=== PATIENT | male | born 1945 | race Caucasian/White ===

== ENCOUNTER 2019-05-31 01:59 | Day surgery (SDC) | payer MEDICARE, SELFPAY ==
[2019-05-29 14:17] VITALS: BMI 27.0
[2019-05-31 06:19] VITALS: BP 154/64; PULSE 74; RESP 16; TEMP 36.6; O2SAT 100; BMI 27.8
[2019-05-31] MEDS: LACTATED RINGERS 1,000 ML 150 ML IV CONT (06:51)
--- NOTE | 2019-05-31 06:58 | PM.HPGS ---
History of Present Illness History of Present Illness Consent: Risks, benefits, and alternatives have been discussed and questions answered. Patient agrees to proceed with procedure. Chief complaint: Neoplasm Screening/History of Polyps Narrative: Kun Borjas is a 74 year old male With family history of colon cancer here for screening colonoscopy Meds Home Medications and Allergies Home Medications Medication Instructions Recorded Confirmed Type aspirin 81 mg PO DAILY 05/29/19 05/31/19 History fenofibrate 160 mg PO DAILY 05/29/19 05/31/19 History magnesium 30 mg PO DAILY 05/29/19 05/31/19 History metoprolol succinate 50 mg PO DAILY 05/29/19 05/31/19 History Allergies Allergy/AdvReac Type Severity Reaction Status Date / Time meperidine Allergy Severe STOPS HIS Verified 05/31/19 06:34 HEART Tetanus Vaccines and Toxoid Allergy Intermediate Rash Verified 05/29/19 14:02 Vital Signs Vital Signs - 24 hr 05/31/19 06:19 Temperature 36.6 C Pulse Rate 74 Respiratory Rate 16 Blood Pressure 154/64 H Pulse Oximetry 100 Exam Resp: Auscultation: clear to auscultation bilaterally Cardio: Rate: regular rate Rhythm: regular rhythm GI: GI Palp: Yes Soft to palpation and No Tenderness to palpation present (GI) Assessment and Plan Assessment and plan (1) Family history of colon cancer: Code(s): Z80.0 - Family history of malignant neoplasm of digestive organs Status: Acute Assessment and Plan: Colonoscopy with possible biopsy or polypectomy or cautery or injection of substances.
--- NOTE | 2019-05-31 07:15 | WPDANESEPPF ---
Anes - Initial Pre Proc Eval Procedure: Operation Date: 05/31/19 07:30 Proposed Procedures p Screening Colonoscopy - Baron Muniz MD Date/Time: 05/31/19 07:15 Surgeon: Baron Muniz MD Pre Op Diagnosis: Neoplasm Screening/History of Polyps Patient Data Age: 74 Gender: M Height: 5 ft 9 in Weight: 85.5 kg Last Vital Signs Temp 98 F 05/31/19 06:19 Pulse 74 05/31/19 06:19 Resp 16 05/31/19 06:19 BP 154/64 H 05/31/19 06:19 Pulse Ox 100 05/31/19 06:19 Allergies Allergy/AdvReac Type Severity Reaction Status Date / Time meperidine Allergy Severe STOPS HIS Verified 05/31/19 06:34 HEART Tetanus Vaccines and Toxoid Allergy Intermediate Rash Verified 05/29/19 14:02 Home Medications Medication Instructions Recorded Confirmed Type aspirin 81 mg PO DAILY 05/29/19 05/31/19 History fenofibrate 160 mg PO DAILY 05/29/19 05/31/19 History magnesium 30 mg PO DAILY 05/29/19 05/31/19 History metoprolol succinate 50 mg PO DAILY 05/29/19 05/31/19 History Patient hx anesthesia problems: none Family hx anesthesia problems: none PMFSH Past Medical History Medical History (Updated 05/31/19 @ 07:14 by Matthew Francois MD) CAD (coronary artery disease) GERD (gastroesophageal reflux disease) Pacemaker Anes - Eval Final PreProcedure Day of Procedure 05/31/19 07:15 Patient weight: obese Heart: regular rate and rhythm Lungs: clear to auscultation Airway: Mallampati scale class III Neurological: alert and oriented Last oral intake: >/= 8 hours ASA classification: III Emergent: no Anesthetic plan: proceed Anesthesia type and monitoring: general GIVS and standard monitoring Informed Consent: The patient's anesthetic plan and its attendant risks and benefits were discussed with the patient/family/POA. Questions were solicited and answers provided to the satisfaction of the patient/family/POA.
[2019-05-31 07:34] VITALS: BP 111/59; PULSE 71; RESP 14; O2SAT 96
[2019-05-31 07:44] VITALS: BP 108/61; PULSE 72; RESP 14; O2SAT 96
[2019-05-31 07:54] VITALS: BP 127/64; PULSE 68; RESP 16; O2SAT 100
[2019-05-31 08:04] VITALS: BP 129/67; PULSE 70; RESP 14; O2SAT 100
== END 2019-05-31 08:21 | disposition home or self-care (01) ==
PROVIDERS: PCP Nurse Practitioner Adult Health; Visit Provider Internal Medicine Gastroenterology
PROC: 0DJD8ZZ Inspection of Lower Intestinal Tract, Via Natural or Artificial Opening Endoscopic (ICD-10-PCS; CPT 45378; principal; 2019-05-31 07:30)
DX: Z12.11 Encounter for screening for malignant neoplasm of colon (principal); K57.30 Diverticulosis of large intestine without perforation or abscess without bleeding; Z80.0 Family history of malignant neoplasm of digestive organs; I25.10 Atherosclerotic heart disease of native coronary artery without angina pectoris; K21.9 Gastro-esophageal reflux disease without esophagitis; Z95.0 Presence of cardiac pacemaker; Z79.82 Long term (current) use of aspirin; E66.9 Obesity, unspecified; Z68.27 Body mass index [BMI] 27.0-27.9, adult
CPT/HCPCS: G0105; J2704; J7120

== ENCOUNTER 2019-07-10 15:15 | Observation (INO) | payer MEDICARE, OTHER, SELFPAY ==
[2019-07-10] VITALS (13 sets, daily range): BP systolic 115–139; BP diastolic 55–83; PULSE 71–83; RESP 14–18; TEMP 36.5–37.1; O2SAT 96–100; BMI 26.9
--- NOTE | ~2019-07-10 | XR_ITS ---
EXAMINATION: XR chest 1V portable EXAM DATE: 07/10/2019 15:56 INDICATION: Weakness, shortness of breath, fever and cough. Vomiting. TECHNIQUE: Portable AP frontal chest x-ray was obtained. Comparison is made to prior examination from 12/28/2016. FINDINGS: There is a dual lead pacemaker/AICD seen with leads projecting over the expected locations of the right atrial appendage and right ventricle. The lungs are clear. There are no pleural effusio ns. Cardiac silhouette is prominent but magnified on this AP technique. There is no pneumothorax s uspected. There are mild bony degenerative changes. There are cholecystectomy clips. IMPRESSION: No acute cardiopulmonary findings. Reviewed, dictated and finalized at location A.
--- NOTE | 2019-07-10 15:30 | ECG_ITS ---
Measurements Intervals [place] Rate: 80 P: 41 NH: 188 QRS: -11 QRSD: 169 T: 85 QT: 407 QTc: 472 Interpretive Statements ATRIAL SENSE- ELECTRONIC VENTRICULAR PACEMAKER BASELINE ARTIFACT- I, II, III, AVR, AVL, AVF NO FURTHER INTERPRETATION IS POSSIBLE ATYPICAL ECG Electronically Signed On 07-10-2019 16:17:18 CDT by Martell Reyes D.O.
--- NOTE | 2019-07-10 16:06 | PC.NURSE ---
AYSHA from Dr. Pete to continue NS infusion from EMS at bolus rate
--- NOTE | 2019-07-10 16:15 | ED.WEAKNESS ---
HPI - Weakness General Chief complaint: Weakness Stated complaint: FATIQUE/COUGH/FEVER Time Seen by Provider: 07/10/19 15:34 Source: patient Mode of arrival: EMS Limitations: no limitations History of Present Illness HPI Narrative: Patient is a 68 6Y male presents to the emergency department via EMS for multiple complaints. Patient reports onset of symptoms approximately 10 days ago. Patient had fever as high as 101, cough, bilateral rib pain, nausea, and vomiting. Patient states the cough and rib pain have improved, but he is continued to have nausea and feeling ill. Patient states when he gets up he feels like he has to lay back down. He does not per se reports feeling sick at his stomach or dizzy, just weak and needing to lay back down. Patient was given some medications by his primary care physician for his respiratory symptoms. He states her respiratory symptoms improved, but he still is not eating or drinking much at all. Patient states he is urinating very little and his urine is dark. Patient spoke with his primary care today who advised to come to the ER for evaluation. Patient reports he has lost approximately 12 to 15 pounds. MD Complaint: generalized weakness Location: generalized Associated symptoms: chest pain, fever/chills, loss of appetite, nausea/vomiting and shortness of breath Related Data Home Medications Medication Instructions Recorded Confirmed aspirin 81 mg PO DAILY 05/29/19 05/31/19 fenofibrate 160 mg PO DAILY 05/29/19 05/31/19 metoprolol succinate 50 mg PO DAILY 05/29/19 05/31/19 cholecalciferol (vitamin D3) 25 mcg PO DAILY 07/10/19 [Vitamin D3] hydrocodone-acetaminophen 1 tablet PO Q8H PRN 07/10/19 magnesium 500 mg PO DAILY 07/10/19 pantoprazole 40 mg PO DAILY 07/10/19 vitamins A,C,[id number]-[id number] 1 tablet PO BID 07/10/19 [PreserVision AREDS] Allergies Allergy/AdvReac Type Severity Reaction Status Date / Time meperidine Allergy Severe STOPS HIS Verified 07/10/19 17:09 HEART Tetanus Vaccines and Toxoid Allergy Intermediate Rash Verified 07/10/19 17:09 Review of Systems Review of Systems: All systems reviewed & are unremarkable except as noted in HPI and below Constitutional: Constitutional: Reports chills, Reports excessive sweating, Reports fatigue, Reports fever(s), Reports malaise and Reports weakness Cardiovascular: Cardiovascular: Reports chest pain Respiratory: Respiratory: Reports cough and Reports dyspnea Gastrointestinal: Gastrointestinal: Reports abdominal pain, Reports nausea and Reports vomiting Musculoskeletal: Musculoskeletal: Reports back pain PMFSH Past Medical History Medical History CAD (coronary artery disease) Complete heart block COPD (chronic obstructive pulmonary disease) Depression GERD (gastroesophageal reflux disease) Hyperlipidemia Hypertension Pacemaker Pulmonary embolism Surgical History Surgical History History of appendectomy History of cardiac catheterization History of colonoscopy History of lumbar fusion History of repair of left rotator cuff Social History Social History (Updated 07/10/19 @ 16:23 by Sarah Pete MD) Living arrangements: with family Gender identity (if verbalized by the patient): Male Exam Const: General: cooperative, no acute distress and alert Nutritional Appearance: well nourished Orientation/consciousness: patient oriented x3 Limitations: no limitations Eyes: Conjunctivae: conjunctivae normal Pupils: Equal, round and reactive pupils present Resp: Effort & Inspection: normal respiratory effort Auscultation: clear to auscultation bilaterally Cardio: Rate: regular rate Rhythm: regular rhythm GI: GI Palp: Yes Soft to palpation and No Tenderness to palpation present (GI) Auscultation: normal bowel sounds Skin: General skin exam: normal color Neuro: General: patient
[2019-07-10 16:21] LABS: Basophils Percent Auto 0.4 % (0.2-1.2); Eosinophils Absolute Auto 0.6 K/mm3 (0-0.3); Eosinophils Percent Auto 7.4 % (0-4.4); Hematocrit 41.9 % (42.0-52.0); Hemoglobin 13.8 g/dL (14.0-18.0); Immature Granulocyte Absolute 0.02 K/mm3 (0.00-0.031); Immature Granulocyte Percent A 0.3 % (0-0.5); Lymphocytes Absolute Auto 1.75 K/mm3 (0.9-3.2); Lymphocytes Percent Auto 22.5 % (18.3-44.2); Mean Corpuscular HGB Conc 32.9 g/dl (32-36); Mean Corpuscular Hemoglobin 29.2 pg (26-34); Mean Corpuscular Volume 88.8 fl (80-100); Mean Platelet Volume 10.7 fl (7.4-10.4); Monocytes Absolute Auto 0.9 K/mm3 (0.1-0.6); Neutrophils Absolute Auto 4.6 K/mm3 (1.3-6.7); Neutrophils Percent Auto 58.4 % (45.5-73.1); Platelet Count Result 186 k/mm3 (150-375); Red Blood Count 4.72 M/mm3 (4.6-6.20); Red Cell Distribution Width 13.7 % (11.5-14.5); White Blood Count 7.8 K/mm3 (4.5-10.0)
[2019-07-10 16:27] LABS: Add Urine Microscopic? YES; Appearance Urine Clear (Clear); Bacteria Urine Trace /hpf; Bilirubin Urine Negative (Negative); Blood Urine Negative (Negative); Color Urine Yellow (Yellow); Glucose Urine UA Negative (Negative); Ketones Urine Negative (Negative); Leukocyte Esterase Ur Negative LEU/UL (Negative); Mucus Urine Heavy /lpf; Nitrate Urine Negative (Negative); Protein Urine 1+ mg/dL (Negative); Specific Grav Ur 1.026 (1.001-1.035); Squamous Epithelial Cell Urine Rare /hpf (Few); Urobilinogen Urine Negative mg/dL (<2.0); WBC Urine 0-3 /hpf
[2019-07-10 16:48] LABS: Alanine Aminotransferase 55 U/L (4-50); Alkaline Phosphatase 74 U/L (38-126); Aspartate Amino Transferase 70 U/L (17-59); Bilirubin,Total 0.5 mg/dL (0.2-1.3); Blood Urea Nitrogen 19 mg/dL (9-20); Carbon Dioxide 28 mmol/L (22-30); Chloride 103 mmol/L (98-107); Creatine Kinase 35 U/L (55-170); Estimated Glomerular Filt Rate 54; Glucose 153 mg/dL (75-110); Magnesium 2.1 mg/dL (1.6-2.3); Phosphorus 3.2 mg/dL (2.5-4.5); Sodium 138 mmol/L (137-145)
[2019-07-10 17:02] LABS: NT Pro B Type Natriuretic Pept 551 PG/ML (5-100); Troponin I < 0.012 ng/mL (0.000-0.034)
[2019-07-10] MEDS: LACTATED RINGERS 1,000 ML 999 ML IV CONT (17:15)
--- NOTE | 2019-07-10 20:38 | PC.NURSE ---
Patient reporting he would like a medication for his headache. EDP Yanci notified.
[2019-07-10] MEDS: ACETAMINOPHEN 500 MG TABLET 1000 MG PO (21:09)
--- NOTE | 2019-07-10 21:50 | ADMGEN ---
This patient, Kun Borjas, was admitted to [facility] Surg Room 325-01. Patient/family oriented to hospital policies and general routines including ID bracelet, bed and alarms, visiting hours, pain management, procedures, bathroom and other care routines, personal items, smoking policy, room service/diet, and visiting hours. Valuables list has been completed. Information on how to activate the Rapid Response Team has been discussed. Patient/Family are encouraged to report perceived risks to care and to ask questions if they do not understand what they are told or what they should do.
[2019-07-10] MEDS: LACTATED RINGERS 1,000 ML 150 ML IV CONT (22:19)
[2019-07-11 02:00] VITALS: BP 124/61; PULSE 76; RESP 18; TEMP 36.4; O2SAT 100
[2019-07-11] MEDS: ACETAMINOPHEN 325 MG TABLET 650 MG PO ×2 (04:45→15:44)
[2019-07-11] MEDS: LACTATED RINGERS 1,000 ML 150 ML IV CONT ×2 (04:46→11:36)
[2019-07-11 06:00] VITALS: BP 121/49; PULSE 72; RESP 18; TEMP 36.6; O2SAT 95
[2019-07-11 06:31] LABS: Hematocrit 36.5 % (42.0-52.0); Hemoglobin 12.5 g/dL (14.0-18.0); Mean Corpuscular HGB Conc 34.2 g/dl (32-36); Mean Corpuscular Hemoglobin 29.6 pg (26-34); Mean Corpuscular Volume 86.5 fl (80-100); Mean Platelet Volume 10.6 fl (7.4-10.4); Platelet Count Result 193 k/mm3 (150-375); Red Blood Count 4.22 M/mm3 (4.6-6.20); Red Cell Distribution Width 13.8 % (11.5-14.5); White Blood Count 7.1 K/mm3 (4.5-10.0)
--- NOTE | 2019-07-11 06:50 | PM.IMHP ---
H&P: HPI History of Present Illness Chief complaint: Weakness, headache Narrative: Date and time of patient contact: 07/11/2019 Kun Borjas is a 74 year old male with a past medical history of third-degree heart block, hypertension and GERD who presented to the ER via EMS due to viral symptoms. He reported that about 10 days ago he started having cough fever as high as 101 and nausea. A few days later did have a couple of days of vomiting. He went to his primary care provider and received some pills for his respiratory symptoms which helped his cough. He reports that when he gets up he feels weak and is nausea worsens and he has to lay back down. He denies actually being dizzy but just states that he needs to lay back down again. He has not been eating or drinking much at all. He is urinating only small amounts but this has improved after IV fluids. His urine has been darker than usual. He denies any hematuria. He denies any ill contacts. He has been practicing social uniRow. The patient reports that he has also between 12 and 15 lb. He reports that he now wants to eat breakfast. He has been afebrile since admission. He does not have an oxygen requirement. His orthostatic vital signs demonstrated 10 point drop in systolic blood pressure between lying down and sitting up however he was asymptomatic with does position changes. When he went to stand up his blood pressure actually increased and he was dizzy and lightheaded. He reports that he was having episodes of hallucinations. He would wake up where he felt as if he did not recognize his bedroom. Another time when he woke up he thought that there was recording equipment in his bedroom. However he denies any confusion at this time. Review of Systems Review of Systems: Narrative: 12 systems were reviewed with pertinent positives and negatives per HPI. Except as documented in the HPI, all other systems were reviewed and are negative. [facility] Past Medical History Medical History (Updated 07/11/19 @ 05:11 by No Flores DO) CAD (coronary artery disease) Nonobstructive coronary artery disease with 50% stenosis of the LAD and 40% stenosis of the RCA on cardiac catheterization December 2016 Complete heart block Status post pacemaker placement COPD (chronic obstructive pulmonary disease) Depression GERD (gastroesophageal reflux disease) Hyperlipidemia Hypertension Macular degeneration Pacemaker Pulmonary embolism Surgical History Surgical History (Updated 07/11/19 @ 05:11 by No Flores DO) History of appendectomy History of cardiac catheterization December 2016 Dr. Serrano History of colonoscopy History of lumbar fusion L3-4 5 in S1 History of repair of left rotator cuff Family History Family History (Updated 07/11/19 @ 05:12 by No Flores DO) Mother Left bundle branch block Sibling Coronary artery disease Sister Father Cerebrovascular accident Social History Social History (Updated 07/11/19 @ 09:40 by No Flores DO) Social History: Primary care provider: Misti Bynum NP Code status: Full code Advanced directives: No Smoking status: Never smoker Alcohol intake: never Substance use: never Living arrangements: with family Additional living arrangements comments: He lives with his of 57 years. Additional occupation/education comments: He has a Ms. is shar who plays the [employer] Gender identity (if verbalized by the patient): Male Spiritual care concerns: No Agree to blood products: Yes Meds Home Medications and Allergies Home Medications Medication Instructions Recorded Confirmed Type aspirin 81 mg PO DAILY 05/29/19 07/10/19 History fenofibrate 160 mg PO QPM 05/29/19 07/10/19 History metoprolol succinate 50 mg PO QPM 05/29/19 07/10/19 History cholecalciferol (vitamin D3) 25 mcg PO DAILY 07/10/19 07/10/19 History [Vitamin D3] hydrocodone-acetaminoph
[2019-07-11 06:53] LABS: Alanine Aminotransferase 48 U/L (4-50); Albumin Level 3.3 g/dL (3.5-5.1); Alkaline Phosphatase 63 U/L (38-126); Aspartate Amino Transferase 62 U/L (17-59); Bilirubin,Total 0.5 mg/dL (0.2-1.3); Blood Urea Nitrogen 16 mg/dL (9-20); Calcium 8.6 mg/dL (8.4-10.2); Carbon Dioxide 26 mmol/L (22-30); Chloride 107 mmol/L (98-107); Estimated CRCL calculation 56 ml/min; Estimated Glomerular Filt Rate > 60; Glucose 98 mg/dL (75-110); Sodium 138 mmol/L (137-145)
[2019-07-11] MEDS: ASPIRIN 81 MG ENTERIC TABLET PO (09:41)
[2019-07-11] MEDS: ENOXAPARIN 40 MG/0.4 ML SYRINGE SUB-Q (09:44)
[2019-07-11] MEDS: PANTOPRAZOLE 40 MG TABLET PO (09:45)
[2019-07-11] MEDS: OPTI-GEN TAB 1 TABLET PO (09:45)
[2019-07-11 10:00] VITALS: BP 116/52; PULSE 73; RESP 18; TEMP 36.3; O2SAT 99
[2019-07-11 11:11] VITALS: BMI 26.9
[2019-07-11 13:42] LABS: SARS-CoV-2 RNA PCR Negative
[2019-07-11 13:57] VITALS: BP 120/58; PULSE 70; RESP 18; TEMP 36.3; O2SAT 100
--- NOTE | 2019-07-11 14:15 | PC.NURSE ---
Notified Ceasar JARRELL that patient COVID test came back negative. No new orders were obtained.
--- NOTE | 2019-07-11 15:01 | PM.DS ---
DS: Diagnosis Admitting Diagnosis Admitting Diagnosis: Other general symptoms and signs Discharge Diagnosis (1) Suspected COVID-19 virus infection: Code(s): R68.89 - Other general symptoms and signs Status: Acute Assessment and Plan: COVID-19 testing negative. Other viral syndrome vs resolving COVID infection as his symptoms started roughly 10 days ago Patient's symptoms nearly resolved although still feels achy. Clinical improvement with IVF. Discharge home today Continue supportive care with antitussives, tylenol, and PO fluids Follow up with PCP Will provide patient with CDC recommendations on self isolation in case this was a true/resolving COVID infection or if testing was false negative (2) Dehydration: Code(s): E86.0 - Dehydration Status: Acute Assessment and Plan: Patient reports improved urine output again this afternoon. He feels much better today Discussed again about keeping hydrated with water, pediasure, gatorade, or other products (3) Generalized weakness: Code(s): R53.1 - Weakness Status: Acute Assessment and Plan: Improved after IV fluid hydration. Refused PT/OT evaluation. Feels comfortable returning home See above a/p DS: Summary Hospital Course Reason for hospitalization: Suspected COVID r/o, dehydration Hospital Course: Patient is a 74 yo M with history of third-degree heart block, hypertension and GERD who presented to the ER on 07/09 via EMS due to viral symptoms. Patient reported symptoms of cough, fever, and nausea started roughly 10 days prior. A few days later, he developed vomiting. His PCP prescribed medications for his respiratory symptoms which helped his cough. While in the ER, he was found to be likely dehydrated and given IVF. COVID was suspected and patient was tested in the ER. Please see H&P for further details Presenting VS: Temp Pulse Resp BP Pulse Ox 98.7 F 80 17 131/57 L 97 RA 07/10/19 15:31 07/10/19 15:31 07/10/19 15:31 07/10/19 15:31 07/10/19 15:31 Presenting Pertinent labs: AST 70, ALT 55, troponin negative, BNP 551. COVID testing negative. CBC, chemistry, and UA otherwise unremarkable Micro: none Imaging: Chest X-Ray 07/10/19 16:06 IMPRESSION: No acute cardiopulmonary findings. ECG: Interpretive Statements ATRIAL SENSE- ELECTRONIC VENTRICULAR PACEMAKER BASELINE ARTIFACT- I, II, III, AVR, AVL, AVF NO FURTHER INTERPRETATION IS POSSIBLE ATYPICAL ECG Patient was admitted to the hospitalist service for further evaluation for COVID rule out. During stay, patient's symptoms improved signficantly with IVF. Patient began to regain his appetite and tolerated his meals after admission. He remained on RA. Since COVID testing was negative, and patient was clinically improving, plan was for discharge home for further care. It was felt that this still may be a viral illness, possibly resolving COVID, so patient was given information from [facility] for further isolation due to some slightly lingering symptoms (achiness). Patient was to follow up with PCP after discharge. Supportive care, particularly adequate oral hydration was recommended. Patient was hemodynamically stable and in improved condition for discharge on 07/10. Patient agreeable and comfortable with plan. Status at Discharge Overall status at discharge: patient is progressing back to baseline Time Spent with Patient Time attestation: Total time spent providing and/or coordinating discharge services: Time spent: Greater than 30 minutes Exam Narrative: Exam Narrative: Patient lying supine in bed at time of visit Const: General: cooperative, comfortable, no acute distress, well developed, alert and awake Nutritional Appearance: well nourished and overweight Orientation/consciousness: patient oriented x3 HENMT:
== END 2019-07-11 16:16 | disposition home or self-care (01) ==
LOC: ANHED 20:39 → ANH3MEDSUR 07-11 05:07
PROVIDERS: Internal Medicine; Admitting Provider Internal Medicine; Emergency Provider Emergency Medicine; PCP Nurse Practitioner Adult Health; Visit Provider Physician Assistant
DX: R68.89 Other general symptoms and signs (principal); R05 Cough; R50.9 Fever, unspecified; R11.2 Nausea with vomiting, unspecified; Z20.828 Contact with and (suspected) exposure to other viral communicable diseases; E86.0 Dehydration; R53.1 Weakness; I25.10 Atherosclerotic heart disease of native coronary artery without angina pectoris; I44.2 Atrioventricular block, complete; I10 Essential (primary) hypertension; J44.9 Chronic obstructive pulmonary disease, unspecified; K21.9 Gastro-esophageal reflux disease without esophagitis; E78.5 Hyperlipidemia, unspecified; H35.30 Unspecified macular degeneration; Z86.711 Personal history of pulmonary embolism; Z79.82 Long term (current) use of aspirin; Z79.899 Other long term (current) drug therapy; Z88.5 Allergy status to narcotic agent; Z88.7 Allergy status to serum and vaccine; Z95.0 Presence of cardiac pacemaker; Z98.1 Arthrodesis status
CPT/HCPCS: 36415; 71045; 80053; 81001; 82550; 83735; 83880; 84100; 84484; 85025; 85027; 87635; 93005; 96360; 96361; 96372; 99285; A9270; C9803; G0378; J1650; J7120; U0003

== ENCOUNTER 2019-10-23 12:22 | Emergency (ER) | payer MEDICARE, OTHER, SELFPAY ==
--- NOTE | ~2019-10-23 | XR_ITS ---
EXAMINATION: XR chest 1V portable INDICATION: Weakness chills and fever TECHNIQUE: Portable AP chest at 1311 hours COMPARISON: 07/10/2019 FINDINGS: The lungs are free of acute opacities. There is no pleural effusion or pneumothorax. The ca rdiomediastinal silhouette is normal. A dual-lead cardiac pacemaker of the left chest wall ends with leads in expected locations. IMPRESSION: 1. No acute cardiopulmonary abnormality. Reviewed, dictated and finalized at location A.
--- NOTE | ~2019-10-23 | CT_ITS ---
EXAMINATION: CT brain wo con INDICATION: Headache and fever COMPARISON: None TECHNIQUE: Standard unenhanced head CT. The dose-length product (DLP) was 605.33 mGy-cm. The mA was a djusted according to patient size. Iterative reconstruction technique was employed. FINDINGS: There is no acute intraparenchymal hemorrhage. No evidence of mass lesion. No evidence of a cute infarction. There is mild periventricular and subcortical hypodensity probably related to small vessel ischemic disease. There is mild prominence of the sulci and ventricles related to cerebral atr ophy. Intracranial calcified cerebral atherosclerosis is noted. There are no extra-axial collections. There is no mass effect or midline shift. The orbits and soft tissues are unremarkable. There is mi ld mucosal thickening of the paranasal sinuses. IMPRESSION: 1. No acute intracranial abnormality. 2. Age related findings. Reviewed, dictated and finalized at location A.
--- NOTE | 2019-10-23 12:39 | ECG_ITS ---
Measurements Intervals [place] Rate: 97 P: 50 HI: 211 QRS: -73 QRSD: 166 T: 73 QT: 400 QTc: 508 Interpretive Statements ATRIAL SENSE- ELECTRONIC VENTRICULAR PACEMAKER NO FURTHER INTERPRETATION IS POSSIBLE ATYPICAL ECG Electronically Signed On 10-23-2019 12:48:37 CDT by Martell Reyes D.O.
[2019-10-23 12:40] VITALS: BP 130/64; PULSE 96; RESP 13; TEMP 37.7; O2SAT 95
[2019-10-23 12:41] VITALS: PULSE 96
[2019-10-23 13:20] VITALS: BP 130/62; PULSE 88; RESP 14; O2SAT 95
[2019-10-23 13:34] LABS: Basophils Percent Auto 0.3 % (0.2-1.2); Hematocrit 41.2 % (42.0-52.0); Immature Granulocyte Absolute 0.02 K/mm3 (0.00-0.031); Immature Granulocyte Percent A 0.3 % (0-0.5); Lymphocytes Absolute Auto 1.19 K/mm3 (0.9-3.2); Lymphocytes Percent Auto 17.8 % (18.3-44.2); Mean Corpuscular Hemoglobin 29.8 pg (26-34); Mean Corpuscular Volume 87.7 fl (80-100); Mean Platelet Volume 9.9 fl (7.4-10.4); Monocytes Absolute Auto 0.6 K/mm3 (0.1-0.6); Monocytes Percent Auto 8.4 % (2.6-8.5); Neutrophils Absolute Auto 4.9 K/mm3 (1.3-6.7); Neutrophils Percent Auto 73.2 % (45.5-73.1); Platelet Count Result 184 k/mm3 (150-375); Red Cell Distribution Width 13.5 % (11.5-14.5); White Blood Count 6.7 K/mm3 (4.5-10.0)
--- NOTE | 2019-10-23 13:38 | ED.WEAKNESS ---
HPI - Weakness General Chief complaint: Weakness Stated complaint: FEVER,WEAKNESS,BALTAZAR Time Seen by Provider: 10/23/19 13:20 Source: patient Mode of arrival: ambulatory Limitations: no limitations History of Present Illness HPI Narrative: This patient is a 74 year old male who presents for evaluation of fever and headache. He states for 4 days he has had constant frontal headache. He also has been having low grade temperatures. Last night he developed a fever 102 F. He reports nausea and a poor appetite. He has a mild cough, but he denies sob, chest pain, vomiting, diarrhea or abdominal pain. This past June he was diagnosed with COVID and he had the same symptoms. Related Data Home Medications Medication Instructions Recorded Confirmed aspirin 81 mg PO DAILY 05/29/19 07/10/19 fenofibrate 160 mg PO QPM 05/29/19 07/10/19 metoprolol succinate 50 mg PO QPM 05/29/19 07/10/19 PreserVision AREDS 1 tablet PO BID 07/10/19 07/10/19 cholecalciferol (vitamin D3) 25 mcg PO DAILY 07/10/19 07/10/19 [Vitamin D3] hydrocodone-acetaminophen 1 tablet PO Q8H PRN 07/10/19 07/10/19 magnesium 500 mg PO DAILY 07/10/19 07/10/19 pantoprazole 40 mg PO QAM 07/10/19 07/10/19 Allergies Allergy/AdvReac Type Severity Reaction Status Date / Time meperidine Allergy Severe STOPS HIS Verified 07/10/19 17:09 HEART Tetanus Vaccines and Toxoid Allergy Intermediate Rash Verified 07/10/19 17:09 Review of Systems Review of Systems: All systems reviewed & are unremarkable except as noted in HPI and below Constitutional: Constitutional: Reports fatigue and Reports fever(s) ENT: Denies nasal congestion Cardiovascular: Cardiovascular: Denies chest pain Respiratory: Respiratory: Reports cough and Denies dyspnea Gastrointestinal: Gastrointestinal: Denies vomiting Musculoskeletal: Musculoskeletal: Reports back pain Neurologic: Denies vertigo, Reports headache(s), Denies focal weakness and Denies weakness [facility] Past Medical History Medical History (Updated 10/23/19 @ 15:31 by Queenie Damon MD) CAD (coronary artery disease) Nonobstructive coronary artery disease with 50% stenosis of the LAD and 40% stenosis of the RCA on cardiac catheterization December 2016 Complete heart block Status post pacemaker placement COPD (chronic obstructive pulmonary disease) Depression GERD (gastroesophageal reflux disease) Hyperlipidemia Hypertension Macular degeneration Pacemaker Pulmonary embolism Surgical History Surgical History (Updated 07/11/19 @ 05:11 by No Flores DO) History of appendectomy History of cardiac catheterization December 2016 Dr. Serrano History of colonoscopy History of lumbar fusion L3-4 5 in S1 History of repair of left rotator cuff Family History Family History (Updated 07/11/19 @ 05:12 by No Flores DO) Mother Left bundle branch block Sibling Coronary artery disease Sister Father Cerebrovascular accident Social History Social History (Updated 07/11/19 @ 09:40 by No Flores DO) Social History: Primary care provider: Misti Bynum NP Code status: Full code Advanced directives: No Smoking status: Never smoker Alcohol intake: never Substance use: never Additional living arrangements comments: He lives with his of 57 years. Additional occupation/education comments: He has a Ms. is shar who plays the [employer]. Gender identity (if verbalized by the patient): Male Spiritual care concerns: No Agree to blood products: Yes Exam Narrative: Exam Narrative: GENERAL: Well-appearing, well-nourished, and in no acute distress. HEAD: Normocephalic, atraumatic EYES: PERRLA and EOMI, conjunctiva clear without discharge EARS: TM's clear bilaterally without erythema or dullness THROAT:Mucous membranes moist, Oropharynx normal without erythema, exudate, peritonsillar swelling or fluctuance NECK: Supple, without lymphadenopathy or mass RESPI
[2019-10-23 13:42] LABS: Add Urine Microscopic? YES; Appearance Urine Clear (Clear); Bacteria Urine Trace /hpf; Bilirubin Urine Negative (Negative); Blood Urine Negative (Negative); Color Urine Yellow (Yellow); Glucose Urine UA Negative (Negative); Ketones Urine Negative (Negative); Leukocyte Esterase Ur Negative LEU/UL (Negative); Mucus Urine Rare /lpf; Nitrate Urine Negative (Negative); Protein Urine Negative (Negative); Specific Grav Ur 1.029 (1.001-1.035); Squamous Epithelial Cell Urine Rare /hpf (Few); Urobilinogen Urine Negative mg/dL (<2.0); WBC Urine 0-3 /hpf
[2019-10-23 13:47] LABS: Alanine Aminotransferase 19 U/L (4-50); Alkaline Phosphatase 67 U/L (38-126); Anion Gap 13.7 mmol/L (7-16); Aspartate Amino Transferase 33 U/L (17-59); Bilirubin,Total 0.7 mg/dL (0.2-1.3); Blood Urea Nitrogen 19 mg/dL (9-20); Calcium 8.7 mg/dL (8.4-10.2); Carbon Dioxide 25 mmol/L (22-30); Chloride 101 mmol/L (98-107); Estimated CRCL calculation 51 ml/min; Estimated Glomerular Filt Rate > 60; Glucose 136 mg/dL (75-110); Potassium 3.7 mmol/L (3.4-5.0); Sodium 136 mmol/L (137-145)
--- NOTE | 2019-10-23 13:47 | PC.NURSE ---
[facility] per provider order upon her return.
[2019-10-23 14:02] VITALS: BP 116/59; PULSE 87; RESP 14; TEMP 37.3; O2SAT 96
[2019-10-23 14:30] LABS: INR 1.2; Partial Thromboplastin Time 30.6 SECONDS (22.3-36.8); Prothrombin Time 14.6 Seconds (11.1-14.7)
[2019-10-23 14:31] LABS: Magnesium 1.8 mg/dL (1.6-2.3)
[2019-10-23 14:32] LABS: Lactic Acid Reflex 0.8 mmol/L (0.7-2.1)
[2019-10-23 14:35] LABS: CRP 4.3 mg/dL (<1.0); Lactate Dehydrogenase 474 U/L (313-618)
[2019-10-23] MEDS: SODIUM CHLORIDE 0.9% IV 1,000 ML 999 ML IV CONT (14:45)
[2019-10-23 14:54] VITALS: BP 116/65; PULSE 80; RESP 12; O2SAT 95
[2019-10-23 15:48] VITALS: BP 128/61; PULSE 81; RESP 18; O2SAT 97
[2019-10-23 22:54] LABS: SARS-CoV-2 RNA PCR Negative
== END 2019-10-23 15:49 | disposition home or self-care (01) ==
PROVIDERS: Emergency Provider General Practice; PCP Nurse Practitioner Adult Health
DX: E86.0 Dehydration (principal); I25.10 Atherosclerotic heart disease of native coronary artery without angina pectoris; J44.9 Chronic obstructive pulmonary disease, unspecified; F32.9 Major depressive disorder, single episode, unspecified; K21.9 Gastro-esophageal reflux disease without esophagitis; E78.5 Hyperlipidemia, unspecified; I10 Essential (primary) hypertension; Z95.0 Presence of cardiac pacemaker; Z20.828 Contact with and (suspected) exposure to other viral communicable diseases
CPT/HCPCS: 36415; 70450; 71045; 80053; 81001; 83605; 83615; 83735; 85025; 85610; 85730; 86140; 87040; 87635; 93005; 96361; 96374; 99284; C9803; J0131; J7030; U0003

== ENCOUNTER → 2020-08-04 04:30 | Outpatient (CLI) | payer MEDICARE, OTHER, SELFPAY ==
[2020-08-04 20:07] LABS: SARS-CoV-2 RNA PCR Negative
== END ==
PROVIDERS: PCP Nurse Practitioner Adult Health; Visit Provider Internal Medicine Gastroenterology
DX: Z01.812 Encounter for preprocedural laboratory examination (principal); Z20.822 Contact with and (suspected) exposure to COVID-19
CPT/HCPCS: C9803; U0003; U0005

== ENCOUNTER 2020-08-07 03:47 | Day surgery (SDC) | payer MEDICARE, OTHER, SELFPAY ==
[2020-07-30 08:32] VITALS: BMI 27.3
[2020-08-07 06:44] VITALS: BP 142/79; PULSE 87; RESP 20; TEMP 36.6; O2SAT 95
[2020-08-07] MEDS: LACTATED RINGERS 1,000 ML 150 ML IV CONT (06:47)
--- NOTE | 2020-08-07 07:14 | PM.HPGS ---
History of Present Illness History of Present Illness Consent: Risks, benefits, and alternatives have been discussed and questions answered. Patient agrees to proceed with procedure. Chief complaint: change in bowel habits Narrative: Kun Borjas is a 75 year old male here for colon cancer screening. He has a family history of colon cancer on both sides. He had a recent attack of what seemed to be diverticulitis. By time he was able to get a CT scan the findings were simply that there was an excess amount of stool. Review of Systems Review of Systems: All systems reviewed & are unremarkable except as noted in HPI and below PMFSH Past Medical History Medical History CAD (coronary artery disease) Nonobstructive coronary artery disease with 50% stenosis of the LAD and 40% stenosis of the RCA on cardiac catheterization December 2016 Complete heart block Status post pacemaker placement COPD (chronic obstructive pulmonary disease) Depression GERD (gastroesophageal reflux disease) Hyperlipidemia Hypertension Macular degeneration Pacemaker Pulmonary embolism Surgical History Surgical History History of appendectomy History of cardiac catheterization December 2016 Dr. Serrano History of colonoscopy History of lumbar fusion L3-4 5 in S1 History of repair of left rotator cuff Family History Family History Mother Left bundle branch block Sibling Coronary artery disease Sister Father Cerebrovascular accident Social History Social History Social History: Primary care provider: Misti Bynum NP Code status: Full code Advanced directives: No Smoking status: Never smoker Alcohol intake: never Substance use: never Substance use type: does not use Living arrangements: with family Additional living arrangements comments: He lives with his of 57 years. 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 Gender identity (if verbalized by the patient): Male Spiritual care concerns: No Agree to blood products: Yes Meds Home Medications and Allergies Home Medications Medication Instructions Recorded Confirmed Type aspirin 81 mg PO DAILY 05/29/19 08/07/20 History fenofibrate 160 mg PO QPM 05/29/19 08/07/20 History metoprolol succinate 50 mg PO QPM 05/29/19 08/07/20 History PreserVision AREDS 1 tablet PO BID 07/10/19 08/07/20 History cholecalciferol (vitamin D3) 25 mcg PO DAILY 07/10/19 08/07/20 History [Vitamin D3] hydrocodone-acetaminophen 1 tablet PO Q8H PRN 07/10/19 07/30/20 History magnesium 500 mg PO DAILY 07/10/19 08/07/20 History pantoprazole 40 mg PO QAM 07/10/19 08/07/20 History Allergies Allergy/AdvReac Type Severity Reaction Status Date / Time meperidine Allergy Severe STOPS HIS Verified 08/07/20 06:42 HEART Tetanus Vaccines and Toxoid Allergy Intermediate Rash Verified 08/07/20 06:42 Vital Signs Vital Signs - 24 hr 08/07/20 06:44 Temperature 36.6 C Pulse Rate 87 Respiratory Rate 20 Blood Pressure 142/79 H Pulse Oximetry 95 Exam Resp: Auscultation: clear to auscultation bilaterally Cardio: Rate: regular rate Rhythm: regular rhythm GI: GI Palp: Yes Soft to palpation and No Tenderness to palpation present (GI) Assessment and Plan Assessment and plan (1) Colon cancer screening: Code(s): Z12.11 - Encounter for screening for malignant neoplasm of colon Status: Acute Assessment and Plan: Colonoscopy with possible biopsy or polypectomy or cautery or injection of substances.
--- NOTE | 2020-08-07 07:44 | WPDANESEPPF ---
Anes - Initial Pre Proc Eval Procedure: Operation Date: 08/07/20 08:00 Proposed Procedures p Colonoscopy - Baron Muniz MD Date/Time: 08/07/20 07:44 Surgeon: Baron Muniz MD Pre Op Diagnosis: change in bowel habits Patient Data Age: 75 Gender: M Height: 5 ft 9 in Weight: 82.9 kg Last Vital Signs Temp 97.8 F 08/07/20 06:44 Pulse 87 08/07/20 06:44 Resp 20 08/07/20 06:44 BP 142/79 H 08/07/20 06:44 Pulse Ox 95 08/07/20 06:44 Allergies Allergy/AdvReac Type Severity Reaction Status Date / Time meperidine Allergy Severe STOPS HIS Verified 08/07/20 06:42 HEART Tetanus Vaccines and Toxoid Allergy Intermediate Rash Verified 08/07/20 06:42 Home Medications Medication Instructions Recorded Confirmed Type aspirin 81 mg PO DAILY 05/29/19 08/07/20 History fenofibrate 160 mg PO QPM 05/29/19 08/07/20 History metoprolol succinate 50 mg PO QPM 05/29/19 08/07/20 History PreserVision AREDS 1 tablet PO BID 07/10/19 08/07/20 History cholecalciferol (vitamin D3) 25 mcg PO DAILY 07/10/19 08/07/20 History [Vitamin D3] hydrocodone-acetaminophen 1 tablet PO Q8H PRN 07/10/19 07/30/20 History magnesium 500 mg PO DAILY 07/10/19 08/07/20 History pantoprazole 40 mg PO QAM 07/10/19 08/07/20 History Patient hx anesthesia problems: none Family hx anesthesia problems: none [facility] Past Medical History Medical History CAD (coronary artery disease) Nonobstructive coronary artery disease with 50% stenosis of the LAD and 40% stenosis of the RCA on cardiac catheterization December 2016 Complete heart block Status post pacemaker placement COPD (chronic obstructive pulmonary disease) Depression GERD (gastroesophageal reflux disease) Hyperlipidemia Hypertension Macular degeneration Pacemaker Pulmonary embolism Surgical History Surgical History History of appendectomy History of cardiac catheterization December 2016 Dr. Serrano History of colonoscopy History of lumbar fusion L3-4 5 in S1 History of repair of left rotator cuff Family History Family History Mother Left bundle branch block Sibling Coronary artery disease Sister Father Cerebrovascular accident Social History Social History Social History: Primary care provider: Misti Bynum NP Code status: Full code Advanced directives: No Smoking status: Never smoker Alcohol intake: never Substance use: never Substance use type: does not use Living arrangements: with family Additional living arrangements comments: He lives with his of 57 years. Additional occupation/education comments: He has a Ms. is shar who plays the [employer]. Gender identity (if verbalized by the patient): Male Spiritual care concerns: No Agree to blood products: Yes Anes - Eval Final PreProcedure Day of Procedure 08/07/20 07:44 Patient weight: overweight Heart: regular rate and rhythm Lungs: clear to auscultation Airway: Mallampati scale class II Neurological: alert and oriented Last oral intake: >/= 8 hours ASA classification: III Emergent: no Anesthetic plan: proceed Anesthesia type and monitoring: general GIVS and standard monitoring Informed Consent: The patient's anesthetic plan and its attendant risks and benefits were discussed with the patient/family/POA. Questions were solicited and answers provided to the satisfaction of the patient/family/POA.
[2020-08-07 08:17] VITALS: BP 116/71; PULSE 66; RESP 16; O2SAT 99
[2020-08-07 08:27] VITALS: BP 121/69; PULSE 66; RESP 20; O2SAT 97
[2020-08-07 08:32] VITALS: BP 121/69; PULSE 66; RESP 20; O2SAT 97
[2020-08-07 08:37] VITALS: BP 121/69; PULSE 65; RESP 17; O2SAT 98
== END 2020-08-07 08:58 | disposition home or self-care (01) ==
PROVIDERS: PCP Nurse Practitioner Adult Health; Visit Provider Internal Medicine Gastroenterology
PROC: 0DJD8ZZ Inspection of Lower Intestinal Tract, Via Natural or Artificial Opening Endoscopic (ICD-10-PCS; CPT 45378; principal; 2020-08-07 08:00)
DX: Z12.11 Encounter for screening for malignant neoplasm of colon (principal); K57.30 Diverticulosis of large intestine without perforation or abscess without bleeding; K63.5 Polyp of colon; Z80.0 Family history of malignant neoplasm of digestive organs; I25.10 Atherosclerotic heart disease of native coronary artery without angina pectoris; J44.9 Chronic obstructive pulmonary disease, unspecified; I10 Essential (primary) hypertension; E78.5 Hyperlipidemia, unspecified; K21.9 Gastro-esophageal reflux disease without esophagitis; H35.30 Unspecified macular degeneration; Z95.0 Presence of cardiac pacemaker; Z86.711 Personal history of pulmonary embolism; Z98.1 Arthrodesis status; Z79.82 Long term (current) use of aspirin
CPT/HCPCS: 45380; 88305; J2001; J2704; J7120

== ENCOUNTER → 2021-03-23 10:03 | Outpatient (CLI) | payer MEDICARE, OTHER, SELFPAY ==
[2021-03-23 20:10] LABS: SARS-CoV-2 RNA PCR Positive
== END ==
PROVIDERS: PCP Nurse Practitioner Adult Health; Visit Provider Nurse Practitioner Adult Health
DX: U07.1 COVID-19 (principal)
CPT/HCPCS: C9803; U0003; U0005

== ENCOUNTER 2023-06-06 11:53 | Inpatient (IN) | payer MEDICARE, SELFPAY ==
[2023-06-06] VITALS (13 sets, daily range): BP systolic 114–174; BP diastolic 61–99; PULSE 87–109; RESP 9–20; TEMP 37.1; O2SAT 92–98; BMI 25.0
--- NOTE | ~2023-06-06 | CT_ITS ---
EXAMINATION: CT lumbar spine wo con DATE: 06/06/2023 14:25 INDICATION: Low back pain radiating down the left leg TECHNIQUE: Computed tomography (CT) of the lumbar spine was performed without intravenous contrast. A utomated exposure control and iterative reconstruction technique were employed. The dose-length produ ct was 571.23 mGy-cm. COMPARISON: None FINDINGS: 2 mm retrolisthesis L4 on L5 and L5 on S1 chronic appearing minimal anterior wedging at L1 with small Schmorl's node along the superior endplate. Remaining vertebral body heights are normal. M oderate disc height loss at L3-L4, L4-L5 and L5-S1 and mild disc height loss at L2-L3 and T12-L1. The re are bridging osteophytes on the right extending from T10-L1 and on the left at L2-L3 and bilateral ly at L3-L4 and L5-S1 consistent with diffuse idiopathic skeletal hyperostosis (DISH). There is fusio n across the posterior elements of L2-L4. There is also ankylosis across portion of the bilateral sac roiliac joints. Likely chronic bone graft harvest site at the right posterior iliac spine. Cholecyste ctomy clips the gallbladder fossa. There are couple gas-filled duodenal diverticulum measuring 2.5 cm at the posterior head of the pancreas arising from the second portion of the duodenum and an 0.5 sim ilar arising from the third portion of the duodenum. Paravertebral soft tissues are unremarkable. The following disc levels are specifically discussed: T11-T12: The disc does not extend beyond the endplate margin. Small amount of heterotopic ossificatio n and mild hypertrophy of the bilateral ligamentum flavum. There is mild bilateral facet joint osteoa rthritis. There is mild right and minimal left neural foraminal stenosis. There is mild central canal stenosis. T12-L1: The disc does not extend beyond the endplate margin. There is moderate bilateral facet joint osteoarthritis. There is mild right and no left neural foraminal stenosis. There is no central canal stenosis. L1-L2: Disc is mildly bulging with posterior endplate osteophyte along the margins of a small left pa racentral disc extrusion which appears to extend couple millimeter caudal to the level of the superio r endplate of L2. There is mild bilateral facet joint osteoarthritis. There is mild left and moderate right neural foraminal stenosis. There is mild to moderate central canal stenosis. L2-L3: The disc does not extend beyond the endplate margin. There is moderate bilateral facet joint o steoarthritis with fusion across the margins of the right facet joint. There is mild left and moderat e right neural foraminal stenosis. There is no central canal stenosis. L3-L4: The disc does not extend beyond the endplate margin. There is solid osseous fusion across the bilateral facet joints. There is no neural foraminal stenosis. There is posterior decompression with right-sided hemilaminotomy and no central canal stenosis. L4-L5: Posterior disc osteophyte complex is present. There is mild bilateral facet joint osteoarthrit is. There is moderate right and moderate to severe left neural foraminal stenosis. There is moderate to severe central canal stenosis. L5-S1: The disc does not extend beyond the endplate margin with small endplate osteophytes at the sandra ateral foraminal zones. There is mild to moderate left and mild right facet joint osteoarthritis. The re is marked bilateral neural foraminal stenosis. There is no central canal stenosis with posterior d ecompression and left-sided hemilaminotomy. IMPRESSION: 1. Moderate lumbar spondylosis with superimposed bridging osteophytes at multiple levels consistent w ith diffuse idiopathic skeletal hyperostosis (DISH). 2. Likely laminotomies for posterior decompression at L3-L4 and L5-S1. Correlate with surgical histor y. Reviewed, dictated and finalized at location A. Electronically signed by Davide Calloway M.D
--- NOTE | 2023-06-06 12:05 | ECG_ITS ---
Measurements Intervals [place] Rate: 89 P: 52 RI: 209 QRS: -76 QRSD: 177 T: 77 QT: 424 QTc: 516 Interpretive Statements ATRIAL SENSE- ELECTRONIC VENTRICULAR PACEMAKER BASELINE ARTIFACT- I NO FURTHER INTERPRETATION IS POSSIBLE ATYPICAL ECG COMPARED TO ECG 10/23/2019 12:34:44 NO SIGNIFICANT CHANGES Electronically Signed On 06-06-2023 12:49:53 CDT by Martell Reyes D.O.
--- NOTE | 2023-06-06 13:46 | ED.BACK ---
HPI - Back Pain/Injury General Chief Complaint: Back Pain/Injury Stated Complaint: back pain Time Seen by Provider: 06/06/23 12:06 History of Present Illness HPI Narrative: 78-year-old male presenting with acute on chronic lower back pain. States that he has a long history of lower back pain but it has been acutely worsening over the last month. States that he has seen his pain doctor twice who gave him pain injections which has not helped at all. States it use to help. States he has not been able to get out of bed for 25 days other than to have a bowel movement Which leaves him in tears because he is in so much pain. He called his doctor today who advised that he come to the ER for pain control and further evaluation. He denies any numbness or weakness. No saddle anesthesia, bladder or bowel incontinence. No fevers, body aches, or other systemic symptoms. No recent traumas. Related Data Home Medications Medication Instructions Recorded Confirmed aspirin 81 mg tablet,delayed 81 mg PO DAILY 05/29/19 06/06/23 release fenofibrate 160 mg tablet 160 mg PO QPM 05/29/19 06/06/23 metoprolol succinate 50 mg 50 mg PO QPM 05/29/19 06/06/23 tablet,extended release 24 hr cholecalciferol (vitamin D3) 25 25 mcg PO DAILY 07/10/19 06/06/23 mcg (1,000 unit) tablet (Vitamin D3) hydrocodone 5 mg-acetaminophen 325 1 tablet PO Q8H PRN Pain 07/10/19 06/06/23 mg tablet magnesium 250 mg tablet 500 mg PO DAILY 07/10/19 06/06/23 pantoprazole 40 mg tablet,delayed 40 mg PO QAM 07/10/19 06/06/23 release vitamins A,C,G-fcix-updvdi 2,148 1 tablet PO BID 07/10/19 06/06/23 mcg-113 mg-45 mg-17.4 mg tablet (PreserVision AREDS) Allergies Allergy/AdvReac Type Severity Reaction Status Date / Time meperidine Allergy Severe STOPS HIS Verified 06/06/23 12:04 HEART Tetanus Vaccines and Toxoid Allergy Intermediate Rash Verified 06/06/23 12:04 Review of Systems Review of Systems: All systems reviewed & are unremarkable except as noted in HPI and below PMFSH Past Medical History Medical History (Updated 06/09/23 @ 22:20 by Mabel Hughes MD) Chronic obstructive pulmonary disease Complete heart block Status post pacemaker placement Coronary artery disease Nonobstructive coronary artery disease with 50% stenosis of the LAD and 40% stenosis of the RCA on cardiac catheterization December 2016. Depression Gastroesophageal reflux disease Hyperlipidemia Hypertension Macular degeneration Pacemaker Pulmonary embolism Surgical History Surgical History History of appendectomy History of cardiac catheterization December 2016 Dr. Serrano History of colonoscopy History of lumbar fusion L3-4 5 in S1 History of repair of left rotator cuff Family History Family History Mother Left bundle branch block Sibling Coronary artery disease Sister Father Cerebrovascular accident Social History Social History (Updated 06/06/23 @ 23:04 by Grace Deshpande PA-C) Social History: Surrogate medical decision maker: Gitaval sabillon, spouse. Code status: Full code. Smoking status: Never smoker Alcohol intake: never Substance use: never Substance use type: does not use Do You Feel Safe in your Home?: Yes Lack of Transportation: No Lack of Food: Never True Current Housing: I Have Housing Concerned About Future Housing: No Difficulty Paying Gas/Electric Bills: No Difficulty Paying for Meds: No Currently Unemployed: No Education: Decline to Answer Difficulty w/ Childcare or Family Care: No Living arrangements: with family Additional living arrangements comments: He lives with his of nearly 60 years. 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 Spiritual care concerns: No Agree to blood products: Yes Exam Narrative:
[2023-06-06] MEDS: HYDROmorphone HCL INJ (*CRX) 1 MG/ML SYR IV PUSH (14:09)
[2023-06-06] MEDS: SODIUM CHLORIDE 0.9% IV 1,000 ML 999 ML IV CONT (14:09)
[2023-06-06 14:11] LABS: Basophils Percent Auto 0.1 % (0.2-1.2); Eosinophils Absolute Auto 0.4 K/mm3 (0-0.3); Eosinophils Percent Auto 2.8 % (0-4.4); Hematocrit 42.4 % (42.0-52.0); Hemoglobin 14.5 g/dL (14.0-18.0); Immature Granulocyte Absolute 0.05 K/mm3 (0.00-0.031); Immature Granulocyte Percent A 0.3 % (0-0.5); Lymphocytes Absolute Auto 2.52 K/mm3 (0.9-3.2); Lymphocytes Percent Auto 15.8 % (18.3-44.2); Mean Corpuscular HGB Conc 34.2 g/dl (32-36); Mean Corpuscular Volume 87.6 fl (80-100); Mean Platelet Volume 9.7 fl (7.4-10.4); Monocytes Percent Auto 6.1 % (2.6-8.5); Neutrophils Absolute Auto 11.9 K/mm3 (1.3-6.7); Neutrophils Percent Auto 74.9 % (45.5-73.1); Platelet Count Result 241 k/mm3 (150-375); Red Blood Count 4.84 M/mm3 (4.6-6.20); Red Cell Distribution Width 13.8 % (11.5-14.5); White Blood Count 15.9 K/mm3 (4.5-10.0)
--- NOTE | 2023-06-06 14:17 | PC.NURSE ---
pt unable to urinate at this time. IV fluids ordered and pt requested to let them infuse more before straight cath. pt educated about using call light with any urge to urinate
[2023-06-06 14:23] LABS: Alanine Aminotransferase 22 U/L (6-50); Albumin Level 3.9 g/dL (3.5-5.1); Alkaline Phosphatase 67 U/L (38-126); Anion Gap 6 mmol/L (8-16); Aspartate Amino Transferase 29 U/L (17-59); Bilirubin,Total 0.9 mg/dL (0.2-1.3); Blood Urea Nitrogen 24 mg/dL (9-20); Carbon Dioxide 28 mmol/L (22-30); Chloride 102 mmol/L (98-107); Creatine Kinase 24 U/L (55-170); Estimated CRCL calculation 57 ml/min; Estimated Glomerular Filt Rate > 60; Glucose 147 mg/dL (65-110); Potassium 3.9 mmol/L (3.4-5.0); Sodium 136 mmol/L (137-145)
[2023-06-06 15:15] LABS: Appearance Urine Clear (Clear); Bilirubin Urine Negative (Negative); Blood Urine Negative (Negative); Color Urine Yellow (Yellow); Glucose Urine UA Negative (Negative); Ketones Urine Negative (Negative); Leukocyte Esterase Ur Negative LEU/UL (Negative); Nitrate Urine Negative (Negative); Protein Urine Negative (Negative); Specific Grav Ur 1.021 (1.001-1.035); pH Urine 6.5 (5.0-9.0)
[2023-06-06 15:28] LABS: Add Urine Microscopic? NO
--- NOTE | 2023-06-06 18:25 | ADMGEN ---
This patient, Kun Borjas, was admitted to [facility] Surg Room 322-02. Patient/family oriented to hospital policies and general routines including ID bracelet, bed and alarms, visiting hours, pain management, procedures, bathroom and other care routines, personal items, smoking policy, room service/diet, and visiting hours. Information on how to activate the Rapid Response Team has been discussed. Patient/Family are encouraged to report perceived risks to care and to ask questions if they do not understand what they are told or what they should do.
--- NOTE | 2023-06-06 18:34 | PCCCNOTE ---
CC called to the ED for possible placement in a acute rehab. REA will check on pt tomorrow, he had IV pain medication, which has to be 24 hours without IV pain medication.
[2023-06-06] MEDS: CYCLOBENZAPRINE HCL 5 MG TABLET PO (19:58)
--- NOTE | 2023-06-06 22:57 | PM.IMHP ---
H&P: HPI History of Present Illness Date/Time: 06/06/23 18:00 Chief Complaint: Back pain. Narrative: This is an 78-year-old male with chronic back pain, hypertension, hyperlipidemia, and coronary artery disease who presented to the emergency department via EMS from home for evaluation of worsening back pain. The patient provides the following history and his provides additional information with his permission. He has chronic back pain which has been worse over the past couple of months. He follows with Pain Management had a couple of injections done weeks ago which have not helped his symptoms. He has been on a prednisone taper and has prescriptions for hydrocodone, gabapentin, and cyclobenzaprine which seemed to help for only brief periods of time. According to his , he has essentially been bed-bound for the last 3 weeks and cries out in excruciating pain with minimal movement. It is sharp and shooting and radiates down his left leg. His doctor advised him to come to the ER today for pain control and further evaluation. He has not had any recent falls or injuries that he can recall which may have exacerbated his symptoms. He denies saddle anesthesia, urinary retention, bowel incontinence, paresthesias, and change in lower extremity strength. Lumbar spine CT did not seem to suggest any new or acute process. He received a dose of IV hydromorphone which helped his pain however caused him to be confused and he was actually able to get himself up to the side of the bed as he was trying to walk due to disorientation. He is being admitted in this setting for pain control and PT/OT consultation as well as possible rehab placement. Review of Systems Review of Systems: Twelve systems were reviewed. No fever, chills, or sweats. Denies vertigo. No focal weakness. No falls. No recent cold or flu symptoms. He denies chest pain shortness a breath. No nausea, vomiting, diarrhea, or dysuria. Except as documented, all other systems were reviewed and are negative. COUNTS INCLUDE 234 BEDS AT THE [facility] Past Medical History Medical History (Updated 06/06/23 @ 23:07 by Grace Deshpande PA-C) Chronic obstructive pulmonary disease Complete heart block Status post pacemaker placement Coronary artery disease Nonobstructive coronary artery disease with 50% stenosis of the LAD and 40% stenosis of the RCA on cardiac catheterization December 2016. Depression Gastroesophageal reflux disease Hyperlipidemia Hypertension Macular degeneration Pacemaker Pulmonary embolism Surgical History Surgical History History of appendectomy History of cardiac catheterization December 2016 Dr. Serrano History of colonoscopy History of lumbar fusion L3-4 5 in S1 History of repair of left rotator cuff Family History Family History Mother Left bundle branch block Sibling Coronary artery disease Sister Father Cerebrovascular accident Social History Social History (Updated 06/06/23 @ 23:04 by Grace Deshpande PA-C) Social History: Surrogate medical decision maker: Gitaval sabillon, spouse. Code status: Full code. Smoking status: Never smoker Alcohol intake: never Substance use: never Substance use type: does not use Do You Feel Safe in your Home?: Yes Lack of Transportation: No Lack of Food: Never True Current Housing: I Have Housing Concerned About Future Housing: No Difficulty Paying Gas/Electric Bills: No Difficulty Paying for Meds: No Currently Unemployed: No Education: Decline to Answer Difficulty w/ Childcare or Family Care: No Living arrangements: with family Additional living arrangements comments: He lives with his of nearly 60 years. 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 Spiritual care concerns: No Agree to blood products: Yes Meds Home Medications and Al
[2023-06-07] MEDS: HYDROcodone/acetaminophen (*CRX) 5-325 MG TABLET 1 TAB PO ×3 (05:14→21:32)
[2023-06-07 06:00] VITALS: BP 134/56; PULSE 89; RESP 20; TEMP 37.2; O2SAT 94
[2023-06-07 07:02] LABS: Hematocrit 44.9 % (42.0-52.0); Hemoglobin 14.3 g/dL (14.0-18.0); Mean Corpuscular HGB Conc 31.8 g/dl (32-36); Mean Corpuscular Hemoglobin 29.5 pg (26-34); Mean Corpuscular Volume 92.8 fl (80-100); Platelet Count Result 230 k/mm3 (150-375); Red Blood Count 4.84 M/mm3 (4.6-6.20); Red Cell Distribution Width 13.6 % (11.5-14.5); White Blood Count 12.1 K/mm3 (4.5-10.0)
[2023-06-07 07:59] LABS: Anion Gap 9 mmol/L (8-16); Blood Urea Nitrogen 23 mg/dL (9-20); Calcium 9.2 mg/dL (8.4-10.2); Carbon Dioxide 22 mmol/L (22-30); Chloride 103 mmol/L (98-107); Estimated CRCL calculation 57 ml/min; Estimated Glomerular Filt Rate > 60; Glucose 120 mg/dL (65-110); Magnesium 1.9 mg/dL (1.6-2.3); Potassium 4.2 mmol/L (3.4-5.0); Sodium 134 mmol/L (137-145)
--- NOTE | 2023-06-07 08:04 | PM.IMPN ---
Progress Note: A&P Assessment and Plan (1) Acute exacerbation of chronic low back pain: Code(s): M54.50 - Low back pain, unspecified; G89.29 - Other chronic pain Status: Acute Assessment and Plan: Pain began 3 weeks ago and patient describes it as a sharp shooting pain radiating from his back down his left leg. Patient remains in supine position as this is the only position in which he is comfortable. He states that with slight movement he is in pain. He follows Dr. Lopez in pain management who did injections on May 23 and with no relief. He takes hydrocodone, gabapentin and cyclobenzaprine at home which seems to help for short periods of time. CT lumbar spine revealed moderate lumbar spondylosis with superimposed osteophytes at multiple levels consistent with diffuse idiopathic skeletal hyperostosis. MRI is unable to be done due to patients pacemaker. Neurosurgery consulted Analgesics (2) Leukocytosis: Code(s): D72.829 - Elevated white blood cell count, unspecified Status: Acute Assessment and Plan: WBC remains slightly elevated but is downtrending. No history suggesting infection. Continue to monitor WBC (3) Chronic obstructive pulmonary disease: Code(s): J44.9 - Chronic obstructive pulmonary disease, unspecified Status: Acute Assessment and Plan: Patient is in no acute COPD exacerbation at this time. (4) Hypertension: Code(s): I10 - Essential (primary) hypertension Status: Acute Assessment and Plan: Blood pressure remains slightly elevated likely due to ongoing pain. Will continue home medications at this time. metoprolol 50 mg daily Time Spent With Patient Time with patient: 25 - 35 minutes Subjective Date/time seen: 06/07/23 08:04 Interval history: 78-year-old male with chronic back pain s/p lumbar fusion L3-S1, hypertension, hyperlipidemia, and coronary artery disease who presented to the emergency department via EMS from home for evaluation of worsening back pain.?He was admitted for further pain management and PT/OT consultation for possible rehab placement. Patient is pleasant lying supine in bed. He states that supine is the only position he finds comfortable and with any slight movement he becomes in excruciating pain. This pain began 3 weeks ago and since then patient has been primarily bed bound. He describes the pain as a sharp shooting pain radiating from his back down his left leg. He notes that the right is sometimes impacted but more so the left. He follows Dr. Lopez in pain management who did injections on May 23 and with no relief. He takes hydrocodone, gabapentin and cyclobenzaprine at home which seems to help for short periods of time. He states he urinated yesterday and had a bladder scan done which revealed around 400 ml left in his bladder. He was then able to void entirely. He denies shortness of breath, chest pain, saddle anesthesia, changes in bowel, and changes in strength. Review of Systems Review of Systems: All systems reviewed & are unremarkable except as noted in HPI and below Exam Narrative: AF HR 93 RR 20 SpO2 95 BP 142/65 General: well nourished, well-developed male in no acute respiratory distress who is nontoxic appearing, lying semi recumbent in bed. HEENT: Normocephalic. Atraumatic. Pupils equal round reactive to light. Extraocular movement intact. Sclera clear and anicteric. No facial asymmetry. Chest: Lungs are clear to auscultation bilaterally. No wheezes or crackles. CV: Heart was regular rate and rhythm. S1/S2. No murmurs, gallops, or rubs. Abd: Abdomen was soft. Nontender. Nondistended. Positive bowel sounds. No organomegaly or masses. Ext: No clubbing, cyanosis, or edema. 2+ DP pulses bilaterally. Neuro: Patient is alert and oriented x4. Strength is 5/5 in both upper and lower extremities. Speech is clear. Psych: Normal mood and affect. Patient is pleasant and cooperative. Skin: Warm and
[2023-06-07 08:19] LABS: Procalcitonin 0.1 ng/mL
[2023-06-07] MEDS: OPTI-GEN TAB 1 TABLET PO ×2 (08:47→16:57)
[2023-06-07] MEDS: ENOXAPARIN 40 MG/0.4 ML SYRINGE SUB-Q (08:47)
[2023-06-07] MEDS: ASPIRIN 81 MG ENTERIC TABLET PO (08:48)
[2023-06-07] MEDS: PANTOPRAZOLE 40 MG TABLET PO (08:48)
[2023-06-07] MEDS: CHOLECALCIFEROL 1,000 UNITS TABLET 1000 UNITS PO (08:48)
[2023-06-07] MEDS: ONDANSETRON HCL ODT 4 MG TABLET PO (11:57)
[2023-06-07] MEDS: diazePAM (*CRX) 5 MG TABLET PO (12:02)
[2023-06-07 13:41] VITALS: BP 142/65; PULSE 93; RESP 20; TEMP 37.1; O2SAT 95
--- NOTE | 2023-06-07 15:29 | PCOTNOTE ---
Attempted to see pt. for occupational therapy evaluation. Pt. reports he is in too much pain at this time to participate and would like to wait until seeing neurosurgery for consultation, prior to OT services. Nursing aware. Following
[2023-06-07] MEDS: FENOFIBRATE 160 MG TABLET PO (16:57)
[2023-06-07 16:59] VITALS: PULSE 102
[2023-06-07] MEDS: METOPROLOL SUCCINATE EXT REL 50 MG TABCR PO (16:59)
--- NOTE | 2023-06-07 17:18 | WPDNEURCNPN ---
Assessment and Plan Assessment and plan (1) Acute exacerbation of chronic low back pain: Code(s): M54.50 - Low back pain, unspecified; G89.29 - Other chronic pain Status: Acute Assessment and Plan: Patient is a pleasant 78-year-old male who presented to the ER due to the inability to ambulate and being bed ridden for the last several weeks due to back pain and radiating left leg symptoms. He describes his leg discomfort and an L5 distribution radiating laterally down the left leg and into the dorsum of the foot and around the ankle region. On exam he is neurologically intact without any focal findings. The patient's CT lumbar study shows postoperative changes at L3-4, L5-S1 with moderate central stenosis at L4-5 and moderate left neural foraminal stenosis at this level as well. At this point in time it is hard to say if this level is causing his symptoms. We recommend better imaging of the lumbar spine in the form of a lumbar MRI versus CT myelogram. Patient is unsure if his pacemaker is MRI compatible, I told him even if it was he would have to have an MRI as an outpatient at a larger facility with pacemaker rep present. The patient tells me is very against having a CT myelogram as he has had 2 of them over 20 years ago with what sounds like spinal headaches that required further hospitalization. I did tell him his exam is reassuring since he is neurologically intact. Perhaps we can get his pain controlled with medications and even short course of steroids and then decide if we need to proceed further more detailed spinal imaging. Is his pacemaker MRI compatible? We will continue to follow Consult date: 06/07/23 Reason for consult: Back pain, left leg symptoms HPI: Kun Borjas is a 78 year old male with past surgical history for lumbar surgery x 2, he believes at L3-4 and later at L5-S1 both done at [facility] in [place] in early ' and . He presented to the emergency room via EMS after reportedly being bed ridden for the last 26 days due to his back and left leg pain. He states most of his discomfort is in the left upper buttock region with radiation along the lateral aspect of his left leg and into the ankle region and top of his foot. He states he's had this discomfort on and off in the years past and has been working with Dr. Meyer with Pain management. Injections in the past year have helped however he had an injection on May 23 and then again on the , targeting he believes L5-S1 and possibly L3-4. He states these injections did not give him any relief at any point. He states bearing any weight on this leg causes significant pain and he states it does feel like ?nerve pain?. He reports having discomfort when lying in bed and turning on to his sides. He denies any focal weakness, no numbness or tingling, no right leg symptoms, no bladder bowel dysfunction but he is having difficulty urinating while lying in bed. He states he does feel like he is emptying his bladder fully. The patient had a CT lumbar study done on this admission. Patient has a pacemaker that was implanted at least 6 years ago , he is unsure if this is MRI compatible or not. Review of Systems Review of Systems: All systems reviewed & are unremarkable except as noted in HPI and below PMFSH Past Medical History Medical History (Updated 06/06/23 @ 23:07 by Grace Deshpande PA-C) Chronic obstructive pulmonary disease Complete heart block Status post pacemaker placement Coronary artery disease Nonobstructive coronary artery disease with 50% stenosis of the LAD and 40% stenosis of the RCA on cardiac catheterization December 2016. Depression Gastroesophageal reflux disease Hyperlipidemia Hypertension Macular degeneration Pacemaker Pulmonary embolism Surgical History Surgical History History of appendectomy History of cardiac catheterization December [address] Dr. Becerril
[2023-06-07 19:47] VITALS: PULSE 102; RESP 20; O2SAT 95
[2023-06-07 21:49] VITALS: BP 133/82; PULSE 77; RESP 18; TEMP 36.4; O2SAT 98
[2023-06-08] MEDS: HYDROcodone/acetaminophen (*CRX) 5-325 MG TABLET 1 TAB PO ×2 (05:04→13:16)
[2023-06-08 05:23] VITALS: BP 138/73; PULSE 90; RESP 20; TEMP 36.7; O2SAT 98
--- NOTE | 2023-06-08 08:04 | PM.IMPN ---
Progress Note: A&P Assessment and Plan (1) Acute exacerbation of chronic low back pain: Code(s): M54.50 - Low back pain, unspecified; G89.29 - Other chronic pain Status: Acute Assessment and Plan: Pain began 3 weeks ago and patient describes it as a sharp shooting pain radiating from his back down his left leg. Patient remains in supine position as this is the only position in which he is comfortable. He states that with slight movement he is in pain. He follows Dr. Lopez in pain management who did injections on May 23 and with no relief. He takes hydrocodone, gabapentin and cyclobenzaprine at home which seems to help for short periods of time. CT lumbar spine revealed moderate lumbar spondylosis with superimposed osteophytes at multiple levels consistent with diffuse idiopathic skeletal hyperostosis (DISH). MRI is unable to be done due to patients pacemaker. Neurosurgery examined patient and recommend better imaging of the lumbar spine with a lumbar MRI vs CT myelogram. Patient is against CT myelogram due to history of spinal headaches. Per neurosurgery will try to get pain better controlled with medications then decide if further spinal imaging is needed. Tylenol 650mg PO q6 PRN Cyclobenzaprine 5 mg PO q8 [place] 1 tab q8 PO PRN (home medication) Ibuprofen 800 mg PO q8 Dexamethasone 6 mg IV q6 (2) Leukocytosis: Code(s): D72.829 - Elevated white blood cell count, unspecified Status: Acute Assessment and Plan: WBC remains slightly elevated but is downtrending. No history suggesting infection. Likely related to fracture. Continue to monitor WBC (3) Chronic obstructive pulmonary disease: Code(s): J44.9 - Chronic obstructive pulmonary disease, unspecified Status: Acute Assessment and Plan: Patient is in no acute COPD exacerbation at this time. (4) Hypertension: Code(s): I10 - Essential (primary) hypertension Status: Acute Assessment and Plan: Blood pressure remains slightly elevated likely due to ongoing pain. Will continue home medications at this time. metoprolol 50 mg daily Time Spent With Patient Time with patient: 25 - 35 minutes Subjective Date/time seen: 06/08/23 08:04 Interval history: 78-year-old male with chronic back pain s/p lumbar fusion L3-S1, hypertension, hyperlipidemia, and coronary artery disease who presented to the emergency department via EMS from home for evaluation of worsening back pain.?He was admitted for further pain management and PT/OT consultation for possible rehab placement. Patient is tearful lying supine in bed with family at bedside. He continues to be in pain rating it a 6-7/10. He describes the pain as a shooting sensation going down the back of his left leg to his ankle. He was seen by PT today and ambulated to chair causing his pain to become a 9. Per PT note the patient was anxious grimace and guarding during their visit. He then refused OT services. Discussed with the patient that the goal is better pain control while he is inpatient. His exam remains reassuring because he is neurologically intact. Neurology plans to follow up with him outpatient for better imaging of the lumbar spine. He states that he had a CT myelogram in the past which caused him severe spinal headaches where he was hospitalized for several days. He prefers to have an MRI done outpatient. Patient states that for the last two nights he has awoken confused and attempted to get out of bed but was unable to due to pain. He states that he can eventually settle down and reorients himself to his location. Review of Systems Review of Systems: All systems reviewed & are unremarkable except as noted in HPI and below Exam Narrative: AF HR 95 RR 20 SpO2 93 BP 133/75 General: well nourished, well-developed male in no acute respiratory distress who is nontoxic appearing, lying supine in bed. HEENT: Normocephalic. Atraumatic. Pupils equal round reactiv
[2023-06-08] MEDS: ENOXAPARIN 40 MG/0.4 ML SYRINGE SUB-Q (08:46)
[2023-06-08] MEDS: PANTOPRAZOLE 40 MG TABLET PO (08:46)
[2023-06-08] MEDS: ACETAMINOPHEN 325 MG TABLET 650 MG PO (08:46)
[2023-06-08] MEDS: OPTI-GEN TAB 1 TABLET PO ×2 (08:47→17:12)
[2023-06-08] MEDS: CHOLECALCIFEROL 1,000 UNITS TABLET 1000 UNITS PO (08:47)
[2023-06-08] MEDS: ASPIRIN 81 MG ENTERIC TABLET PO (08:47)
[2023-06-08 09:08] VITALS: O2SAT 94
[2023-06-08] MEDS: dexAMETHasone SOD PHOS INJ 10 MG/ML 1 ML VIAL IV PUSH (09:55)
[2023-06-08] MEDS: polyethylene glycoL 3350 17 GM POWD.PACK PO (09:55)
[2023-06-08] MEDS: ONDANSETRON HCL ODT 4 MG TABLET PO (10:01)
[2023-06-08 10:02] LABS: Hematocrit 42.7 % (42.0-52.0); Hemoglobin 14.2 g/dL (14.0-18.0); Mean Corpuscular HGB Conc 33.3 g/dl (32-36); Mean Corpuscular Hemoglobin 29.6 pg (26-34); Mean Platelet Volume 9.8 fl (7.4-10.4); Platelet Count Result 251 k/mm3 (150-375); Red Cell Distribution Width 13.4 % (11.5-14.5); White Blood Count 10.8 K/mm3 (4.5-10.0)
[2023-06-08 10:12] LABS: Anion Gap 4 mmol/L (8-16); Blood Urea Nitrogen 20 mg/dL (9-20); Calcium 9.4 mg/dL (8.4-10.2); Carbon Dioxide 31 mmol/L (22-30); Chloride 101 mmol/L (98-107); Estimated CRCL calculation 57 ml/min; Estimated Glomerular Filt Rate > 60; Glucose 182 mg/dL (65-110); Potassium 3.8 mmol/L (3.4-5.0); Sodium 136 mmol/L (137-145)
[2023-06-08] MEDS: CYCLOBENZAPRINE HCL 5 MG TABLET PO ×2 (13:16→21:15)
[2023-06-08 13:48] VITALS: BP 133/72; PULSE 95; RESP 20; TEMP 36.7; O2SAT 93
[2023-06-08] MEDS: IBUPROFEN 400 MG TABLET 800 MG PO (17:11)
[2023-06-08] MEDS: dexAMETHasone SOD PHOS INJ 10 MG/ML 1 ML VIAL 6 MG IV PUSH (17:12)
[2023-06-08] MEDS: METOPROLOL SUCCINATE EXT REL 50 MG TABCR PO (17:12)
[2023-06-08] MEDS: FENOFIBRATE 160 MG TABLET PO (17:12)
[2023-06-08 21:13] VITALS: BP 137/78; PULSE 88; RESP 13; TEMP 36.6; O2SAT 95
[2023-06-09] MEDS: dexAMETHasone SOD PHOS INJ 10 MG/ML 1 ML VIAL 6 MG IV PUSH ×4 (00:20→20:38)
[2023-06-09] MEDS: IBUPROFEN 400 MG TABLET 800 MG PO ×3 (00:20→17:57)
[2023-06-09] MEDS: CYCLOBENZAPRINE HCL 5 MG TABLET PO ×3 (05:56→21:06)
[2023-06-09 06:00] VITALS: BP 135/70; PULSE 90; RESP 12; TEMP 37.1; O2SAT 92
[2023-06-09 08:41] LABS: Hematocrit 45.9 % (42.0-52.0); Hemoglobin 14.4 g/dL (14.0-18.0); Mean Corpuscular HGB Conc 31.4 g/dl (32-36); Mean Corpuscular Hemoglobin 29.9 pg (26-34); Mean Corpuscular Volume 95.2 fl (80-100); Mean Platelet Volume 10.4 fl (7.4-10.4); Platelet Count Result 271 k/mm3 (150-375); Red Blood Count 4.82 M/mm3 (4.6-6.20); Red Cell Distribution Width 13.2 % (11.5-14.5); White Blood Count 11.8 K/mm3 (4.5-10.0)
[2023-06-09 08:55] LABS: Anion Gap 8 mmol/L (8-16); Blood Urea Nitrogen 28 mg/dL (9-20); Calcium 9.7 mg/dL (8.4-10.2); Carbon Dioxide 24 mmol/L (22-30); Chloride 102 mmol/L (98-107); Estimated CRCL calculation 57 ml/min; Estimated Glomerular Filt Rate > 60; Glucose 163 mg/dL (65-110); Potassium 4.1 mmol/L (3.4-5.0); Sodium 134 mmol/L (137-145)
--- NOTE | 2023-06-09 10:11 | ECG_ITS ---
Measurements Intervals [place] Rate: 98 P: 41 IA: 208 QRS: -70 QRSD: 167 T: 81 QT: 407 QTc: 520 Interpretive Statements ATRIAL SENSE- ELECTRONIC VENTRICULAR PACEMAKER NO FURTHER INTERPRETATION IS POSSIBLE ATYPICAL ECG COMPARED TO ECG 06/06/2023 12:09:16 NO SIGNIFICANT CHANGES Electronically Signed On 06-09-2023 11:21:25 CDT by Martell Reyes D.O.
[2023-06-09] MEDS: PANTOPRAZOLE 40 MG TABLET PO (10:20)
[2023-06-09] MEDS: CHOLECALCIFEROL 1,000 UNITS TABLET 1000 UNITS PO (10:20)
[2023-06-09] MEDS: MAGNESIUM 27 MG TABLET (500 MG MAG GLUCONATE) PO (10:21)
[2023-06-09] MEDS: ASPIRIN 81 MG ENTERIC TABLET PO (10:21)
[2023-06-09] MEDS: OPTI-GEN TAB 1 TABLET PO ×2 (10:21→17:57)
[2023-06-09] MEDS: ENOXAPARIN 40 MG/0.4 ML SYRINGE SUB-Q (10:26)
--- NOTE | 2023-06-09 10:29 | PM.IMPN ---
Progress Note: A&P Assessment and Plan (1) Acute exacerbation of chronic low back pain: Code(s): M54.50 - Low back pain, unspecified; G89.29 - Other chronic pain Status: Acute Assessment and Plan: Pain began 3 weeks ago and patient describes it as a sharp shooting pain radiating from his back down his left leg. He follows Dr. Lopez in pain management who did injections on May 23 and with no relief. He takes hydrocodone, gabapentin and cyclobenzaprine at home which seems to help for short periods of time. CT lumbar spine revealed moderate lumbar spondylosis with superimposed osteophytes at multiple levels consistent with diffuse idiopathic skeletal hyperostosis (DISH). MRI is unable to be done due to patients pacemaker. Neurosurgery examined patient and recommend better imaging of the lumbar spine with a lumbar MRI vs CT myelogram. Patient is against CT myelogram due to history of spinal headaches. Per neurosurgery will try to get pain better controlled with medications then decide if further spinal imaging is needed outpatient. Tylenol 650mg PO q6 PRN Cyclobenzaprine 5 mg PO q8 [place] 1 tab q8 PO PRN (home medication) Ibuprofen 800 mg PO q8 Dexamethasone 6 mg IV q6 Lyrica 75mg q12 Continue PT/OT (2) Acute delirium: Code(s): R41.0 - Disorientation, unspecified Status: Acute Assessment and Plan: Since hospital admission patient notes waking at night scared and confused due to not knowing where he is. He states that since the room is dark at night it takes him several minutes to readjust to his environment. Continue periods of wakefulness during the day Limit awakenings overnight (3) Leukocytosis: Code(s): D72.829 - Elevated white blood cell count, unspecified Status: Acute Assessment and Plan: WBC remains slightly elevated. No history suggesting infection. Likely related to fracture. Continue to monitor WBC (4) Chronic obstructive pulmonary disease: Code(s): J44.9 - Chronic obstructive pulmonary disease, unspecified Status: Acute Assessment and Plan: Patient is in no acute COPD exacerbation at this time. (5) Hypertension: Code(s): I10 - Essential (primary) hypertension Status: Acute Assessment and Plan: Blood pressure remains slightly elevated likely due to ongoing pain. Will continue home medications at this time. metoprolol 50 mg daily Time Spent With Patient Time with patient: Greater than 35 minutes Subjective Date/time seen: 06/09/23 10:29 Interval history: 78-year-old male with chronic back pain s/p lumbar fusion L3-S1, hypertension, hyperlipidemia, and coronary artery disease who presented to the emergency department via EMS from home for evaluation of worsening back pain.?He was admitted for further pain management and PT/OT consultation for possible rehab placement. Patient continues to endorse pain with movements that send shooting pain down his left leg. He endorses right sided chest pain that is reproducible with movement and palpation, likely musculoskeletal due to continued use of the right arm to pull himself up in bed. EKG was normal. He remains on Dexamethasone, [place], Ibuprofen, and was started on Lyrica for pain. He rates his pain a 5 while lying semi Recumbant in bed. He notes that he was able to sit up in bed today following the administration of the dexamethasone. PT evaluated patient and he was able to ambulate with minimal assistance and readjust himself in bed once lower extremities were positioned in bed. Since hospital admission patient notes waking at night scared and confused due to not knowing where he is. He states that since the room is dark at night it takes him several minutes to readjust to his environment. Discussed with family at length that the patient remains in the hospital for pain management. Neurosurgery plans to follow the patient outpatient once pain is better controlled for [place]
[2023-06-09 14:00] VITALS: BP 129/67; PULSE 100; RESP 14; TEMP 37.2; O2SAT 94
[2023-06-09 17:56] VITALS: PULSE 100
[2023-06-09] MEDS: METOPROLOL SUCCINATE EXT REL 50 MG TABCR PO (17:56)
[2023-06-09] MEDS: FENOFIBRATE 160 MG TABLET PO (17:57)
[2023-06-09] MEDS: PREGABALIN (*CRX) 75 MG CAPSULE PO (20:38)
[2023-06-09 21:33] VITALS: BP 135/73; PULSE 90; RESP 13; TEMP 36.3; O2SAT 94
[2023-06-10] MEDS: IBUPROFEN 400 MG TABLET 800 MG PO ×3 (01:59→17:37)
[2023-06-10] MEDS: dexAMETHasone SOD PHOS INJ 10 MG/ML 1 ML VIAL 6 MG IV PUSH ×4 (01:59→20:46)
[2023-06-10] MEDS: CYCLOBENZAPRINE HCL 5 MG TABLET PO ×3 (05:25→20:47)
[2023-06-10 05:54] VITALS: BP 135/66; PULSE 89; RESP 13; TEMP 37.1; O2SAT 95
[2023-06-10 06:50] LABS: Hematocrit 42.4 % (42.0-52.0); Hemoglobin 15.1 g/dL (14.0-18.0); Mean Corpuscular HGB Conc 35.6 g/dl (32-36); Mean Corpuscular Hemoglobin 31.1 pg (26-34); Mean Corpuscular Volume 87.4 fl (80-100); Mean Platelet Volume 10.5 fl (7.4-10.4); Platelet Count Result 331 k/mm3 (150-375); Red Blood Count 4.85 M/mm3 (4.6-6.20); Red Cell Distribution Width 13.3 % (11.5-14.5); White Blood Count 14.8 K/mm3 (4.5-10.0)
[2023-06-10 07:02] LABS: Anion Gap 5 mmol/L (8-16); Blood Urea Nitrogen 34 mg/dL (9-20); Calcium 9.6 mg/dL (8.4-10.2); Carbon Dioxide 29 mmol/L (22-30); Chloride 103 mmol/L (98-107); Estimated CRCL calculation 44 ml/min; Estimated Glomerular Filt Rate 58; Glucose 193 mg/dL (65-110); Potassium 3.9 mmol/L (3.4-5.0); Sodium 137 mmol/L (137-145)
[2023-06-10] MEDS: OPTI-GEN TAB 1 TABLET PO ×2 (08:58→17:38)
[2023-06-10] MEDS: PREGABALIN (*CRX) 75 MG CAPSULE PO ×2 (08:58→20:47)
[2023-06-10] MEDS: ASPIRIN 81 MG ENTERIC TABLET PO (08:58)
[2023-06-10] MEDS: PANTOPRAZOLE 40 MG TABLET PO (08:58)
[2023-06-10] MEDS: ENOXAPARIN 40 MG/0.4 ML SYRINGE SUB-Q (08:58)
[2023-06-10] MEDS: MAGNESIUM 27 MG TABLET (500 MG MAG GLUCONATE) PO (08:58)
[2023-06-10] MEDS: CHOLECALCIFEROL 1,000 UNITS TABLET 1000 UNITS PO (08:58)
[2023-06-10] MEDS: polyethylene glycoL 3350 17 GM POWD.PACK PO (09:01)
[2023-06-10 14:00] VITALS: BP 154/72; PULSE 99; RESP 18; TEMP 36.3; O2SAT 96
--- NOTE | 2023-06-10 15:29 | PM.IMPN ---
Progress Note: A&P Assessment and Plan (1) Acute exacerbation of chronic low back pain: Code(s): M54.50 - Low back pain, unspecified; G89.29 - Other chronic pain Status: Acute Assessment and Plan: Pain began 3 weeks ago and patient describes it as a sharp shooting pain radiating from his back down his left leg. He follows Dr. Lopez in pain management who did injections on May 23 and with no relief. He takes hydrocodone, gabapentin and cyclobenzaprine at home which seems to help for short periods of time. CT lumbar spine revealed moderate lumbar spondylosis with superimposed osteophytes at multiple levels consistent with diffuse idiopathic skeletal hyperostosis (DISH). MRI is unable to be done due to patients pacemaker. Neurosurgery examined patient and recommend better imaging of the lumbar spine with a lumbar MRI vs CT myelogram. Patient is against CT myelogram due to history of spinal headaches. Per neurosurgery will try to get pain better controlled with medications then decide if further spinal imaging is needed outpatient. Patient states he is doing pretty good and rates his pain a 4-5/10. He remains agreeable to going to a SNF for further PT/OT while he waits for further imaging outpatient. Tylenol 650mg PO q6 PRN Cyclobenzaprine 5 mg PO q8 [place] 1 tab q8 PO PRN (home medication) - last given 06/07 Ibuprofen 800 mg PO q8 Dexamethasone 6 mg IV q6 Lyrica 75mg q12 Continue PT/OT (2) Acute delirium: Code(s): R41.0 - Disorientation, unspecified Status: Acute Assessment and Plan: Since hospital admission patient notes waking at night scared and confused due to not knowing where he is. He states that since the room is dark at night it takes him several minutes to readjust to his environment. Last night he was increasingly confused and told RN he thought he was being kidnapped. The delirium is likely related to current inpatient hospitalization rather than medication induced due to his last dose of [place] being several days ago. Continue periods of wakefulness during the day Limit awakenings overnight (3) Leukocytosis: Code(s): D72.829 - Elevated white blood cell count, unspecified Status: Acute Assessment and Plan: WBC remains slightly elevated. No history suggesting infection. Likely related to fracture and current steroids. Continue to monitor WBC (4) Chronic obstructive pulmonary disease: Code(s): J44.9 - Chronic obstructive pulmonary disease, unspecified Status: Acute Assessment and Plan: Patient is in no acute COPD exacerbation at this time. (5) Hypertension: Code(s): I10 - Essential (primary) hypertension Status: Acute Assessment and Plan: Blood pressure remains stable. Will continue home medications at this time. metoprolol 50 mg daily Time Spent With Patient Time with patient: 25 - 35 minutes Subjective Date/time seen: 06/10/23 15:29 Interval history: 78-year-old male with chronic back pain s/p lumbar fusion L3-S1, hypertension, hyperlipidemia, and coronary artery disease who presented to the emergency department via EMS from home for evaluation of worsening back pain.?He was admitted for further pain management and PT/OT consultation for possible rehab placement. Patient states that he is doing pretty good. He is lying in bed in a semi recumbent position and states his pain is a 4-5. He continues to have pain with movement but has been able to ambulate with minimal assistance when working with PT. Spoke with patients nurse and she states that he has not needed his [place] for several days. Last time norco was given was 06/07. Patient also told RN that he had severe confusion last night where he thought he was kidnapped while in the hospital and taken to the dialysis unit. Patient is likely experiencing hospital delerium. He continues to have reproducible right sided chest pain that is further exacerbated with movement of
[2023-06-10] MEDS: FENOFIBRATE 160 MG TABLET PO (17:37)
[2023-06-10 17:38] VITALS: PULSE 99
[2023-06-10] MEDS: METOPROLOL SUCCINATE EXT REL 50 MG TABCR PO (17:38)
[2023-06-10 22:00] VITALS: BP 126/59; PULSE 76; RESP 18; TEMP 36.9; O2SAT 96
[2023-06-11] MEDS: dexAMETHasone SOD PHOS INJ 10 MG/ML 1 ML VIAL 6 MG IV PUSH ×4 (01:48→20:49)
[2023-06-11] MEDS: IBUPROFEN 400 MG TABLET 800 MG PO ×2 (01:48→08:25)
[2023-06-11] MEDS: CYCLOBENZAPRINE HCL 5 MG TABLET PO (05:45)
[2023-06-11] MEDS: ACETAMINOPHEN 325 MG TABLET 650 MG PO ×2 (05:45→15:05)
[2023-06-11 06:00] VITALS: BP 137/61; PULSE 78; RESP 18; TEMP 37; O2SAT 97
--- NOTE | 2023-06-11 07:26 | PM.IMPN ---
Progress Note: A&P Assessment and Plan (1) Acute exacerbation of chronic low back pain: Code(s): M54.50 - Low back pain, unspecified; G89.29 - Other chronic pain Status: Acute Assessment and Plan: Pain began 3 weeks ago and patient describes it as a sharp shooting pain radiating from his back down his left leg. He follows Dr. Lopez in pain management who did injections on May 23 and with no relief. He takes hydrocodone, gabapentin and cyclobenzaprine at home which seems to help for short periods of time. CT lumbar spine revealed moderate lumbar spondylosis with superimposed osteophytes at multiple levels consistent with diffuse idiopathic skeletal hyperostosis (DISH). MRI is unable to be done due to patients pacemaker. Neurosurgery examined patient and recommend better imaging of the lumbar spine with a lumbar MRI vs CT myelogram. Patient is against CT myelogram due to history of spinal headaches. Per neurosurgery will try to get pain better controlled with medications then decide if further spinal imaging is needed outpatient. Patient is agreeable to going to a SNF for further PT/OT while he waits for further imaging outpatient. Patient rates his pain a 6-7/10 today following RN readjustment. Ibuprofen discontinued. Patient started on Celebrex. Accepted at [facility]. Waiting on SNF auth per care coordination. Tylenol 650mg PO q6 PRN Lidocaine patch Celebrex 100 mg BID [place] 1 tab q8 PO PRN (home medication) - last given 06/07 Dexamethasone 6 mg IV q6 Lyrica 75mg q12 Continue PT/OT (2) Acute delirium: Code(s): R41.0 - Disorientation, unspecified Status: Acute Assessment and Plan: Patient continues to report periods of wakefulness at night where he is fearful and does not know where he is. The delirium is likely related to current inpatient hospitalization. Continue periods of wakefulness during the day Limit awakenings overnight Discontinue cyclobenzaprine due to risk of confusion. (3) Leukocytosis: Code(s): D72.829 - Elevated white blood cell count, unspecified Status: Acute Assessment and Plan: WBC remains elevated. No history suggesting infection. Likely related to fracture and current steroids. Continue to monitor WBC (4) Chronic obstructive pulmonary disease: Code(s): J44.9 - Chronic obstructive pulmonary disease, unspecified Status: Acute Assessment and Plan: Patient is in no acute COPD exacerbation at this time. (5) Hypertension: Code(s): I10 - Essential (primary) hypertension Status: Acute Assessment and Plan: Blood pressure remains stable. Will continue home medications at this time. metoprolol 50 mg daily Time Spent With Patient Time with patient: 25 - 35 minutes Subjective Date/time seen: 06/11/23 07:26 Interval history: 78-year-old male with chronic back pain s/p lumbar fusion L3-S1, hypertension, hyperlipidemia, and coronary artery disease who presented to the emergency department via EMS from home for evaluation of worsening back pain.?He was admitted for further pain management and PT/OT consultation for possible rehab placement. Patient is tearful lying semi recumbent in bed. He states that his pain is about a 6-7/10 currently after adjustment with nursing. He reports waking last night and thinking he was in a parking garage and people were out to get him. This episode happened for about 10 minutes before patient was reoriented by nursing. Patient is very paranoid about the shift lab technician staff due to these episodes occurring at night. He denies Do to confusion will discontinue flexaril at this time. Patient started on celebrex and lidocaine patches to further assist with pain management. Review of Systems Review of Systems: All systems reviewed & are unremarkable except as noted in HPI and below Exam Narrative: AF HR 76 RR 16 SpO2 99 BP 130/54 General: male in no acute respira
[2023-06-11 07:47] LABS: Hematocrit 39.2 % (42.0-52.0); Hemoglobin 13.1 g/dL (14.0-18.0); Mean Corpuscular HGB Conc 33.4 g/dl (32-36); Mean Corpuscular Hemoglobin 29.5 pg (26-34); Mean Corpuscular Volume 88.3 fl (80-100); Platelet Count Result 294 k/mm3 (150-375); Red Blood Count 4.44 M/mm3 (4.6-6.20); Red Cell Distribution Width 13.3 % (11.5-14.5); White Blood Count 14.7 K/mm3 (4.5-10.0)
[2023-06-11 07:57] LABS: Anion Gap 5 mmol/L (8-16); Blood Urea Nitrogen 35 mg/dL (9-20); Carbon Dioxide 29 mmol/L (22-30); Chloride 101 mmol/L (98-107); Estimated CRCL calculation 52 ml/min; Estimated Glomerular Filt Rate > 60; Glucose 215 mg/dL (65-110); Potassium 4.4 mmol/L (3.4-5.0); Sodium 135 mmol/L (137-145)
[2023-06-11] MEDS: PREGABALIN (*CRX) 75 MG CAPSULE PO ×2 (08:23→20:50)
[2023-06-11] MEDS: polyethylene glycoL 3350 17 GM POWD.PACK PO (08:24)
[2023-06-11] MEDS: MAGNESIUM 27 MG TABLET (500 MG MAG GLUCONATE) PO (08:25)
[2023-06-11] MEDS: PANTOPRAZOLE 40 MG TABLET PO (08:25)
[2023-06-11] MEDS: OPTI-GEN TAB 1 TABLET PO ×2 (08:25→17:54)
[2023-06-11] MEDS: CHOLECALCIFEROL 1,000 UNITS TABLET 1000 UNITS PO (08:27)
[2023-06-11] MEDS: ENOXAPARIN 40 MG/0.4 ML SYRINGE SUB-Q (08:27)
[2023-06-11] MEDS: ASPIRIN 81 MG ENTERIC TABLET PO (08:27)
[2023-06-11 14:00] VITALS: BP 130/54; PULSE 76; RESP 16; TEMP 36.3; O2SAT 99
--- NOTE | 2023-06-11 14:53 | PC.NURSE ---
On 06/11/23, the OYSTER CULTIVATOR, Maryellen, provided care and [facility]. I have reviewed the OYSTER CULTIVATOR's documentation and agree with the findings.
[2023-06-11] MEDS: LIDOCAINE 5% PATCH 2 PATCH TRANSDERM (15:16)
[2023-06-11] MEDS: FENOFIBRATE 160 MG TABLET PO (17:55)
[2023-06-11 17:56] VITALS: PULSE 70
[2023-06-11] MEDS: METOPROLOL SUCCINATE EXT REL 50 MG TABCR PO (17:56)
[2023-06-11] MEDS: HYDROcodone/acetaminophen (*CRX) 5-325 MG TABLET 1 TAB PO (17:56)
[2023-06-11] MEDS: CELECOXIB 100 MG CAPSULE PO (18:03)
[2023-06-11 21:33] VITALS: BP 162/70; PULSE 83; RESP 20; TEMP 36.6; O2SAT 98
[2023-06-12] MEDS: dexAMETHasone SOD PHOS INJ 10 MG/ML 1 ML VIAL 6 MG IV PUSH (02:00)
[2023-06-12] MEDS: HYDROcodone/acetaminophen (*CRX) 5-325 MG TABLET 1 TAB PO (04:50)
[2023-06-12 05:41] VITALS: BP 144/73; PULSE 75; RESP 20; TEMP 37; O2SAT 98
[2023-06-12 06:36] LABS: Hematocrit 41.9 % (42.0-52.0); Hemoglobin 13.8 g/dL (14.0-18.0); Mean Corpuscular HGB Conc 32.9 g/dl (32-36); Mean Corpuscular Hemoglobin 29.9 pg (26-34); Mean Corpuscular Volume 90.7 fl (80-100); Mean Platelet Volume 10.3 fl (7.4-10.4); Platelet Count Result 292 k/mm3 (150-375); Red Blood Count 4.62 M/mm3 (4.6-6.20); Red Cell Distribution Width 13.2 % (11.5-14.5); White Blood Count 17.2 K/mm3 (4.5-10.0)
[2023-06-12 06:43] LABS: Anion Gap 7 mmol/L (8-16); Blood Urea Nitrogen 35 mg/dL (9-20); Calcium 8.8 mg/dL (8.4-10.2); Carbon Dioxide 23 mmol/L (22-30); Chloride 102 mmol/L (98-107); Estimated CRCL calculation 57 ml/min; Estimated Glomerular Filt Rate > 60; Glucose 191 mg/dL (65-110); Potassium 4.2 mmol/L (3.4-5.0); Sodium 132 mmol/L (137-145)
--- NOTE | 2023-06-12 07:13 | PM.IMPN ---
Progress Note: A&P Assessment and Plan (1) Acute exacerbation of chronic low back pain: Code(s): M54.50 - Low back pain, unspecified; G89.29 - Other chronic pain Status: Acute Assessment and Plan: Pain began 3 weeks ago and patient describes it as a sharp shooting pain radiating from his back down his left leg. He follows Dr. Lopez in pain management who did injections on May 23 and with no relief. He takes hydrocodone and cyclobenzaprine at home which seems to help for short periods of time. CT lumbar spine revealed moderate lumbar spondylosis with superimposed osteophytes at multiple levels consistent with diffuse idiopathic skeletal hyperostosis (DISH). MRI is unable to be done due to patients pacemaker. Neurosurgery examined patient and recommend better imaging of the lumbar spine with a lumbar MRI vs CT myelogram. Patient is against CT myelogram due to history of spinal headaches. Patient spoke with PCP and notes that his pacemaker is [employer]tr[employer]. Per neurosurgery will try to get pain better controlled with medications then decide if further spinal imaging is needed outpatient. Patient is agreeable to going to a SNF for further PT/OT while he waits for further imaging outpatient. Patient rates his pain a 5/10 today. Accepted at [facility]. Waiting on SNF auth per care coordination. Tylenol 650mg PO q6 PRN Lidocaine patch Celebrex 100 mg BID [place] 1 tab q8 PO PRN (home medication) Prednisone taper (60 mg x3 days, then 50 mg x 3 days, then 40 mg x 3 days, then 30 mg x 3 days, then 20 mg x 3 days, then 10 mg x 3 days, then stop). Lyrica 75mg q12 Continue PT/OT (2) Acute delirium: Code(s): R41.0 - Disorientation, unspecified Status: Acute Assessment and Plan: Patient continues to report periods of wakefulness at night where he is fearful and does not know where he is. The delirium is likely related to current inpatient hospitalization. Continue periods of wakefulness during the day Limit awakenings overnight Discontinue cyclobenzaprine due to risk of confusion. (3) Leukocytosis: Code(s): D72.829 - Elevated white blood cell count, unspecified Status: Acute Assessment and Plan: WBC remains elevated. No history suggesting infection. Likely related to fracture and current steroids. Continue to monitor WBC (4) Chronic obstructive pulmonary disease: Code(s): J44.9 - Chronic obstructive pulmonary disease, unspecified Status: Acute Assessment and Plan: Patient is in no acute COPD exacerbation at this time. (5) Hypertension: Code(s): I10 - Essential (primary) hypertension Status: Acute Assessment and Plan: Blood pressure remains stable. Will continue home medications at this time. metoprolol 50 mg daily Time Spent With Patient Time with patient: 25 - 35 minutes Subjective Date/time seen: 06/12/23 07:13 Interval history: 78-year-old male with chronic back pain s/p lumbar fusion L3-S1, hypertension, hyperlipidemia, and coronary artery disease who presented to the emergency department via EMS from home for evaluation of worsening back pain.?He was admitted for further pain management and PT/OT consultation for possible rehab placement. Patient is pleasant lying semi recumbent with at bedside. He states that he is having a better day than yesterday, rating his pain a 5/10. The pain continues to shoot down his left leg to his ankle. He continues to work with PT/OT and is doing well. He he also reports walking in his room with his 's help. He states the pain is primarily when he sits on the side of the bed. He remains on Lyrica, Celebrex, lidocaine patches, and his home dose of [place]. The IV dexamethasone was discontinued and the patient was started on a prednisone taper. He reports that he talked to his primary care provider and was told that his pacemaker is [employer]tr[employer] and should be compatible with the MRI. H
--- NOTE | 2023-06-12 08:12 | PCPTNOTE ---
Attempted to see patient at this time for PT, however patient states he had a bad night due to pain and requests PT return later. PT will continue to follow per plan of care.
[2023-06-12] MEDS: CHOLECALCIFEROL 1,000 UNITS TABLET 1000 UNITS PO (09:23)
[2023-06-12] MEDS: OPTI-GEN TAB 1 TABLET PO ×2 (09:23→17:05)
[2023-06-12] MEDS: MAGNESIUM 27 MG TABLET (500 MG MAG GLUCONATE) PO (09:23)
[2023-06-12] MEDS: CELECOXIB 100 MG CAPSULE PO ×2 (09:23→17:05)
[2023-06-12] MEDS: PREGABALIN (*CRX) 75 MG CAPSULE PO ×2 (09:23→21:07)
[2023-06-12] MEDS: ASPIRIN 81 MG ENTERIC TABLET PO (09:24)
[2023-06-12] MEDS: predniSONE 10 MG TABLET 60 MG PO (09:24)
[2023-06-12] MEDS: PANTOPRAZOLE 40 MG TABLET PO (09:24)
[2023-06-12] MEDS: ENOXAPARIN 40 MG/0.4 ML SYRINGE SUB-Q (09:25)
[2023-06-12] MEDS: polyethylene glycoL 3350 17 GM POWD.PACK PO (09:26)
[2023-06-12] MEDS: LIDOCAINE 5% PATCH 2 PATCH TRANSDERM (09:27)
[2023-06-12 14:00] VITALS: BP 144/71; PULSE 84; RESP 20; TEMP 36.9; O2SAT 99
[2023-06-12 17:04] VITALS: BP 142/67; PULSE 79; O2SAT 95
[2023-06-12 17:06] VITALS: PULSE 79
[2023-06-12] MEDS: FENOFIBRATE 160 MG TABLET PO (17:06)
[2023-06-12] MEDS: METOPROLOL SUCCINATE EXT REL 50 MG TABCR PO (17:06)
[2023-06-12 22:00] VITALS: BP 137/66; PULSE 67; RESP 20; TEMP 36.1; O2SAT 92
[2023-06-13] MEDS: ACETAMINOPHEN 325 MG TABLET 650 MG PO ×2 (00:46→08:33)
[2023-06-13 06:25] VITALS: BP 136/65; PULSE 71; RESP 20; TEMP 36.4; O2SAT 96
[2023-06-13 07:11] LABS: Hematocrit 40.8 % (42.0-52.0); Hemoglobin 13.8 g/dL (14.0-18.0); Mean Corpuscular HGB Conc 33.8 g/dl (32-36); Mean Corpuscular Hemoglobin 30.1 pg (26-34); Mean Corpuscular Volume 89.1 fl (80-100); Mean Platelet Volume 10.2 fl (7.4-10.4); Platelet Count Result 312 k/mm3 (150-375); Red Blood Count 4.58 M/mm3 (4.6-6.20); Red Cell Distribution Width 13.2 % (11.5-14.5); White Blood Count 17.6 K/mm3 (4.5-10.0)
[2023-06-13 07:36] LABS: Anion Gap 5 mmol/L (8-16); Blood Urea Nitrogen 37 mg/dL (9-20); Calcium 8.7 mg/dL (8.4-10.2); Carbon Dioxide 26 mmol/L (22-30); Chloride 102 mmol/L (98-107); Estimated CRCL calculation 64 ml/min; Estimated Glomerular Filt Rate > 60; Glucose 160 mg/dL (65-110); Potassium 4.1 mmol/L (3.4-5.0); Sodium 133 mmol/L (137-145)
[2023-06-13] MEDS: predniSONE 10 MG TABLET 60 MG PO (08:33)
[2023-06-13] MEDS: CELECOXIB 100 MG CAPSULE PO (08:35)
[2023-06-13] MEDS: PREGABALIN (*CRX) 75 MG CAPSULE PO (08:43)
[2023-06-13] MEDS: ASPIRIN 81 MG ENTERIC TABLET PO (08:43)
[2023-06-13] MEDS: LIDOCAINE 5% PATCH 2 PATCH TRANSDERM (08:44)
[2023-06-13] MEDS: MAGNESIUM 27 MG TABLET (500 MG MAG GLUCONATE) PO (08:44)
[2023-06-13] MEDS: PANTOPRAZOLE 40 MG TABLET PO (08:44)
[2023-06-13] MEDS: OPTI-GEN TAB 1 TABLET PO (08:44)
[2023-06-13] MEDS: ENOXAPARIN 40 MG/0.4 ML SYRINGE SUB-Q (08:44)
[2023-06-13] MEDS: CHOLECALCIFEROL 1,000 UNITS TABLET 1000 UNITS PO (08:44)
[2023-06-13] MEDS: polyethylene glycoL 3350 17 GM POWD.PACK PO (08:45)
[2023-06-13 10:59] LABS: Bacteria Urine None Seen /hpf; Non Pathogenic Casts 0-2; RBC Urine 0-2 /hpf (0-2); Squamous Epithelial Cell Urine None Seen /hpf (Few); WBC Urine 0-5 /hpf (0-3)
[2023-06-13 11:02] LABS: Appearance Urine Clear (Clear); Color Urine Yellow (Yellow)
[2023-06-13 11:03] LABS: Add Urine Microscopic? YES; Bilirubin Urine Negative (Negative); Blood Urine Negative (Negative); Glucose Urine UA Trace mg/dL (Negative); Ketones Urine Negative (Negative); Leukocyte Esterase Ur Negative LEU/UL (Negative); Nitrate Urine Negative (Negative); Protein Urine Negative (Negative)
--- NOTE | 2023-06-13 12:54 | PM.DS ---
DS: Admitting Diagnosis Discharge Date 06/13/23 Admitting Diagnosis Acute exacerbation of chronic low back pain Acute delirium Leukocytosis Chronic obstructive pulmonary disease Hypertension DS: Discharge Diagnosis Discharge Diagnosis (1) Acute exacerbation of chronic low back pain: Code(s): M54.50 - Low back pain, unspecified; G89.29 - Other chronic pain Status: Acute (2) Acute delirium: Code(s): R41.0 - Disorientation, unspecified Status: Acute (3) Leukocytosis: Code(s): D72.829 - Elevated white blood cell count, unspecified Status: Acute (4) Chronic obstructive pulmonary disease: Code(s): J44.9 - Chronic obstructive pulmonary disease, unspecified Status: Acute (5) Hypertension: Code(s): I10 - Essential (primary) hypertension Status: Acute DS: Summary Hospital Course Reason for hospitalization: Acute exacerbation of chronic low back pain Acute delirium Leukocytosis Chronic obstructive pulmonary disease Hypertension Hospital Course: 78-year-old male with chronic back pain s/p lumbar fusion L3-S1, hypertension, hyperlipidemia, and coronary artery disease who presented to the emergency department via EMS from home for evaluation of worsening back pain.?He was admitted for further pain management and PT/OT consultation for possible rehab placement. Per patient pain began 3 weeks ago. The pain radiates down his left leg causing him to be somewhat bed bound for the past [address] Lopez in pain management who did injections on May 23 and with no relief. He takes hydrocodone and cyclobenzaprine. CT lumbar spine revealed moderate lumbar spondylosis with superimposed osteophytes at multiple levels consistent with diffuse idiopathic skeletal hyperostosis (DISH). MRI is unable to be done due to patients pacemaker. Neurosurgery examined patient and recommend better imaging of the lumbar spine with a lumbar MRI vs CT myelogram. Patient is against CT myelogram due to history of spinal headaches.? Patient spoke with PCP and notes that his pacemaker is [employer].? Per neurosurgery will try to get pain better controlled with medications then decide if further spinal imaging is needed outpatient. During the admission patients pain was controlled on a prednisone taper, lyrica, lidocaine patches and celebrex. Patient continued his home hydrocodone. Patients leukocytosis likely related to the steroid. He had no signs of infection throughout his admission. He was able to work with PT/OT with minimal assistance. He will continue these medications and working with PT/OT at [facility] then follow up with neurosurgery in 2 weeks to discuss further plans. Patient was discharged to [facility] in a stable condition. He will continue the medications as prescribed and follow up with his primary care provider and neurosurgery in 2 weeks. Status at Discharge Functional status at discharge: independent ambulation Time Spent with Patient Time attestation: Total time spent providing and/or coordinating discharge services: Time spent: Greater than 30 minutes Exam Narrative: AF HR 71 RR 20 SpO2 96 BP 136/65 General: well nourished, well-developed male in no acute respiratory distress who is nontoxic appearing, lying in bed with knees bent and left leg raised off bed. HEENT: Normocephalic. Atraumatic. Pupils equal round reactive to light. Extraocular movement intact. No facial asymmetry. Chest: Lungs are clear to auscultation bilaterally. No wheezes or crackles. CV: Heart was regular rate and rhythm. S1/S2. No murmurs, gallops, or rubs. Abd: Abdomen was soft. Nontender. Nondistended. Positive bowel sounds. No organomegaly or masses. Ext: No clubbing, cyanosis, or edema. 2+ DP pulses bilaterally. Neuro: Patient is alert and oriented x4. Strength is 5/5 in both upper and lower extremities. Speech is clear. Psych: Normal mood and affect. Patient is pleasant and cooperative. Skin:
[2023-06-13 14:00] VITALS: BP 128/54; PULSE 81; RESP 20; TEMP 36.6; O2SAT 96
[2023-06-13 14:27] LABS: SARS-CoV-2 RNA PCR Negative (Negative)
== END 2023-06-13 16:10 | DRG 552 ==
LOC: ANHED 13:19 → ANH3MEDSUR 17:57
PROVIDERS: Internal Medicine; Physician Assistant; Student in an Organized Health Care Education/Training Program; Admitting Provider Internal Medicine; Emergency Provider Emergency Medicine; PCP Family Medicine; Visit Provider Internal Medicine
DX: M54.50 Low back pain, unspecified (principal); G89.29 Other chronic pain; H35.30 Unspecified macular degeneration; K21.9 Gastro-esophageal reflux disease without esophagitis; E78.5 Hyperlipidemia, unspecified; I10 Essential (primary) hypertension; J44.9 Chronic obstructive pulmonary disease, unspecified; I25.10 Atherosclerotic heart disease of native coronary artery without angina pectoris; R73.9 Hyperglycemia, unspecified; R41.0 Disorientation, unspecified; M48.10 Ankylosing hyperostosis [Forestier], site unspecified; D72.828 Other elevated white blood cell count; Z98.1 Arthrodesis status; Z86.711 Personal history of pulmonary embolism; Z90.49 Acquired absence of other specified parts of digestive tract; Z95.0 Presence of cardiac pacemaker; Z79.82 Long term (current) use of aspirin; T38.0X5A Adverse effect of glucocorticoids and synthetic analogues, initial encounter
CPT/HCPCS: 36415; 72131; 80048; 80053; 81001; 82550; 83036; 83735; 84145; 85025; 85027; 86140; 87635; 93005; 96361; 96374; 96375; 97110; 97116; 97162; 97166; 97530; 97535; 99285; A9270; G0378; J1100; J1170; J1650; J7030; J7512

== ENCOUNTER 2023-07-22 16:40 | Inpatient (IN) | payer MEDICARE, SELFPAY ==
[2023-07-22] VITALS (12 sets, daily range): BP systolic 132–151; BP diastolic 57–75; PULSE 88–93; RESP 12–17; TEMP 36.8–37.7; O2SAT 96–100; BMI 23.9
--- NOTE | 2023-07-22 16:48 | ED.BACK ---
HPI - Back Pain/Injury General Chief Complaint: Back Pain/Injury Stated Complaint: sciatica Time Seen by Provider: 07/22/23 16:44 Source: patient and EMS Mode of arrival: EMS Limitations: no limitations History of Present Illness HPI Narrative: PATIENT CAME FROM HOME WITH LEFT LOWER EXTREMITY PAIN STARTED OVER 60 DAYS AGO. FEW DAYS AGO PATIENT WAS ABLE TO GET MRI OF THE LOWER BACK, WHICH SHOWED SOME BULGING DISC, PATIENT REFERRED TO DR. GARCIA WHO REFERRED THE PATIENT TO A PAIN MANAGEMENT PHYSICIAN, PATIENT RECEIVED CORTISONE SHOTS WITHOUT ANY IMPROVEMENT. PATIENT IS TELLING ME THAT HE PAIN AT [facility] FOR THE LAST 4 WEEKS, HAS BEEN IN PAIN, NO IMPROVEMENT AFTER THE CORTISONE SHOT, WAS DISCHARGED YESTERDAY AND WAS STEALING PAIN, AT HOME HIS CAN NOT TAKE CARE OF HIM. PATIENT CAN NOT FUNCTION CAN STAND UP AND DO REGULAR ACTIVITIES. CAME BACK TO THE ED BY AMBULANCE. PATIENT DENIES ANY NEW PAIN COMPARED TO YESTERDAY OR 2 MONTHS AGO. Related Data Home Medications Medication Instructions Recorded Confirmed aspirin 81 mg tablet,delayed 81 mg PO DAILY 05/29/19 07/19/23 release fenofibrate 160 mg tablet 160 mg PO QPM 05/29/19 07/19/23 metoprolol succinate 50 mg 50 mg PO QPM 05/29/19 07/19/23 tablet,extended release 24 hr cholecalciferol (vitamin D3) 25 25 mcg PO DAILY 07/10/19 07/19/23 mcg (1,000 unit) tablet (Vitamin D3) magnesium 250 mg tablet 500 mg PO DAILY 07/10/19 07/19/23 pantoprazole 40 mg tablet,delayed 40 mg PO QAM 07/10/19 07/19/23 release vitamins A,C,X-hojv-wavuci 2,148 1 tablet PO BID 07/10/19 07/19/23 mcg-113 mg-45 mg-17.4 mg tablet (PreserVision AREDS) Allergies Allergy/AdvReac Type Severity Reaction Status Date / Time meperidine Allergy Severe STOPS HIS Verified 07/22/23 16:48 HEART Tetanus Vaccines and Toxoid Allergy Intermediate Rash Verified 07/22/23 16:48 Review of Systems Review of Systems: All systems reviewed & are unremarkable except as noted in HPI and below PMFSH Past Medical History Medical History Chronic obstructive pulmonary disease Complete heart block Status post pacemaker placement Coronary artery disease Nonobstructive coronary artery disease with 50% stenosis of the LAD and 40% stenosis of the RCA on cardiac catheterization December 2016. Depression Gastroesophageal reflux disease Hyperlipidemia Hypertension Macular degeneration Pacemaker Pulmonary embolism Surgical History Surgical History History of appendectomy History of cardiac catheterization December [address] Dr. Serrano History of colonoscopy History of lumbar fusion L3-4 5 in S1 History of repair of left rotator cuff Family History Family History Mother Left bundle branch block Sibling Coronary artery disease Sister Father Cerebrovascular accident Social History Social History Social History: Surrogate medical decision maker: Gita ridge, spouse. Code status: Full code. Smoking status: Never smoker Alcohol intake: never Substance use: never Substance use type: does not use Do You Feel Safe in your Home?: Yes Lack of Transportation: No Lack of Food: Never True Current Housing: I Have Housing Concerned About Future Housing: No Difficulty Paying Gas/Electric Bills: No Difficulty Paying for Meds: No Currently Unemployed: No Education: Decline to Answer Difficulty w/ Childcare or Family Care: No Living arrangements: with family Additional living arrangements comments: He lives with his of nearly 60 years. 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 Spiritual care concerns: No Agree to blood products: Yes Exam Narrative: GENERAL APPEARANCE: WELL-DEVELOPE
--- NOTE | 2023-07-22 18:13 | PCCCNOTE ---
Met with pt who is alert and oriented. Pt having intractable back pain which is affecting his mobility and quality of life. Pt had recent rehab stay at [facility] but his mobility is still limited. unable to properly care for pt. Pt would like to get current pain and nausea under control and to have Dr Faulkner see him. He is a current pt of Dr Faulkner. pt would like to explore pain options or surgical options with Dr Faulkner. I spoke with him regarding options like assisted living and NH. He did not believe that he could afford those options. I informed Dr Negron regarding the discussions with the pt.
[2023-07-22] MEDS: dexAMETHasone SOD PHOS INJ 10 MG/ML 1 ML VIAL IV PUSH ×2 (18:55→23:07)
[2023-07-22] MEDS: ONDANSETRON INJ 4 MG/2 ML VIAL IV PUSH (19:49)
--- NOTE | 2023-07-22 20:13 | ADMGEN ---
This patient, Kun Borjas, was admitted to Medical Room 247-. Patient/family oriented to hospital policies and general routines including ID bracelet, bed and alarms, visiting hours, pain management, procedures, bathroom and other care routines, personal items, smoking policy, room service/diet, and visiting hours. Information on how to activate the Rapid Response Team has been discussed. Patient/Family are encouraged to report perceived risks to care and to ask questions if they do not understand what they are told or what they should do.
[2023-07-22] MEDS: HYDROmorphone HCL INJ (*CRX) 1 MG/ML SYR 0.5 MG IV PUSH (20:46)
--- NOTE | 2023-07-22 21:09 | PM.IMHP ---
H&P: HPI History of Present Illness Date/Time: 07/22/23 21:00 Chief Complaint: Back pain. Narrative: This is an 78-year-old male with chronic back pain, hypertension, hyperlipidemia, coronary artery disease, and type 2 diabetes mellitus (A1c was 7.0% on 06/07/2023) who presented to the emergency department via EMS from home for evaluation of worsening back pain. The patient provides the following history. His and daughter provides additional information with the patient's permission. He has chronic back pain dating back many years and he has previously seen pain management with success. Over the course of the last 2 months or so he has had worsening, acute on chronic back pain for which she has received several outpatient injections without benefit. He was admitted to the hospital in mid May with an acute exacerbation of his back pain and he was sent to [facility] for rehab thereafter. MRI was unable to be done at this facility given his pacemaker and according to the he had 1 done at [facility] which showed bulging discs but I do not have the full report. states he made no improvement at rehab and he was discharged home yesterday. It took several people to get him into the car and he has not been able to get out of bed since being home. He describes a sharp and shooting pain in the low back radiating to the left buttock and down the side of the left leg and even into the left ankle and lateral foot. He cries out in excruciating pain with minimal movement. He denies significant alleviating factors. Even while lying flat and still, he rates his pain 5/10. He denies fever, chills, sweats, saddle anesthesia, urine retention, bowel incontinence, paresthesias, and decrease in strength from baseline in the lower extremities. Review of Systems Review of Systems: 12 systems were reviewed and are negative except for as per HPI. [facility] Past Medical History Medical History (Updated 07/22/23 @ 23:35 by Grace Deshpande PA-C) Chronic obstructive pulmonary disease Complete heart block Status post pacemaker placement Coronary artery disease Nonobstructive coronary artery disease with 50% stenosis of the LAD and 40% stenosis of the RCA on cardiac catheterization December 2016. Depression Gastroesophageal reflux disease Hyperlipidemia Hypertension Macular degeneration Pacemaker Pulmonary embolism Type 2 diabetes mellitus Surgical History Surgical History History of appendectomy History of cardiac catheterization December 2016 Dr. Serrano History of colonoscopy History of lumbar fusion L3-4 5 in S1 History of repair of left rotator cuff Family History Family History Mother Left bundle branch block Sibling Coronary artery disease Sister Father Cerebrovascular accident Social History Social History (Updated 07/22/23 @ 23:07 by Grace Deshpande PA-C) Social History: Surrogate medical decision maker: Gitaval Borjas, spouse. Code status: Full code. Smoking status: Never smoker Alcohol intake: never Substance use: never Substance use type: does not use Do You Feel Safe in your Home?: Yes Lack of Transportation: No Lack of Food: Never True Current Housing: I Have Housing Concerned About Future Housing: No Difficulty Paying Gas/Electric Bills: No Difficulty Paying for Meds: No Currently Unemployed: No Education: Master's Degree or Higher Difficulty w/ Childcare or Family Care: No Living arrangements: with family Additional living arrangements comments: He lives with his of nearly 60 years. 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 Spiritual care concerns: No Agree to blood products: Yes Meds Home Medications and Allergies Home Medications Medication Instructions Recorded Confirmed Typ
[2023-07-22] MEDS: ACETAMINOPHEN 325 MG TABLET 650 MG PO (23:07)
[2023-07-23] VITALS (7 sets, daily range): BP systolic 120–133; BP diastolic 54–73; PULSE 60–94; RESP 16–18; TEMP 36.6–37; O2SAT 94–97
[2023-07-23] MEDS: METOPROLOL SUCCINATE EXT REL 50 MG TABCR PO ×2 (00:50→17:32)
[2023-07-23] MEDS: PREGABALIN (*CRX) 75 MG CAPSULE PO ×3 (00:50→20:06)
[2023-07-23] MEDS: HYDROmorphone HCL INJ (*CRX) 1 MG/ML SYR 0.5 MG IV PUSH ×3 (02:23→21:40)
[2023-07-23 04:25] LABS: Hematocrit 39.4 % (42.0-52.0); Hemoglobin 12.8 g/dL (14.0-18.0); Mean Corpuscular HGB Conc 32.5 g/dl (32-36); Mean Corpuscular Hemoglobin 29.2 pg (26-34); Mean Platelet Volume 10.4 fl (7.4-10.4); Platelet Count Result 288 k/mm3 (150-375); Red Blood Count 4.38 M/mm3 (4.6-6.20); Red Cell Distribution Width 15.1 % (11.5-14.5); White Blood Count 12.5 K/mm3 (4.5-10.0)
[2023-07-23 04:44] LABS: Anion Gap 7 mmol/L (4-12); Blood Urea Nitrogen 17 mg/dL (9-20); CRP < 0.5 mg/dL (<1.0); Calcium 9.5 mg/dL (8.4-10.2); Carbon Dioxide 24 mmol/L (22-30); Chloride 107 mmol/L (98-107); Estimated CRCL calculation 57 ml/min; Estimated Glomerular Filt Rate > 60; Glucose 220 mg/dL (65-110); Magnesium 1.7 mg/dL (1.6-2.3); Potassium 4.1 mmol/L (3.4-5.0); Sodium 138 mmol/L (137-145)
[2023-07-23] MEDS: ACETAMINOPHEN 325 MG TABLET 650 MG PO (05:11)
[2023-07-23] MEDS: dexAMETHasone SOD PHOS INJ 10 MG/ML 1 ML VIAL IV PUSH ×4 (05:12→23:53)
--- NOTE | 2023-07-23 07:58 | PM.IMPN ---
Progress Note: A&P Assessment and Plan (1) Acute exacerbation of chronic low back pain: Code(s): M54.50 - Low back pain, unspecified; G89.29 - Other chronic pain Status: Acute Assessment and Plan: 07/23/23: Start dexamethasone Continue Lyrica 75 mg b.i.d. Lidocaine patch ordered daily Continue Gypsum 1 tab Q 6 hour p.r.n. pain Continue Celebrex 100 mg b.i.d. Neurosurgery to see patient today (2) Left lumbar radiculopathy: Code(s): M54.16 - Radiculopathy, lumbar region Status: Acute Assessment and Plan: 07/23/23: Outside hospital MRI of the lumbar spine without contrast revealed multilevel and postsurgical degenerative changes in the lower thoracic and lumbar spine contributing to varying degrees of spinal canal and foraminal stenosis, L2-L3 mild disc bulge. Neurosurgery consulted Continue pain control with Gypsum, Lyrica, Celebrex, lidocaine patch, dexamethasone (see above plan of care) PT and OT to eval and treat after neurosurgical consult (3) Hypertension: Code(s): I10 - Essential (primary) hypertension Status: Chronic Assessment and Plan: 07/23/23: Blood pressure ranging 125/71 to 135/64 Continue metoprolol extended release 50 mg at night (4) Type 2 diabetes mellitus: Code(s): E11.9 - Type 2 diabetes mellitus without complications Status: Chronic Assessment and Plan: 07/23/23: Blood sugars ranging 160-220 Last hemoglobin A1c 7.0 on 06/07/23 Accu-Cheks AC and HS Low-dose sliding scale insulin ordered will switch to mid-dose SSI today considering the use of steroids, may need further adjustments Hypoglycemic protocol in place (5) Hyperlipidemia: Code(s): E78.5 - Hyperlipidemia, unspecified Status: Chronic Assessment and Plan: 07/23/23: Continue aspirin and fenofibrate Time Spent With Patient Time with patient: Greater than 35 minutes Subjective Date/time seen: 07/23/23 07:58 Interval history: This is an 78-year-old male presented to the hospital on 07/22/2023 with complaints of worsening back pain. Patient was recently admitted to the hospital back in May with an acute exacerbation of his back pain was sent to [facility] for rehab. He had an MRI done at [facility] which shown mild disc bulge between L2-L3, multilevel and postsurgical degenerative changes in the lower thoracic and lumbar spine contributing to varying degrees of spinal canal and foraminal stenosis. states that he was not improved at rehab and he was discharged home yesterday however it took a few people to get him in the car and was not able to get up out of the bed since being home. He was reporting sharp and shooting pain in the low back radiating to the left buttock and down the side of the leg. The ED physician spoke with Neurosurgery on-call and recommended him be admitted for pain control and they will see him as a consultation. He was started on dexamethasone. Initial labs showed a white blood cell count of 12.5, hemoglobin 12.8, blood glucose was 220, magnesium was 1.7, CRP was less than 0.5. On examination today patient is alert oriented x3 lying in the bed. He denies any fever, chills, nausea, vomiting, diarrhea, abdominal pain, chest pain, shortness a breath, headache, lightheadedness, dizziness. He endorses sharp shooting pain that is intermittent and radiates down his left leg to his ankle. He rates his pain as 10/10 when it hits them however right now he is only having mild pain. Neurosurgery to see patient today. We will continue with dexamethasone and his normal pain regimen for now. Review of Systems Review of Systems: All systems reviewed & are unremarkable except as noted in HPI and below Constitutional: Constitutional: Reports as per HPI and Reports no additional constitutional complaints Eyes: Eyes: Reports as per HPI and Reports no additional eye complaints ENT: Reports system reviewed and no additional complain
[2023-07-23] MEDS: LIDOCAINE 5% PATCH 2 PATCH TRANSDERM (09:04)
[2023-07-23] MEDS: CHOLECALCIFEROL 1,000 UNITS TABLET 1000 UNITS PO (09:05)
[2023-07-23] MEDS: MAGNESIUM OXIDE 400 MG TABLET PO (09:05)
[2023-07-23] MEDS: PANTOPRAZOLE 40 MG TABLET PO (09:05)
[2023-07-23] MEDS: OPTI-GEN TAB 1 TABLET PO ×2 (09:05→17:32)
[2023-07-23] MEDS: ASPIRIN 81 MG ENTERIC TABLET PO (09:05)
[2023-07-23] MEDS: CELECOXIB 100 MG CAPSULE PO ×2 (09:05→17:32)
--- NOTE | 2023-07-23 09:46 | PCPTNOTE ---
0946: Per Nursing, awaiting neuro consult prior to therapy evaluation.
--- NOTE | 2023-07-23 09:46 | PCOTNOTE ---
Attempted OT evaluation; per RN hold until pt. is seen by neurosurgery. Will attempt evaluation once cleared.
[2023-07-23 12:13] LABS: Glucose Point of Care 345 mg/dl (65-105)
[2023-07-23] MEDS: INSULIN ASPART (*BKC) 100 UNITS/ML SUB-Q ×2 (12:16→20:03)
--- NOTE | 2023-07-23 14:41 | WPDNEUROSGCN ---
Assessment and Plan Assessment and plan (1) Lumbar spondylosis: Code(s): M47.816 - Spondylosis without myelopathy or radiculopathy, lumbar region Status: Acute Plan Kun Borjas is a very pleasant 78 year old male with a history of prior multilevel decompresion and non instrumented fusion L3-S1 performed nearly 40 years ago who has a long standing history of chronic pain with recent exaccerbation over the past 2-3 months. He has had two hospitalizations and returned to the hospital with back and left lower extremity pain. His pain control is improved since admission. 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 I do not see a clear immediate role for urgent surgical intervention and I have had a quite extended discussion with the joceline and his family (lasting over 80 minutes) to this effect emphasizing that surgical intervention could include a decompression (but in the absence of a clear response to AMY this may not be beneficial) repeat decompression and fusion (again a possiblity but without respose to AMY, unclear fully as to benefit particularly given past discussions of arachnoiditis) versus SCS trial. At present I would favor aggressive pursuit of pain control including consideration of titration of his Lyrica (currently 75mg bid, could increase to tid) along with pain medication. Patient has outpaient appointments scheduled with cardiology this week and with Dr. Del Rio on 07/30. CT myelography may be beneficial as an outpatinet to evaluate for concern for arachnoiditis. Discussions with Dr. Del Rio should also include at least consideration of SCS trial. I have discussed all of this at some length with the patient who expresses understanding and with Dr. Faulkner who is aware. Once pain control is improved would recommend mobilization with PT/OT and I have emphasized the importance of this to joceline and family. Jocelnie currently is not fully mobile and will be here for at least 2-3 midnights most likely with goal being to transition back home with home health set up prior to d/c. Consult date: 07/23/23 HPI: Kun Borjas is a 78 year old male with chronic back pain, hypertension, hyperlipidemia, coronary artery disease, and type 2 diabetes mellitus (A1c was 7.0% on 06/07/2023) who presented to the emergency department via EMS from home for evaluation of worsening back pain. The patient provided the following history to the ED team and hospitalist. His and daughter provides additional information with the patient's permission. He has chronic back pain dating back many years and he has previously seen pain management with success. Over the course of the last 2 months or so he has had worsening, acute on chronic back pain for which he has received several outpatient injections without benefit. He was admitted to the hospital in mid May with an acute exacerbation of his back pain and he was sent to [facility] for rehab thereafter. MRI was unable to be done at this facility given his pacemaker and according to the he had 1 done at [facility] which showed bulging discs. I have reviewed the MRI report as well as a CT that was done here. The patient states that he had a spinal surgery in the that took eight hours and included, based upon my review of the CT, decompressions at L3-4, L4-5 and L5-S1. The patinet states that he had a hip graft taken and a non instrumented fusion at the time as well. The patient notes severe back pain as well as more recently left lower extremity pain involving the buttock and anterior thigh. His MRI, based upon the report (as it is an outside study) shows moderate stenosis at L4-5 with a paracentral disc bulge to the left at this level. The patient states that he has had AMY targeting L5-S1 and L4-5 (most recen
[2023-07-23 16:17] LABS: Glucose Point of Care 182 mg/dl (65-105)
[2023-07-23] MEDS: FENOFIBRATE 160 MG TABLET PO (17:32)
[2023-07-23] MEDS: ONDANSETRON INJ 4 MG/2 ML VIAL IV PUSH (17:40)
[2023-07-23] MEDS: HYDROcodone/acetaminophen (*CRX) 5-325 MG TABLET 1 TAB PO (18:12)
[2023-07-23 20:41] LABS: Glucose Point of Care 227 mg/dl (65-105)
--- NOTE | 2023-07-24 | ECHO_ITS ---
Patient Info Name: Kun Borjas Age: 78 years : 1945 Gender: Male Ht: 69 in Wt: 167 lbs BSA: 1.93 m2 HR: 82 bpm Heart Rhythm: Sinus Rhythm, Paced Technical Quality: Fair Exam Date: 07/24/2023 1:46 PM Exam Location: Echo Lab Patient Status: Inpatient Admit Date: 07/24/2023 Staff Ordering Physician: Monika Avitia APRN Marine Design Engineer: Gama Palencia RDCS Attending Provider: Jorge Knutson MD Referring Physician: Adore SULLIVAN; Exam Type: CA echo doppler color flow Study Info Complete two-dimensional, color flow and Doppler transthoracic echocardiogram is performed. Summary 1. Left ventricular chamber dimension is normal. 2. Left ventricular systolic function is at lower limits of normal, estimated at 50-55%. 3. There is mildly increased left ventricular wall thickness. 4. Left ventricular septal wall motion is abnormal with septal motion related to pacing. 5. Right ventricular systolic function is normal. 6. There is mild tricuspid valve regurgitation. Left Ventricle Left ventricular chamber dimension is normal. Left ventricular systolic function is at lower limits of normal, estimated at 50-55%. There is mildly increased left ventricular wall thickness. Left ventricular septal wall motion is abnormal with septal motion related to pacing. The left ventricular diastolic function is grade I diastolic dysfunction. Right Ventricle Linear artifact in right ventricle suggestive of catheter(s), pacemaker lead(s), or ICD lead(s). Right ventricular chamber dimension is normal. Right ventricular systolic function is normal. Left Atria Left atrial chamber dimension is normal. Right Atria Linear artifact in the right atrium suggestive of catheter(s), pacemaker lead(s), or ICD lead(s). Right atrial chamber dimension is normal. Atrial Septum Intact interatrial septum visualized by color flow imaging. Aortic Valve The aortic valve is trileaflet. There is mild aortic valve sclerosis. There is no aortic valve stenosis. There is no aortic valve regurgitation. Pulmonic Valve The pulmonic valve is not well visualized. Mitral Valve There is trace mitral valve regurgitation. Tricuspid Valve There is mild tricuspid valve regurgitation. Pericardium/Pleural There is no pericardial effusion. Inferior Vena Cava Normal inferior vena cava with >50% collapse upon inspiration consistent with normal right atrial pressure, 3 mmHg. Aorta The aortic root size at the sinus of Valsalva is normal. Left Ventricular Outflow Tract Name Value Normal LVOT 2D LVOT Diameter 1.9 cm LVOT Doppler LVOT Peak Gradient 5 mmHg LVOT Mean Gradient 2 mmHg LVOT VTI 20 cm LVOT VTI/AV VTI Ratio 0.9 LVOT Stroke Volume 55 ml LVOT CO 4.1 l/min LVOT CI 2.1 l/min/m2 Pulmonic Valve Name Value Normal RVOT Doppler
[2023-07-24] MEDS: HYDROmorphone HCL INJ (*CRX) 1 MG/ML SYR 0.5 MG IV PUSH ×2 (04:43→23:16)
[2023-07-24 05:19] VITALS: BP 115/55; PULSE 79; RESP 18; TEMP 36.7; O2SAT 99
[2023-07-24 05:19] LABS: Basophils Percent Auto 0.1 % (0.2-1.2); Hematocrit 35.8 % (42.0-52.0); Hemoglobin 11.9 g/dL (14.0-18.0); Immature Granulocyte Absolute 0.14 K/mm3 (0.00-0.031); Immature Granulocyte Percent A 0.7 % (0-0.5); Lymphocytes Absolute Auto 2.15 K/mm3 (0.9-3.2); Lymphocytes Percent Auto 10.4 % (18.3-44.2); Mean Corpuscular HGB Conc 33.2 g/dl (32-36); Mean Corpuscular Volume 90.2 fl (80-100); Mean Platelet Volume 10.7 fl (7.4-10.4); Monocytes Absolute Auto 0.8 K/mm3 (0.1-0.6); Monocytes Percent Auto 3.9 % (2.6-8.5); Neutrophils Absolute Auto 17.5 K/mm3 (1.3-6.7); Neutrophils Percent Auto 84.9 % (45.5-73.1); Platelet Count Result 299 k/mm3 (150-375); Red Blood Count 3.97 M/mm3 (4.6-6.20); Red Cell Distribution Width 15.1 % (11.5-14.5); White Blood Count 20.6 K/mm3 (4.5-10.0)
[2023-07-24 05:25] LABS: Alanine Aminotransferase 22 U/L (6-50); Albumin Level 3.5 g/dL (3.5-5.1); Alkaline Phosphatase 62 U/L (38-126); Anion Gap 4 mmol/L (4-12); Aspartate Amino Transferase 24 U/L (17-59); Bilirubin,Total 0.5 mg/dL (0.2-1.3); Blood Urea Nitrogen 30 mg/dL (9-20); Carbon Dioxide 25 mmol/L (22-30); Chloride 105 mmol/L (98-107); Estimated CRCL calculation 57 ml/min; Estimated Glomerular Filt Rate > 60; Glucose 201 mg/dL (65-110); Potassium 4.5 mmol/L (3.4-5.0); Sodium 134 mmol/L (137-145)
[2023-07-24] MEDS: dexAMETHasone SOD PHOS INJ 10 MG/ML 1 ML VIAL IV PUSH ×4 (05:34→23:16)
--- NOTE | 2023-07-24 07:41 | P.PNIM_ITS ---
Progress Note: A&P Assessment and Plan (1) Acute exacerbation of chronic low back pain: Code(s): M54.50 - Low back pain, unspecified; G89.29 - Other chronic pain Status: Acute Assessment and Plan: 07/23/23: * Start dexamethasone * Continue Lyrica 75 mg b.i.d. * Lidocaine patch ordered daily * Continue [place] 1 tab Q 6 hour p.r.n. pain * Continue Celebrex 100 mg b.i.d. * Neurosurgery to see patient today 07/24/23: * Continue dexamethasone * Increase Lyrica to 75 mg t.i.d. * Increase [place] to 10 mg/325 mg * Continue Celebrex and lidocaine patch * Neurosurgery following * PT and OT * Echo ordered for cardiac clearance. (2) Left lumbar radiculopathy: Code(s): M54.16 - Radiculopathy, lumbar region Status: Acute Assessment and Plan: 07/23/23: * Outside hospital MRI of the lumbar spine without contrast revealed multilevel and postsurgical degenerative changes in the lower thoracic and lumbar spine contributing to varying degrees of spinal canal and foraminal stenosis, L2-L3 mild disc bulge. * Neurosurgery consulted * Continue pain control with [place], Lyrica, Celebrex, lidocaine patch, dexamethasone (see above plan of care) * PT and OT to eval and treat after neurosurgical consult 07/24/23: * Will increase his Lyrica to 75 mg t.i.d. * Increase [place] to 10/325 * Continue dexamethasone, Celebrex, lidocaine patch * Neurosurgery following (3) Hypertension: Code(s): I10 - Essential (primary) hypertension Status: Chronic Assessment and Plan: 07/23/23: * Blood pressure ranging 125/71 to 135/64 * Continue metoprolol extended release 50 mg at night 07/24/23: * Continue with current treatment plan (4) Type 2 diabetes mellitus: Code(s): E11.9 - Type 2 diabetes mellitus without complications Status: Chronic Assessment and Plan: 07/23/23: * Blood sugars ranging 160-220 * Last hemoglobin A1c 7.0 on 06/07/23 * Accu-Cheks AC and HS * Low-dose sliding scale insulin ordered will switch to mid-dose SSI today considering the use of steroids, may need further adjustments * Hypoglycemic protocol in place 07/24/23: * Blood sugars 121-220 * Will increase to moderate dose sliding scale (5) Hyperlipidemia: Code(s): E78.5 - Hyperlipidemia, unspecified Status: Chronic Assessment and Plan: 07/23/23: * Continue aspirin and fenofibrate 07/24/23: * No change to current treatment plan Time Spent With Patient Time with patient: Greater than 35 minutes Subjective Date/time seen: 07/24/23 07:41 Interval history: 07/23/23: This is an 78-year-old male presented to the hospital on 07/22/2023 with complaints of worsening back pain. Patient was recently admitted to the hospital back in May with an acute exacerbation of his back pain was sent to [facility] for rehab. He had an MRI done at [facility] which shown mild disc bulge between L2-L3, multilevel and postsurgical degenerative changes in the lower thoracic and lumbar spine contributing to varying degrees of spinal canal and foraminal stenosis. states that he was not improved at rehab and he was discharged home yesterday however it took a few people to get him in the car and was not able to get up out of the bed since being home. He was reporting sharp and shooting pain in the low back radiating to the left buttock and down the side of the leg. The ED physician spoke with Neurosurgery on-call and recommended him be admitted for pain control and they will see him as a consultation. He was started on dexamethasone. Initial l
--- NOTE | 2023-07-24 07:41 | PM.IMPN ---
Progress Note: A&P Assessment and Plan (1) Acute exacerbation of chronic low back pain: Code(s): M54.50 - Low back pain, unspecified; G89.29 - Other chronic pain Status: Acute Assessment and Plan: 07/23/23: Start dexamethasone Continue Lyrica 75 mg b.i.d. Lidocaine patch ordered daily Continue [place] 1 tab Q 6 hour p.r.n. pain Continue Celebrex 100 mg b.i.d. Neurosurgery to see patient today 07/24/23: Continue dexamethasone Increase Lyrica to 75 mg t.i.d. Increase [place] to 10 mg/325 mg Continue Celebrex and lidocaine patch Neurosurgery following PT and OT Echo ordered for cardiac clearance. (2) Left lumbar radiculopathy: Code(s): M54.16 - Radiculopathy, lumbar region Status: Acute Assessment and Plan: 07/23/23: Outside hospital MRI of the lumbar spine without contrast revealed multilevel and postsurgical degenerative changes in the lower thoracic and lumbar spine contributing to varying degrees of spinal canal and foraminal stenosis, L2-L3 mild disc bulge. Neurosurgery consulted Continue pain control with [place], Lyrica, Celebrex, lidocaine patch, dexamethasone (see above plan of care) PT and OT to eval and treat after neurosurgical consult 07/24/23: Will increase his Lyrica to 75 mg t.i.d. Increase [place] to 10/325 Continue dexamethasone, Celebrex, lidocaine patch Neurosurgery following (3) Hypertension: Code(s): I10 - Essential (primary) hypertension Status: Chronic Assessment and Plan: 07/23/23: Blood pressure ranging 125/71 to 135/64 Continue metoprolol extended release 50 mg at night 07/24/23: Continue with current treatment plan (4) Type 2 diabetes mellitus: Code(s): E11.9 - Type 2 diabetes mellitus without complications Status: Chronic Assessment and Plan: 07/23/23: Blood sugars ranging 160-220 Last hemoglobin A1c 7.0 on 06/07/23 Accu-Cheks AC and HS Low-dose sliding scale insulin ordered will switch to mid-dose SSI today considering the use of steroids, may need further adjustments Hypoglycemic protocol in place 07/24/23: Blood sugars 121-220 Will increase to moderate dose sliding scale (5) Hyperlipidemia: Code(s): E78.5 - Hyperlipidemia, unspecified Status: Chronic Assessment and Plan: 07/23/23: Continue aspirin and fenofibrate 07/24/23: No change to current treatment plan Time Spent With Patient Time with patient: Greater than 35 minutes Subjective Date/time seen: 07/24/23 07:41 Interval history: 07/23/23: This is an 78-year-old male presented to the hospital on 07/22/2023 with complaints of worsening back pain. Patient was recently admitted to the hospital back in May with an acute exacerbation of his back pain was sent to [facility] for rehab. He had an MRI done at [facility] which shown mild disc bulge between L2-L3, multilevel and postsurgical degenerative changes in the lower thoracic and lumbar spine contributing to varying degrees of spinal canal and foraminal stenosis. states that he was not improved at rehab and he was discharged home yesterday however it took a few people to get him in the car and was not able to get up out of the bed since being home. He was reporting sharp and shooting pain in the low back radiating to the left buttock and down the side of the leg. The ED physician spoke with Neurosurgery on-call and recommended him be admitted for pain control and they will see him as a consultation. He was started on dexamethasone. Initial labs showed a white blood cell count of 12.5, hemoglobin 12.8, blood glucose was 220, magnesium was 1.7, CRP was less than 0.5. On examination today patient is alert oriented x3 lying in the bed. He denies any fever, chills, nausea, vomiting, diarrhea, abdominal pain, chest pain, shortness a breath, headache, lightheadedness, dizziness. He endorses sharp shooting pain that is intermittent and radiates down his left leg to his ankl
[2023-07-24] MEDS: OPTI-GEN TAB 1 TABLET PO ×2 (08:16→16:37)
[2023-07-24 08:17] VITALS: RESP 18; O2SAT 99
[2023-07-24] MEDS: PANTOPRAZOLE 40 MG TABLET PO (08:17)
[2023-07-24] MEDS: ASPIRIN 81 MG ENTERIC TABLET PO (08:17)
[2023-07-24] MEDS: PREGABALIN (*CRX) 75 MG CAPSULE PO ×3 (08:17→16:37)
[2023-07-24] MEDS: MAGNESIUM OXIDE 400 MG TABLET PO (08:17)
[2023-07-24] MEDS: HYDROcodone/acetaminophen (*CRX) 10-325 MG TABLET 1 TAB PO ×3 (08:17→20:10)
[2023-07-24] MEDS: CELECOXIB 100 MG CAPSULE PO ×2 (08:17→16:37)
[2023-07-24] MEDS: CHOLECALCIFEROL 1,000 UNITS TABLET 1000 UNITS PO (08:17)
[2023-07-24] MEDS: LIDOCAINE 5% PATCH 2 PATCH TRANSDERM (08:17)
[2023-07-24 08:19] LABS: Glucose Point of Care 170 mg/dl (65-105)
--- NOTE | 2023-07-24 08:40 | PCPTNOTE ---
pt adamantly refused to participate in physical therapy evaluation, states his does all ADLs for him, pt calmly laying in bed and stated he is in too much pain to exit the bed, PT asked if he would be willing to get out of bed for breakfast and pt stated that that's what you're for indicating the PT would be lifting the pt out of bed, PT informed pt that he needs to give effort in his rehab to improve his physical ability, pt told PT to get out of the room so he can focus on eating his breakfast, will follow
[2023-07-24 11:58] LABS: Glucose Point of Care 219 mg/dl (65-105)
[2023-07-24] MEDS: INSULIN ASPART (*BKC) 100 UNITS/ML SUB-Q ×2 (12:00→20:11)
[2023-07-24 14:36] VITALS: BP 112/49; PULSE 88; RESP 17; TEMP 36.6; O2SAT 98
[2023-07-24 17:09] LABS: Glucose Point of Care 187 mg/dl (65-105)
[2023-07-24 17:22] VITALS: PULSE 88
[2023-07-24] MEDS: METOPROLOL SUCCINATE EXT REL 50 MG TABCR PO (17:22)
[2023-07-24] MEDS: FENOFIBRATE 160 MG TABLET PO (17:23)
[2023-07-24 20:19] LABS: Glucose Point of Care 230 mg/dl (65-105)
[2023-07-24 22:00] VITALS: BP 126/55; PULSE 84; RESP 18; TEMP 36.8; O2SAT 97
[2023-07-25 05:42] LABS: Basophils Percent Auto 0.1 % (0.2-1.2); Hematocrit 39.1 % (42.0-52.0); Hemoglobin 12.9 g/dL (14.0-18.0); Immature Granulocyte Absolute 0.16 K/mm3 (0.00-0.031); Immature Granulocyte Percent A 0.9 % (0-0.5); Lymphocytes Absolute Auto 1.57 K/mm3 (0.9-3.2); Lymphocytes Percent Auto 8.6 % (18.3-44.2); Mean Corpuscular Hemoglobin 30.1 pg (26-34); Mean Corpuscular Volume 91.4 fl (80-100); Mean Platelet Volume 10.6 fl (7.4-10.4); Monocytes Absolute Auto 0.7 K/mm3 (0.1-0.6); Monocytes Percent Auto 3.9 % (2.6-8.5); Neutrophils Absolute Auto 15.8 K/mm3 (1.3-6.7); Neutrophils Percent Auto 86.5 % (45.5-73.1); Platelet Count Result 287 k/mm3 (150-375); Red Blood Count 4.28 M/mm3 (4.6-6.20); Red Cell Distribution Width 15.3 % (11.5-14.5); White Blood Count 18.2 K/mm3 (4.5-10.0)
[2023-07-25] MEDS: dexAMETHasone SOD PHOS INJ 10 MG/ML 1 ML VIAL IV PUSH ×3 (05:42→17:11)
[2023-07-25 05:51] LABS: Alanine Aminotransferase 25 U/L (6-50); Albumin Level 3.9 g/dL (3.5-5.1); Alkaline Phosphatase 64 U/L (38-126); Anion Gap 7 mmol/L (4-12); Aspartate Amino Transferase 27 U/L (17-59); Bilirubin,Total 0.7 mg/dL (0.2-1.3); Blood Urea Nitrogen 38 mg/dL (9-20); Calcium 9.1 mg/dL (8.4-10.2); Carbon Dioxide 27 mmol/L (22-30); Chloride 102 mmol/L (98-107); Estimated CRCL calculation 52 ml/min; Estimated Glomerular Filt Rate > 60; Glucose 219 mg/dL (65-110); Potassium 4.5 mmol/L (3.4-5.0); Sodium 136 mmol/L (137-145)
[2023-07-25 06:00] VITALS: BP 127/64; PULSE 74; RESP 16; TEMP 36.5; O2SAT 97
[2023-07-25 08:41] LABS: Glucose Point of Care 190 mg/dl (65-105)
[2023-07-25 08:45] VITALS: O2SAT 97
[2023-07-25] MEDS: OPTI-GEN TAB 1 TABLET PO ×2 (08:48→16:44)
[2023-07-25] MEDS: CELECOXIB 100 MG CAPSULE PO ×2 (08:48→16:44)
[2023-07-25] MEDS: LIDOCAINE 5% PATCH 2 PATCH TRANSDERM (08:48)
[2023-07-25] MEDS: HYDROcodone/acetaminophen (*CRX) 10-325 MG TABLET 1 TAB PO ×3 (08:48→20:10)
[2023-07-25 08:49] VITALS: RESP 16; O2SAT 97
[2023-07-25] MEDS: PREGABALIN (*CRX) 75 MG CAPSULE PO ×3 (08:49→16:45)
[2023-07-25] MEDS: CHOLECALCIFEROL 1,000 UNITS TABLET 1000 UNITS PO (08:49)
[2023-07-25] MEDS: ASPIRIN 81 MG ENTERIC TABLET PO (08:49)
[2023-07-25] MEDS: PANTOPRAZOLE 40 MG TABLET PO (08:49)
[2023-07-25] MEDS: MAGNESIUM OXIDE 400 MG TABLET PO (08:49)
--- NOTE | 2023-07-25 10:50 | PCPTNOTE ---
The patient treatment was not able to be completed at this time due to patient attempting to download his pacemaker data to send to his [employer]. Will plan to continue treatment per plan of care.
--- NOTE | 2023-07-25 10:58 | P.PNIM_ITS ---
Progress Note: A&P Assessment and Plan (1) Acute exacerbation of chronic low back pain: Code(s): M54.50 - Low back pain, unspecified; G89.29 - Other chronic pain Status: Acute Assessment and Plan: 07/23/23: * Start dexamethasone * Continue Lyrica 75 mg b.i.d. * Lidocaine patch ordered daily * Continue [place] 1 tab Q 6 hour p.r.n. pain * Continue Celebrex 100 mg b.i.d. * Neurosurgery to see patient today 07/24/23: * Continue dexamethasone * Increase Lyrica to 75 mg t.i.d. * Increase [place] to 10 mg/325 mg * Continue Celebrex and lidocaine patch * Neurosurgery following * PT and OT * Echo ordered for cardiac clearance. 07/25/23: * Continue dexamethasone * Continue with current pain regimen * Neurosurgery following * Continue PT and OT * Echo obtained and results are pending (2) Left lumbar radiculopathy: Code(s): M54.16 - Radiculopathy, lumbar region Status: Acute Assessment and Plan: 07/23/23: * Outside hospital MRI of the lumbar spine without contrast revealed multilevel and postsurgical degenerative changes in the lower thoracic and lumbar spine contributing to varying degrees of spinal canal and foraminal stenosis, L2-L3 mild disc bulge. * Neurosurgery consulted * Continue pain control with [place], Lyrica, Celebrex, lidocaine patch, dexamethasone (see above plan of care) * PT and OT to eval and treat after neurosurgical consult 07/24/23: * Will increase his Lyrica to 75 mg t.i.d. * Increase [place] to 10/325 * Continue dexamethasone, Celebrex, lidocaine patch * Neurosurgery following 07/25/23: * No change to current treatment plan (3) Hypertension: Code(s): I10 - Essential (primary) hypertension Status: Chronic Assessment and Plan: 07/23/23: * Blood pressure ranging 125/71 to 135/64 * Continue metoprolol extended release 50 mg at night 07/24/23: * Continue with current treatment plan (4) Type 2 diabetes mellitus: Code(s): E11.9 - Type 2 diabetes mellitus without complications Status: Chronic Assessment and Plan: 07/23/23: * Blood sugars ranging 160-220 * Last hemoglobin A1c 7.0 on 06/07/23 * Accu-Cheks AC and HS * Low-dose sliding scale insulin ordered will switch to mid-dose SSI today considering the use of steroids, may need further adjustments * Hypoglycemic protocol in place 07/24/23: * Blood sugars 121-220 * Will increase to moderate dose sliding scale 07/25/23: * Blood sugars ranging 190-219 * Will increase to a high dose sliding scale insulin today (5) Hyperlipidemia: Code(s): E78.5 - Hyperlipidemia, unspecified Status: Chronic Assessment and Plan: 07/23/23: * Continue aspirin and fenofibrate 07/24/23: * No change to current treatment plan Time Spent With Patient Time with patient: Greater than 35 minutes Subjective Date/time seen: 07/25/23 10:58 Interval history: 07/23/23: This is an 78-year-old male presented to the hospital on 07/22/2023 with complaints of worsening back pain. Patient was recently admitted to the hospital back in May with an acute exacerbation of his back pain was sent to [facility] for rehab. He had an MRI done at [facility] which shown mild disc bulge between L2-L3, multilevel and postsurgical degenerative changes in the lower thoracic and lumbar spine contributing to varying degrees of spinal canal and foraminal stenosis. states that he was not improved at rehab and he was discharged home yesterday however it took a few people to get him in the car and w
--- NOTE | 2023-07-25 10:58 | PM.IMPN ---
Progress Note: A&P Assessment and Plan (1) Acute exacerbation of chronic low back pain: Code(s): M54.50 - Low back pain, unspecified; G89.29 - Other chronic pain Status: Acute Assessment and Plan: 07/23/23: Start dexamethasone Continue Lyrica 75 mg b.i.d. Lidocaine patch ordered daily Continue [place] 1 tab Q 6 hour p.r.n. pain Continue Celebrex 100 mg b.i.d. Neurosurgery to see patient today 07/24/23: Continue dexamethasone Increase Lyrica to 75 mg t.i.d. Increase [place] to 10 mg/325 mg Continue Celebrex and lidocaine patch Neurosurgery following PT and OT Echo ordered for cardiac clearance. 07/25/23: Continue dexamethasone Continue with current pain regimen Neurosurgery following Continue PT and OT Echo obtained and results are pending (2) Left lumbar radiculopathy: Code(s): M54.16 - Radiculopathy, lumbar region Status: Acute Assessment and Plan: 07/23/23: Outside hospital MRI of the lumbar spine without contrast revealed multilevel and postsurgical degenerative changes in the lower thoracic and lumbar spine contributing to varying degrees of spinal canal and foraminal stenosis, L2-L3 mild disc bulge. Neurosurgery consulted Continue pain control with [place], Lyrica, Celebrex, lidocaine patch, dexamethasone (see above plan of care) PT and OT to eval and treat after neurosurgical consult 07/24/23: Will increase his Lyrica to 75 mg t.i.d. Increase [place] to 10/325 Continue dexamethasone, Celebrex, lidocaine patch Neurosurgery following 07/25/23: No change to current treatment plan (3) Hypertension: Code(s): I10 - Essential (primary) hypertension Status: Chronic Assessment and Plan: 07/23/23: Blood pressure ranging 125/71 to 135/64 Continue metoprolol extended release 50 mg at night 07/24/23: Continue with current treatment plan (4) Type 2 diabetes mellitus: Code(s): E11.9 - Type 2 diabetes mellitus without complications Status: Chronic Assessment and Plan: 07/23/23: Blood sugars ranging 160-220 Last hemoglobin A1c 7.0 on 06/07/23 Accu-Cheks AC and HS Low-dose sliding scale insulin ordered will switch to mid-dose SSI today considering the use of steroids, may need further adjustments Hypoglycemic protocol in place 07/24/23: Blood sugars 121-220 Will increase to moderate dose sliding scale 07/25/23: Blood sugars ranging 190-219 Will increase to a high dose sliding scale insulin today (5) Hyperlipidemia: Code(s): E78.5 - Hyperlipidemia, unspecified Status: Chronic Assessment and Plan: 07/23/23: Continue aspirin and fenofibrate 07/24/23: No change to current treatment plan Time Spent With Patient Time with patient: Greater than 35 minutes Subjective Date/time seen: 07/25/23 10:58 Interval history: 07/23/23: This is an 78-year-old male presented to the hospital on 07/22/2023 with complaints of worsening back pain. Patient was recently admitted to the hospital back in May with an acute exacerbation of his back pain was sent to [facility] for rehab. He had an MRI done at [facility] which shown mild disc bulge between L2-L3, multilevel and postsurgical degenerative changes in the lower thoracic and lumbar spine contributing to varying degrees of spinal canal and foraminal stenosis. states that he was not improved at rehab and he was discharged home yesterday however it took a few people to get him in the car and was not able to get up out of the bed since being home. He was reporting sharp and shooting pain in the low back radiating to the left buttock and down the side of the leg. The ED physician spoke with Neurosurgery on-call and recommended him be admitted for pain control and they will see him as a consultation. He was started on dexamethasone. Initial labs showed a white blood cell count of 12.5, hemoglobin 12.8, blood glucose was 220, magnesium was 1.7, CRP was less than 0.5. O
[2023-07-25 12:19] LABS: Glucose Point of Care 227 mg/dl (65-105)
[2023-07-25] MEDS: INSULIN ASPART (*BKC) 100 UNITS/ML SUB-Q ×3 (12:33→20:06)
[2023-07-25 13:52] VITALS: BP 120/45; PULSE 88; RESP 16; TEMP 36.6; O2SAT 99
[2023-07-25 17:09] LABS: Glucose Point of Care 237 mg/dl (65-105)
[2023-07-25 17:10] VITALS: PULSE 88
[2023-07-25] MEDS: FENOFIBRATE 160 MG TABLET PO (17:10)
[2023-07-25] MEDS: METOPROLOL SUCCINATE EXT REL 50 MG TABCR PO (17:10)
[2023-07-25 19:41] VITALS: BP 123/53; PULSE 82; RESP 18; TEMP 36.2; O2SAT 97
[2023-07-25] MEDS: DOCUSATE SODIUM 100 MG CAPSULE PO (20:10)
[2023-07-25 21:11] LABS: Glucose Point of Care 271 mg/dl (65-105)
[2023-07-26] MEDS: dexAMETHasone SOD PHOS INJ 10 MG/ML 1 ML VIAL IV PUSH ×4 (00:09→17:33)
[2023-07-26] MEDS: HYDROcodone/acetaminophen (*CRX) 10-325 MG TABLET 1 TAB PO ×4 (03:21→20:43)
[2023-07-26 04:30] VITALS: BP 139/50; PULSE 69; RESP 16; TEMP 36.1; O2SAT 94
[2023-07-26 05:28] LABS: Basophils Percent Auto 0.1 % (0.2-1.2); Hemoglobin 12.3 g/dL (14.0-18.0); Immature Granulocyte Absolute 0.13 K/mm3 (0.00-0.031); Immature Granulocyte Percent A 0.8 % (0-0.5); Lymphocytes Absolute Auto 1.87 K/mm3 (0.9-3.2); Lymphocytes Percent Auto 11.1 % (18.3-44.2); Mean Corpuscular HGB Conc 32.4 g/dl (32-36); Mean Corpuscular Hemoglobin 29.1 pg (26-34); Mean Platelet Volume 10.7 fl (7.4-10.4); Monocytes Absolute Auto 0.9 K/mm3 (0.1-0.6); Monocytes Percent Auto 5.4 % (2.6-8.5); Neutrophils Absolute Auto 13.9 K/mm3 (1.3-6.7); Neutrophils Percent Auto 82.6 % (45.5-73.1); Platelet Count Result 283 k/mm3 (150-375); Red Blood Count 4.22 M/mm3 (4.6-6.20); Red Cell Distribution Width 14.8 % (11.5-14.5); White Blood Count 16.8 K/mm3 (4.5-10.0)
[2023-07-26] MEDS: polyethylene glycoL 3350 17 GM POWD.PACK PO ×2 (05:33→20:43)
[2023-07-26 05:41] LABS: Alanine Aminotransferase 27 U/L (6-50); Albumin Level 3.6 g/dL (3.5-5.1); Alkaline Phosphatase 68 U/L (38-126); Anion Gap 5 mmol/L (4-12); Aspartate Amino Transferase 33 U/L (17-59); Bilirubin,Total 0.7 mg/dL (0.2-1.3); Blood Urea Nitrogen 38 mg/dL (9-20); Calcium 8.9 mg/dL (8.4-10.2); Carbon Dioxide 28 mmol/L (22-30); Chloride 102 mmol/L (98-107); Estimated CRCL calculation 57 ml/min; Estimated Glomerular Filt Rate > 60; Glucose 200 mg/dL (65-110); Potassium 4.3 mmol/L (3.4-5.0); Sodium 135 mmol/L (137-145)
--- NOTE | 2023-07-26 07:48 | P.PNIM_ITS ---
Progress Note: A&P Assessment and Plan (1) Acute exacerbation of chronic low back pain: Code(s): M54.50 - Low back pain, unspecified; G89.29 - Other chronic pain Status: Acute Assessment and Plan: 07/23/23: * Start dexamethasone * Continue Lyrica 75 mg b.i.d. * Lidocaine patch ordered daily * Continue [place] 1 tab Q 6 hour p.r.n. pain * Continue Celebrex 100 mg b.i.d. * Neurosurgery to see patient today 07/24/23: * Continue dexamethasone * Increase Lyrica to 75 mg t.i.d. * Increase [place] to 10 mg/325 mg * Continue Celebrex and lidocaine patch * Neurosurgery following * PT and OT * Echo ordered for cardiac clearance. 07/25/23: * Continue dexamethasone * Continue with current pain regimen * Neurosurgery following * Continue PT and OT * Echo obtained and results are pending 07/26/23: * Day 4 of 5 of dexamethasone * Continue with current pain management regimen * Continue PT and OT * Case Management is following for discharge planning * Echo performed which shown a low normal left ventricular systolic function wi th an estimated EF of 50-55%, right ventricular systolic function is normal. (2) Left lumbar radiculopathy: Code(s): M54.16 - Radiculopathy, lumbar region Status: Acute Assessment and Plan: 07/23/23: * Outside hospital MRI of the lumbar spine without contrast revealed multilevel and postsurgical degenerative changes in the lower thoracic and lumbar spine contributing to varying degrees of spinal canal and foraminal stenosis, L2-L3 mild disc bulge. * Neurosurgery consulted * Continue pain control with [place], Lyrica, Celebrex, lidocaine patch, dexamethasone (see above plan of care) * PT and OT to eval and treat after neurosurgical consult 07/24/23: * Will increase his Lyrica to 75 mg t.i.d. * Increase [place] to 10/325 * Continue dexamethasone, Celebrex, lidocaine patch * Neurosurgery following 07/25/23: * No change to current treatment plan (3) Hypertension: Code(s): I10 - Essential (primary) hypertension Status: Chronic Assessment and Plan: 07/23/23: * Blood pressure ranging 125/71 to 135/64 * Continue metoprolol extended release 50 mg at night 07/24/23: * Continue with current treatment plan (4) Type 2 diabetes mellitus: Code(s): E11.9 - Type 2 diabetes mellitus without complications Status: Chronic Assessment and Plan: 07/23/23: * Blood sugars ranging 160-220 * Last hemoglobin A1c 7.0 on 06/07/23 * Accu-Cheks AC and HS * Low-dose sliding scale insulin ordered will switch to mid-dose SSI today considering the use of steroids, may need further adjustments * Hypoglycemic protocol in place 07/24/23: * Blood sugars 121-220 * Will increase to moderate dose sliding scale 07/25/23: * Blood sugars ranging 190-219 * Will increase to a high dose sliding scale insulin today 07/26/23: * Blood sugars ranging 200-271 * Patient already on high-dose sliding scale insulin * Will give 8 of Lantus tonight (5) Hyperlipidemia: Code(s): E78.5 - Hyperlipidemia, unspecified Status: Chronic Assessment and Plan: 07/23/23: * Continue aspirin and fenofibrate 07/24/23: * No change to current treatment plan Time Spent With Patient Time with patient: 25 - 35 minutes Subjective Date/time seen: 07/26/23 07:48 Interval history: 07/23/23: This is an 78-year-old male presented to the hospital on 07/22/2023 with complaints of worsening back pain. Patient was recently admitted to the hospital ba
--- NOTE | 2023-07-26 07:48 | PM.IMPN ---
Progress Note: A&P Assessment and Plan (1) Acute exacerbation of chronic low back pain: Code(s): M54.50 - Low back pain, unspecified; G89.29 - Other chronic pain Status: Acute Assessment and Plan: 07/23/23: Start dexamethasone Continue Lyrica 75 mg b.i.d. Lidocaine patch ordered daily Continue [place] 1 tab Q 6 hour p.r.n. pain Continue Celebrex 100 mg b.i.d. Neurosurgery to see patient today 07/24/23: Continue dexamethasone Increase Lyrica to 75 mg t.i.d. Increase [place] to 10 mg/325 mg Continue Celebrex and lidocaine patch Neurosurgery following PT and OT Echo ordered for cardiac clearance. 07/25/23: Continue dexamethasone Continue with current pain regimen Neurosurgery following Continue PT and OT Echo obtained and results are pending 07/26/23: Day 4 of 5 of dexamethasone Continue with current pain management regimen Continue PT and OT Case Management is following for discharge planning Echo performed which shown a low normal left ventricular systolic function with an estimated EF of 50-55%, right ventricular systolic function is normal. (2) Left lumbar radiculopathy: Code(s): M54.16 - Radiculopathy, lumbar region Status: Acute Assessment and Plan: 07/23/23: Outside hospital MRI of the lumbar spine without contrast revealed multilevel and postsurgical degenerative changes in the lower thoracic and lumbar spine contributing to varying degrees of spinal canal and foraminal stenosis, L2-L3 mild disc bulge. Neurosurgery consulted Continue pain control with [place], Lyrica, Celebrex, lidocaine patch, dexamethasone (see above plan of care) PT and OT to eval and treat after neurosurgical consult 07/24/23: Will increase his Lyrica to 75 mg t.i.d. Increase [place] to 10/325 Continue dexamethasone, Celebrex, lidocaine patch Neurosurgery following 07/25/23: No change to current treatment plan (3) Hypertension: Code(s): I10 - Essential (primary) hypertension Status: Chronic Assessment and Plan: 07/23/23: Blood pressure ranging 125/71 to 135/64 Continue metoprolol extended release 50 mg at night 07/24/23: Continue with current treatment plan (4) Type 2 diabetes mellitus: Code(s): E11.9 - Type 2 diabetes mellitus without complications Status: Chronic Assessment and Plan: 07/23/23: Blood sugars ranging 160-220 Last hemoglobin A1c 7.0 on 06/07/23 Accu-Cheks AC and HS Low-dose sliding scale insulin ordered will switch to mid-dose SSI today considering the use of steroids, may need further adjustments Hypoglycemic protocol in place 07/24/23: Blood sugars 121-220 Will increase to moderate dose sliding scale 07/25/23: Blood sugars ranging 190-219 Will increase to a high dose sliding scale insulin today 07/26/23: Blood sugars ranging 200-271 Patient already on high-dose sliding scale insulin Will give 8 of Lantus tonight (5) Hyperlipidemia: Code(s): E78.5 - Hyperlipidemia, unspecified Status: Chronic Assessment and Plan: 07/23/23: Continue aspirin and fenofibrate 07/24/23: No change to current treatment plan Time Spent With Patient Time with patient: 25 - 35 minutes Subjective Date/time seen: 07/26/23 07:48 Interval history: 07/23/23: This is an 78-year-old male presented to the hospital on 07/22/2023 with complaints of worsening back pain. Patient was recently admitted to the hospital back in May with an acute exacerbation of his back pain was sent to [facility] for rehab. He had an MRI done at [facility] which shown mild disc bulge between L2-L3, multilevel and postsurgical degenerative changes in the lower thoracic and lumbar spine contributing to varying degrees of spinal canal and foraminal stenosis. states that he was not improved at rehab and he was discharged home yesterday however it took a few people to get him in the car and was not able to get up out of the bed since being h
[2023-07-26 08:23] LABS: Glucose Point of Care 185 mg/dl (65-105)
[2023-07-26] MEDS: CELECOXIB 100 MG CAPSULE PO ×2 (09:25→17:31)
[2023-07-26] MEDS: OPTI-GEN TAB 1 TABLET PO ×2 (09:25→17:31)
[2023-07-26] MEDS: LORATADINE/PSEUDOEPHEDRINE (*CRX) 10/240 MG TABLET ER 24 HR 1 TAB PO (09:25)
[2023-07-26] MEDS: PANTOPRAZOLE 40 MG TABLET PO (09:25)
[2023-07-26] MEDS: PREGABALIN (*CRX) 75 MG CAPSULE PO ×3 (09:25→17:31)
[2023-07-26] MEDS: CHOLECALCIFEROL 1,000 UNITS TABLET 1000 UNITS PO (09:25)
[2023-07-26] MEDS: MAGNESIUM OXIDE 400 MG TABLET PO (09:25)
[2023-07-26] MEDS: DOCUSATE SODIUM 100 MG CAPSULE PO ×2 (09:25→20:43)
[2023-07-26] MEDS: ASPIRIN 81 MG ENTERIC TABLET PO (09:25)
[2023-07-26] MEDS: LIDOCAINE 5% PATCH 2 PATCH TRANSDERM (09:26)
[2023-07-26 11:51] LABS: Glucose Point of Care 186 mg/dl (65-105)
[2023-07-26 14:57] VITALS: BP 139/59; PULSE 84; RESP 16; TEMP 36.8; O2SAT 96
[2023-07-26 17:07] LABS: Glucose Point of Care 226 mg/dl (65-105)
[2023-07-26 17:32] VITALS: PULSE 80
[2023-07-26] MEDS: FENOFIBRATE 160 MG TABLET PO (17:32)
[2023-07-26] MEDS: METOPROLOL SUCCINATE EXT REL 50 MG TABCR PO (17:32)
[2023-07-26] MEDS: INSULIN ASPART (*BKC) 100 UNITS/ML SUB-Q ×2 (17:34→21:19)
--- NOTE | 2023-07-26 18:53 | WPDNEUROSGPN ---
Progress Note: A&P Assessment and Plan (1) Left lumbar radiculopathy: Code(s): M54.16 - Radiculopathy, lumbar region Status: Acute Plan Mr. Borjas is an 78-year-old male with history of previous non-instrumented fusion and decompressions who presents with intractable left leg pain since April. He is having difficulty caring for himself at home due to his pain. He is neurologically intact. He has a recent MRI performed at [facility] which I mentioned in my last note. I agree with Dr. Rodriguez that it would be helpful to have a CT myelogram for decision making in his case. He is now amenable to having a myelogram. This apparently cannot be done at [facility], so we would have to arrange for this as an outpatient. I will see him in clinic once the myelogram is complete to discuss next steps. In the mean time, he should talk with Dr. Del Rio on Monday about other options for injections in the meantime. Subjective Date/time seen: 07/26/23 18:54 Interval history: Somewhat improved over the last couple days but is frustrated that therapy is forcing him to do certain activities before having pain medications or in his own time. He described left radicular leg pain since April which radiates down the lateral aspect of the leg into the top of the foot. He has severe pain with sitting in particular and a severe focal pain in the buttock when doing so. He has some back pain, but his leg is much more bothersome. He unfortunately did not get any improvement from the L4-5 AMY or from two L5-S1 AMY, even on a temporary basis. Review of Systems Review of Systems: All systems reviewed & are unremarkable except as noted in HPI and below Exam Narrative: General: -Well developed and well nourished. No acute distress. Cooperative with exam. Mental status: -Awake and oriented to person, place, and time. Integumentary: -No obvious skin lesions or masses Motor: -Muscle tone normal without spasticity of flaccidity. No atrophy. No fasciculations. -Right lower extremity: iliopsoas 5/5, quadriceps 5/5, hamstrings 5/5, tibialis anterior 5/5, gastroc-soleus 5/5, EHL 5/5 -Left lower extremity: iliopsoas 5/5, quadriceps 5/5, hamstrings 5/5, tibialis anterior 5/5, gastroc-soleus 5/5, EHL 5/5 Sensory: -Intact to light touch throughout -Normal proprioception throughout Objective Data Vital Signs Vital Signs: Vital Signs - 24 hr 07/25/23 19:41 07/25/23 20:00 07/26/23 04:30 Temperature 97.1 F L 97.0 F L Pulse Rate 82 69 Respiratory Rate 18 16 Blood Pressure 123/53 L 139/50 L Pulse Oximetry 97 94 Oxygen Delivery Room Air 07/26/23 09:10 07/26/23 14:57 07/26/23 17:32 Temperature 98.3 F Pulse Rate 84 80 Respiratory Rate 16 Blood Pressure 139/59 L Pulse Oximetry 96 Oxygen Delivery Room Air Intake/Output Intake/Output: Intake & Output 07/23/23 07/24/23 07/25/23 07/26/23 23:59 23:59 23:59 23:59 Intake Total 830 4362 396 1577 Output Total 1100 1100 800 450 Balance -270 20 0 600 Meds/Results Medications: Active Medications Generic Name Dose Route Start Last Admin Trade Name Freq PRN Reason Stop Dose Admin Acetaminophen 650 mg 07/22/23 19:22 07/23/23 05:11 Acetaminophen 325 Mg Tablet PO 650 mg Q4H PRN Administration Mild Pain (1-3) or Fever Hydrocodone Bitart/Acetaminophen 1 tab 07/24/23 08:00 07/26/23 14:33 Hydrocodone/Acetaminophen (*Crx) 10-325 Mg Tablet PO 1 tab Q6H JOY Administration Aspirin 81 mg 07/23/23 09:00 07/26/23 09:25 Aspirin 81 Mg Enteric Tablet PO 81 mg DAILY JOY Administration Celecoxib 100 mg 07/23/23 08:00 07/26/23 17:31 Celecoxib 100 Mg Capsule PO 100 mg BIDWM JOY Administration Dexamethasone Sodium Phosphate 10 mg 07/22/23 18:25 07/26/23 17:33 Dexamethasone Sod Phos Inj 10 Mg/Ml 1 Ml Vial 0.15 mg/kg (10 mg) 10 mg IV PUSH Administration Q6HR JOY Dextrose 12.5 gm 07/25/23 11:07 Dextrose 50%
[2023-07-26 19:31] VITALS: BP 128/58; PULSE 82; RESP 18; TEMP 36.7; O2SAT 96
[2023-07-26 20:14] LABS: Glucose Point of Care 262 mg/dl (65-105)
[2023-07-26] MEDS: INSULIN GLARGINE (*BKC) 100 UNITS/ML 8 UNITS SUB-Q (21:19)
[2023-07-27] MEDS: dexAMETHasone SOD PHOS INJ 10 MG/ML 1 ML VIAL IV PUSH ×4 (00:53→17:12)
[2023-07-27 05:32] LABS: Basophils Percent Auto 0.1 % (0.2-1.2); Hematocrit 37.8 % (42.0-52.0); Hemoglobin 12.6 g/dL (14.0-18.0); Immature Granulocyte Absolute 0.28 K/mm3 (0.00-0.031); Immature Granulocyte Percent A 1.6 % (0-0.5); Lymphocytes Absolute Auto 1.67 K/mm3 (0.9-3.2); Lymphocytes Percent Auto 9.6 % (18.3-44.2); Mean Corpuscular HGB Conc 33.3 g/dl (32-36); Mean Corpuscular Hemoglobin 29.9 pg (26-34); Mean Corpuscular Volume 89.6 fl (80-100); Mean Platelet Volume 10.8 fl (7.4-10.4); Monocytes Absolute Auto 1.1 K/mm3 (0.1-0.6); Monocytes Percent Auto 6.3 % (2.6-8.5); Neutrophils Absolute Auto 14.4 K/mm3 (1.3-6.7); Neutrophils Percent Auto 82.4 % (45.5-73.1); Platelet Count Result 265 k/mm3 (150-375); Red Blood Count 4.22 M/mm3 (4.6-6.20); Red Cell Distribution Width 14.7 % (11.5-14.5); White Blood Count 17.4 K/mm3 (4.5-10.0)
[2023-07-27 05:42] LABS: Alanine Aminotransferase 31 U/L (6-50); Albumin Level 3.6 g/dL (3.5-5.1); Alkaline Phosphatase 64 U/L (38-126); Anion Gap 4 mmol/L (4-12); Aspartate Amino Transferase 33 U/L (17-59); Bilirubin,Total 0.8 mg/dL (0.2-1.3); Blood Urea Nitrogen 36 mg/dL (9-20); Calcium 8.7 mg/dL (8.4-10.2); Carbon Dioxide 28 mmol/L (22-30); Chloride 101 mmol/L (98-107); Estimated CRCL calculation 57 ml/min; Estimated Glomerular Filt Rate > 60; Glucose 185 mg/dL (65-110); Potassium 4.2 mmol/L (3.4-5.0); Sodium 133 mmol/L (137-145)
[2023-07-27 06:00] VITALS: BP 129/55; PULSE 72; RESP 18; TEMP 36.5; O2SAT 97
[2023-07-27 08:00] VITALS: O2SAT 97
[2023-07-27] MEDS: ASPIRIN 81 MG ENTERIC TABLET PO (08:06)
[2023-07-27] MEDS: CHOLECALCIFEROL 1,000 UNITS TABLET 1000 UNITS PO (08:06)
[2023-07-27] MEDS: HYDROcodone/acetaminophen (*CRX) 10-325 MG TABLET 1 TAB PO ×3 (08:06→21:29)
[2023-07-27] MEDS: CELECOXIB 100 MG CAPSULE PO ×2 (08:06→17:12)
[2023-07-27] MEDS: PREGABALIN (*CRX) 75 MG CAPSULE PO ×3 (08:07→17:12)
[2023-07-27] MEDS: OPTI-GEN TAB 1 TABLET PO ×2 (08:07→17:12)
[2023-07-27] MEDS: DOCUSATE SODIUM 100 MG CAPSULE PO ×2 (08:07→21:29)
[2023-07-27] MEDS: LORATADINE/PSEUDOEPHEDRINE (*CRX) 10/240 MG TABLET ER 24 HR 1 TAB PO (08:07)
[2023-07-27] MEDS: LIDOCAINE 5% PATCH 2 PATCH TRANSDERM (08:07)
[2023-07-27] MEDS: PANTOPRAZOLE 40 MG TABLET PO (08:07)
[2023-07-27] MEDS: MAGNESIUM OXIDE 400 MG TABLET PO (08:07)
[2023-07-27 08:23] LABS: Glucose Point of Care 178 mg/dl (65-105)
--- NOTE | 2023-07-27 08:23 | P.PNIM_ITS ---
Progress Note: A&P Assessment and Plan (1) Acute exacerbation of chronic low back pain: Code(s): M54.50 - Low back pain, unspecified; G89.29 - Other chronic pain Status: Acute Assessment and Plan: 07/23/23: * Start dexamethasone * Continue Lyrica 75 mg b.i.d. * Lidocaine patch ordered daily * Continue Texline 1 tab Q 6 hour p.r.n. pain * Continue Celebrex 100 mg b.i.d. * Neurosurgery to see patient today 07/24/23: * Continue dexamethasone * Increase Lyrica to 75 mg t.i.d. * Increase Texline to 10 mg/325 mg * Continue Celebrex and lidocaine patch * Neurosurgery following * PT and OT * Echo ordered for cardiac clearance. 07/25/23: * Continue dexamethasone * Continue with current pain regimen * Neurosurgery following * Continue PT and OT * Echo obtained and results are pending 07/26/23: * Day 4 of 5 of dexamethasone * Continue with current pain management regimen * Continue PT and OT * Case Management is following for discharge planning * Echo performed which shown a low normal left ventricular systolic function with an estimated EF of 50-55%, right ventricular systolic function is normal. 07/27/23: * Continue dexamethasone for now, solu-medrol dose pack for when he discharges. Patient is on day 5 of steroids. * continue with current pain management regimen * PT and OT ordered * Case management following for discharge planning (2) Left lumbar radiculopathy: Code(s): M54.16 - Radiculopathy, lumbar region Status: Acute Assessment and Plan: 07/23/23: * Outside hospital MRI of the lumbar spine without contrast revealed multilevel and postsurgical degenerative changes in the lower thoracic and lumbar spine contributing to varying degrees of spinal canal and foraminal stenosis, L2-L3 mild disc bulge. * Neurosurgery consulted * Continue pain control with Texline, Lyrica, Celebrex, lidocaine patch, dexamethasone (see above plan of care) * PT and OT to eval and treat after neurosurgical consult 07/24/23: * Will increase his Lyrica to 75 mg t.i.d. * Increase Texline to 10/325 * Continue dexamethasone, Celebrex, lidocaine patch * Neurosurgery following 07/25/23: * No change to current treatment plan (3) Hypertension: Code(s): I10 - Essential (primary) hypertension Status: Chronic Assessment and Plan: 07/23/23: * Blood pressure ranging 125/71 to 135/64 * Continue metoprolol extended release 50 mg at night 07/24/23: * Continue with current treatment plan (4) Type 2 diabetes mellitus: Code(s): E11.9 - Type 2 diabetes mellitus without complications Status: Chronic Assessment and Plan: 07/23/23: * Blood sugars ranging 160-220 * Last hemoglobin A1c 7.0 on 06/07/23 * Accu-Cheks AC and HS * Low-dose sliding scale insulin ordered will switch to mid-dose SSI today considering the use of steroids, may need further adjustments * Hypoglycemic protocol in place 07/24/23: * Blood sugars 121-220 * Will increase to moderate dose sliding scale 07/25/23: * Blood sugars ranging 190-219 * Will increase to a high dose sliding scale insulin today 07/26/23: * Blood sugars ranging 200-271 * Patient already on high-dose sliding scale insulin * Will give 8 of Lantus tonight 07/27/23: * blood sugars ranging 178-189 * continue high-dose sliding scale * will increase Lantus to 10 units tonight (5) Hyperlipidemia: Code(s): E78.5 - Hyperlipidemia, unspecified Status: Chronic Assessment and Plan: 07/23/23: * Continue aspi
--- NOTE | 2023-07-27 08:23 | PM.IMPN ---
Progress Note: A&P Assessment and Plan (1) Acute exacerbation of chronic low back pain: Code(s): M54.50 - Low back pain, unspecified; G89.29 - Other chronic pain Status: Acute Assessment and Plan: 07/23/23: Start dexamethasone Continue Lyrica 75 mg b.i.d. Lidocaine patch ordered daily Continue Hendricks 1 tab Q 6 hour p.r.n. pain Continue Celebrex 100 mg b.i.d. Neurosurgery to see patient today 07/24/23: Continue dexamethasone Increase Lyrica to 75 mg t.i.d. Increase Hendricks to 10 mg/325 mg Continue Celebrex and lidocaine patch Neurosurgery following PT and OT Echo ordered for cardiac clearance. 07/25/23: Continue dexamethasone Continue with current pain regimen Neurosurgery following Continue PT and OT Echo obtained and results are pending 07/26/23: Day 4 of 5 of dexamethasone Continue with current pain management regimen Continue PT and OT Case Management is following for discharge planning Echo performed which shown a low normal left ventricular systolic function with an estimated EF of 50-55%, right ventricular systolic function is normal. 07/27/23: Continue dexamethasone for now, solu-medrol dose pack for when he discharges. Patient is on day 5 of steroids. continue with current pain management regimen PT and OT ordered Case management following for discharge planning (2) Left lumbar radiculopathy: Code(s): M54.16 - Radiculopathy, lumbar region Status: Acute Assessment and Plan: 07/23/23: Outside hospital MRI of the lumbar spine without contrast revealed multilevel and postsurgical degenerative changes in the lower thoracic and lumbar spine contributing to varying degrees of spinal canal and foraminal stenosis, L2-L3 mild disc bulge. Neurosurgery consulted Continue pain control with Hendricks, Lyrica, Celebrex, lidocaine patch, dexamethasone (see above plan of care) PT and OT to eval and treat after neurosurgical consult 07/24/23: Will increase his Lyrica to 75 mg t.i.d. Increase Hendricks to 10/325 Continue dexamethasone, Celebrex, lidocaine patch Neurosurgery following 07/25/23: No change to current treatment plan (3) Hypertension: Code(s): I10 - Essential (primary) hypertension Status: Chronic Assessment and Plan: 07/23/23: Blood pressure ranging 125/71 to 135/64 Continue metoprolol extended release 50 mg at night 07/24/23: Continue with current treatment plan (4) Type 2 diabetes mellitus: Code(s): E11.9 - Type 2 diabetes mellitus without complications Status: Chronic Assessment and Plan: 07/23/23: Blood sugars ranging 160-220 Last hemoglobin A1c 7.0 on 06/07/23 Accu-Cheks AC and HS Low-dose sliding scale insulin ordered will switch to mid-dose SSI today considering the use of steroids, may need further adjustments Hypoglycemic protocol in place 07/24/23: Blood sugars 121-220 Will increase to moderate dose sliding scale 07/25/23: Blood sugars ranging 190-219 Will increase to a high dose sliding scale insulin today 07/26/23: Blood sugars ranging 200-271 Patient already on high-dose sliding scale insulin Will give 8 of Lantus tonight 07/27/23: blood sugars ranging 178-189 continue high-dose sliding scale will increase Lantus to 10 units tonight (5) Hyperlipidemia: Code(s): E78.5 - Hyperlipidemia, unspecified Status: Chronic Assessment and Plan: 07/23/23: Continue aspirin and fenofibrate 07/24/23: No change to current treatment plan Time Spent With Patient Time with patient: Greater than 35 minutes Subjective Date/time seen: 07/27/23 08:23 Interval history: 07/23/23: This is an 78-year-old male presented to the hospital on 07/22/2023 with complaints of worsening back pain. Patient was recently admitted to the hospital back in May with an acute exacerbation of his back pain was sent to [facility] for rehab. He had an MRI done at [facility] which shown mil
[2023-07-27] MEDS: BISACODYL 10 MG SUPPOSITORY RECTAL (09:03)
[2023-07-27 11:51] LABS: Glucose Point of Care 189 mg/dl (65-105)
[2023-07-27] MEDS: ENOXAPARIN 40 MG/0.4 ML SYRINGE SUB-Q (13:14)
[2023-07-27 14:00] VITALS: BP 136/63; PULSE 84; RESP 14; TEMP 37.2; O2SAT 95
[2023-07-27 17:03] LABS: Glucose Point of Care 223 mg/dl (65-105)
[2023-07-27 17:12] VITALS: PULSE 80
[2023-07-27] MEDS: FENOFIBRATE 160 MG TABLET PO (17:12)
[2023-07-27] MEDS: METOPROLOL SUCCINATE EXT REL 50 MG TABCR PO (17:12)
[2023-07-27] MEDS: INSULIN ASPART (*BKC) 100 UNITS/ML SUB-Q ×2 (17:13→21:37)
[2023-07-27] MEDS: INSULIN GLARGINE (*BKC) 100 UNITS/ML 10 UNITS SUB-Q (21:37)
[2023-07-27 21:48] VITALS: BP 135/54; PULSE 79; RESP 17; TEMP 36.6; O2SAT 97
[2023-07-27 22:05] VITALS: O2SAT 97
[2023-07-28 04:58] LABS: Basophils Percent Auto 0.2 % (0.2-1.2); Hematocrit 38.6 % (42.0-52.0); Hemoglobin 12.9 g/dL (14.0-18.0); Immature Granulocyte Absolute 0.27 K/mm3 (0.00-0.031); Immature Granulocyte Percent A 1.4 % (0-0.5); Lymphocytes Absolute Auto 3.82 K/mm3 (0.9-3.2); Lymphocytes Percent Auto 19.3 % (18.3-44.2); Mean Corpuscular HGB Conc 33.4 g/dl (32-36); Mean Corpuscular Hemoglobin 29.9 pg (26-34); Mean Corpuscular Volume 89.6 fl (80-100); Mean Platelet Volume 10.6 fl (7.4-10.4); Monocytes Absolute Auto 1.9 K/mm3 (0.1-0.6); Monocytes Percent Auto 9.6 % (2.6-8.5); Neutrophils Absolute Auto 13.8 K/mm3 (1.3-6.7); Neutrophils Percent Auto 69.5 % (45.5-73.1); Platelet Count Result 290 k/mm3 (150-375); Red Blood Count 4.31 M/mm3 (4.6-6.20); Red Cell Distribution Width 14.5 % (11.5-14.5); White Blood Count 19.8 K/mm3 (4.5-10.0)
[2023-07-28 05:10] LABS: Alanine Aminotransferase 31 U/L (6-50); Albumin Level 3.5 g/dL (3.5-5.1); Alkaline Phosphatase 53 U/L (38-126); Anion Gap 3 mmol/L (4-12); Aspartate Amino Transferase 28 U/L (17-59); Blood Urea Nitrogen 35 mg/dL (9-20); Calcium 8.9 mg/dL (8.4-10.2); Carbon Dioxide 30 mmol/L (22-30); Chloride 101 mmol/L (98-107); Estimated CRCL calculation 57 ml/min; Estimated Glomerular Filt Rate > 60; Glucose 123 mg/dL (65-110); Potassium 4.1 mmol/L (3.4-5.0); Sodium 134 mmol/L (137-145)
[2023-07-28 06:00] VITALS: BP 149/69; PULSE 77; RESP 16; TEMP 36.3; O2SAT 99
[2023-07-28] MEDS: dexAMETHasone SOD PHOS INJ 10 MG/ML 1 ML VIAL IV PUSH ×2 (06:37→13:17)
[2023-07-28 08:58] LABS: Glucose Point of Care 134 mg/dl (65-105)
[2023-07-28] MEDS: PREGABALIN (*CRX) 75 MG CAPSULE PO ×2 (10:41→13:18)
[2023-07-28] MEDS: ASPIRIN 81 MG ENTERIC TABLET PO (10:41)
[2023-07-28] MEDS: CELECOXIB 100 MG CAPSULE PO (10:41)
[2023-07-28] MEDS: CHOLECALCIFEROL 1,000 UNITS TABLET 1000 UNITS PO (10:41)
[2023-07-28] MEDS: DOCUSATE SODIUM 100 MG CAPSULE PO (10:45)
[2023-07-28] MEDS: PANTOPRAZOLE 40 MG TABLET PO (10:45)
[2023-07-28] MEDS: ENOXAPARIN 40 MG/0.4 ML SYRINGE SUB-Q (10:45)
[2023-07-28] MEDS: MAGNESIUM OXIDE 400 MG TABLET PO (10:45)
[2023-07-28] MEDS: OPTI-GEN TAB 1 TABLET PO (10:45)
[2023-07-28] MEDS: LIDOCAINE 5% PATCH 2 PATCH TRANSDERM (10:48)
[2023-07-28] MEDS: HYDROcodone/acetaminophen (*CRX) 10-325 MG TABLET 1 TAB PO (10:53)
[2023-07-28 12:00] LABS: Glucose Point of Care 207 mg/dl (65-105)
[2023-07-28] MEDS: INSULIN ASPART (*BKC) 100 UNITS/ML SUB-Q (13:17)
[2023-07-28 14:00] VITALS: BP 131/54; PULSE 84; RESP 21; TEMP 36.6; O2SAT 97
--- NOTE | 2023-07-28 15:58 | PM.DS ---
DS: Admitting Diagnosis Discharge Date 07/28/23 Admitting Diagnosis Acute exacerbation of chronic low back pain Left lumbar radiculopathy Hypertension Type 2 diabetes mellitus DS: Discharge Diagnosis Discharge Diagnosis (1) Acute exacerbation of chronic low back pain: Code(s): M54.50 - Low back pain, unspecified; G89.29 - Other chronic pain Status: Acute (2) Left lumbar radiculopathy: Code(s): M54.16 - Radiculopathy, lumbar region Status: Acute (3) Hypertension: Code(s): I10 - Essential (primary) hypertension Status: Chronic (4) Type 2 diabetes mellitus: Code(s): E11.9 - Type 2 diabetes mellitus without complications Status: Chronic (5) Hyperlipidemia: Code(s): E78.5 - Hyperlipidemia, unspecified Status: Chronic DS: Summary Hospital Course Reason for hospitalization: Acute exacerbation of chronic low back pain Left lumbar radiculopathy Hypertension Type 2 diabetes mellitus Hospital Course: 07/23/23: This is an 78-year-old male presented to the hospital on 07/22/2023 with complaints of worsening back pain.? Patient was recently admitted to the hospital back in May with an acute exacerbation of his back pain was sent to [facility] for rehab.? He had an MRI done at [facility] which shown mild disc bulge between L2-L3, multilevel and postsurgical degenerative changes in the lower thoracic and lumbar spine contributing to varying degrees of spinal canal and foraminal stenosis.? states that he was not improved at rehab and he was discharged home yesterday however it took a few people to get him in the car and was not able to get up out of the bed since being home.? He was reporting sharp and shooting pain in the low back radiating to the left buttock and down the side of the leg.? The ED physician spoke with Neurosurgery on-call and recommended him be admitted for pain control and they will see him as a consultation.? He was started on dexamethasone.? Initial labs showed a white blood cell count of 12.5, hemoglobin 12.8, blood glucose was 220, magnesium was 1.7, CRP was less than 0.5. On examination today patient is alert oriented x3 lying in the bed.? He denies any fever, chills, nausea, vomiting, diarrhea, abdominal pain, chest pain, shortness a breath, headache, lightheadedness, dizziness.? He endorses sharp shooting pain that is intermittent and radiates down his left leg to his ankle.? He rates his pain as 10/10 when it hits them however right now he is only having mild pain.? Neurosurgery to see patient today.? We will continue with dexamethasone and his normal pain regimen for now. 07/24/23: Patient denies any new complaints today. White blood cell count 20.6 today likely due to the use of steroids, hemoglobin 11.9, sodium 134, blood sugar was 201-227.? We went ahead and increased his dose of Lyrica to a g t.i.d. and increased his pain medication [place] 10/325.? He will continue on his Celebrex, lidocaine patch, and dexamethasone.? PT and OT will evaluate today. Patient became very tearful in the room when discussing his disabilities and how the pain has affected his life. I offered the patient some depression medication such as Cymbalta or amitriptyline which has the benefits of helping with pain. Patient did not want to try these right now. He states it makes him feel better just to talk about it. We will go ahead and get an Echo today for cardiac clearance for upcoming procedures while inpatient. 07/25/23: Labs today revealed White blood cell count 18.2, hemoglobin 12.9, sodium 136, blood sugars ranging 190-219.? Patient will continue with PT and OT today and will continue with pain regimen.? Echo was obtained and is pending.? Case management following for discharge needs. 07/26/23: Patient states that he is feeling much better with the use of the dexamethasone.? This is day 4 out of 5 for the dexamethasone.? We will transition to a Solu-Medrol Dosepak tomorrow.? He was abl
[2023-07-28 16:56] LABS: Glucose Point of Care 169 mg/dl (65-105)
[2023-07-28 20:46] LABS: Glucose Point of Care 246 mg/dl (65-105)
== END 2023-07-28 19:00 | DRG 552 ==
LOC: ANHED 19:32 → ANH2MED 19:50
PROVIDERS: Physician Assistant; Admitting Provider Internal Medicine; Emergency Provider Emergency Medicine; PCP Physician Assistant; Visit Provider Nurse Practitioner Acute Care
DX: M54.16 Radiculopathy, lumbar region (principal); M48.061 Spinal stenosis, lumbar region without neurogenic claudication; M54.50 Low back pain, unspecified; G89.29 Other chronic pain; I10 Essential (primary) hypertension; I25.10 Atherosclerotic heart disease of native coronary artery without angina pectoris; J44.9 Chronic obstructive pulmonary disease, unspecified; E78.5 Hyperlipidemia, unspecified; E11.9 Type 2 diabetes mellitus without complications; K21.9 Gastro-esophageal reflux disease without esophagitis; H35.30 Unspecified macular degeneration; F32.A Depression, unspecified; Z79.82 Long term (current) use of aspirin; Z86.711 Personal history of pulmonary embolism; Z95.0 Presence of cardiac pacemaker; Z98.1 Arthrodesis status
CPT/HCPCS: 36415; 80048; 80053; 82948; 83735; 85025; 85027; 86140; 93306; 96374; 96375; 96376; 97110; 97116; 97161; 97165; 97530; 97535; 99285; A9270; G0378; J1100; J1170; J1650; J1815; J2405

== ENCOUNTER 2023-11-13 08:05 | Outpatient (CLI) | payer MEDICARE, SELFPAY ==
[2023-11-13 14:35] LABS: Hematocrit 37.2 % (42.0-52.0); Hemoglobin 11.9 g/dL (14.0-18.0); Mean Corpuscular Hemoglobin 29.8 pg (26-34); Mean Corpuscular Volume 93.2 fl (80-100); Mean Platelet Volume 10.5 fl (7.4-10.4); Platelet Count Result 233 k/mm3 (150-375); Red Blood Count 3.99 M/mm3 (4.6-6.20); Red Cell Distribution Width 13.9 % (11.5-14.5); White Blood Count 10.5 K/mm3 (4.5-10.0)
[2023-11-13 14:42] LABS: Add Urine Microscopic? NO; Appearance Urine Clear (Clear); Bilirubin Urine Negative (Negative); Blood Urine Negative (Negative); Color Urine Yellow (Yellow); Glucose Urine UA Negative (Negative); Ketones Urine Negative (Negative); Leukocyte Esterase Ur Negative LEU/UL (Negative); Nitrate Urine Negative (Negative); Protein Urine Negative (Negative); Specific Grav Ur 1.014 (1.001-1.035); Urobilinogen Urine 0.2 mg/dL (<2.0)
[2023-11-13 14:50] LABS: Anion Gap 10 mmol/L (4-12); Blood Urea Nitrogen 30 mg/dL (9-20); Calcium 8.8 mg/dL (8.4-10.2); Carbon Dioxide 29 mmol/L (22-30); Chloride 102 mmol/L (98-107); Estimated Glomerular Filt Rate 58; Glucose 154 mg/dL (65-110); Sodium 141 mmol/L (137-145)
[2023-11-13 14:54] LABS: Prothrombin Time 13.9 Seconds (11.1-14.7)
[2023-11-13 14:55] LABS: Partial Thromboplastin Time 28.6 Seconds (22.3-36.8)
== END 2023-11-13 08:06 | disposition home or self-care (01) ==
LOC: ANHSURGERY 11-14 08:51 → ANHLAB 11-29 13:23
PROVIDERS: PCP Physician Assistant; Visit Provider Neurological Surgery
DX: Z01.818 Encounter for other preprocedural examination (principal); M54.16 Radiculopathy, lumbar region
CPT/HCPCS: 36415; 80048; 81003; 85027; 85610; 85730; A9270

== ENCOUNTER 2023-11-15 00:19 | Day surgery (SDC) | payer MEDICARE, SELFPAY ==
[2023-11-09 09:37] VITALS: BMI 25.4
--- NOTE | 2023-11-09 10:12 | PC.NURSE ---
Report to the Outpatient Waiting Room, entrance under the green pavilion located off [facility], at time __6:00AM_ on date __11/15/23 . Planned Procedure Time: ___7:30AM .? Time changes happen often and if your time is changed the preop area will call you the afternoon before. - You and your visitor will be asked to self-screen and do not enter if you have any COVID symptoms. Please call surgeon if you need to reschedule. - A mask is optional within the hospital at this time. Patients may have clear liquids (water, carbonated beverages, clear teas, apple juice) until 3 hours prior to surgery with a maximum of 20 ounces. - No food from midnight until time of surgery and no smoking. Take only the following medications with a SIP of water on the morning of surgery: ____HYDROCODONE NEEDED DO NOT STOP ANY OF YOUR OTHER PRESCRIPTION MEDICATIONS PRIOR TO SURGERY EXCEPT THE FOLLOWING Medications to discontinue per physician HOLD ALL VITAMINS/SUPPLEMENTS 3 DAYS PRE-OP PER ANESTHESIA____ Date to take last dose 11/11/23 Please no make-up, nail german, hairspray, perfume, deodorant, or body powder the day of surgery.? No jewelry (including any body piercings) or valuables the day of surgery, leave them at home.? Please take a shower or bath the night before, or the morning of, surgery with an antibacterial soap.? Wear comfortable, loose fitting clothing.? - Jewelry must be removed prior to entering the operating room.? Rings and piercings that are not removed may be cut off. - The hospital will not accept responsibility for valuables.? - Please leave all valuables, including medications, at home the day of surgery. If you are going home after surgery, a licensed rivet driver must drive you home.? - NO public transportation without another adult if you receive anesthesia. - We recommend that an adult stay with you for 24 hours following discharge. - We also recommend that you do not drive, make important decision, drink alcoholic beverages, or take any drugs that were not prescribed by your health care provider for at least 24 hours after your discharge time. Follow any additional instructions given to you from your surgeon. Telephone instructions given to ____PATIENT and asked if any additional questions and then verbalized understanding. Patient advised to call surgeon office or pre surgery nurse liaison [phone] if any additional questions.
[2023-11-15] VITALS (13 sets, daily range): BP systolic 120–148; BP diastolic 47–70; PULSE 73–91; RESP 10–18; TEMP 36.1–37; O2SAT 96–100; BMI 25.4
--- NOTE | ~2023-11-15 | XR_ITS ---
EXAMINATION: XR fluoroscopy no charge DATE: 11/15/2023 10:45 INDICATION: Left L4-L5 hemilaminectomy TECHNIQUE: 3 fluoroscopic images of the lumbar spine were obtained during procedure performed by Dr. Faulkner. Radiologist was not present for the imaging or procedure. The amount of fluoroscopy time use d during this procedure was 0.1 minutes. Total DAP was 0.0569 mGym^2. COMPARISON: None. FINDINGS: Images demonstrate tissue retractors and lap sponge markers projecting over the soft tissues posterio r to the lower lumbar spine. The tip of a metallic probe projects over the posterior elements at L4-L 5. IMPRESSION: 1. Fluoroscopy utilized during neurosurgical procedure at the lower lumbar spine. See procedure note for further detail. Reviewed, dictated and finalized at location A. IMPRESSION: 1. Fluoroscopy utilized during neurosurgical procedure at the lower lumbar spin e. See procedure note for further detail.
[2023-11-15] MEDS: LACTATED RINGERS 1,000 ML 30 ML IV CONT ×2 (06:55→10:18)
--- NOTE | 2023-11-15 07:15 | WPDHPUPDATE1 ---
History and Physical Update Update Date/Time: 11/15/23 07:15 History and Physical has been reviewed, including an updated exam of the patient. There are NO changes in the patient's condition. Risks, benefits, and alternatives have been discussed and questions answered. Patient agrees to proceed with procedure.
--- NOTE | 2023-11-15 07:16 | WPDANESEPPF ---
Anes - Initial Pre Proc Eval Procedure: Operation Date: 11/15/23 07:30 Proposed Procedures p Left L4-5 Festus Laminectomy with Possible Microdiscectomy - Mayra Faulkner MD Date/Time: 11/15/23 07:16 Surgeon: Mayra Faulkner MD Pre Op Diagnosis: left lumbar radiculopathy Patient Data Age: 78 Gender: M Height: 1.75 m Weight: 78 kg Allergies Allergy/AdvReac Type Severity Reaction Status Date / Time meperidine Allergy Severe STOPS HIS Verified 11/15/23 07:16 HEART Tetanus Vaccines and Toxoid Allergy Intermediate Rash Verified 11/15/23 07:16 adhesive tape AdvReac Rash Verified 11/15/23 07:16 Home Medications Medication Instructions Recorded Confirmed Type fenofibrate 160 mg tablet 160 mg PO QPM 05/29/19 11/09/23 History metoprolol succinate 50 mg 50 mg PO QPM 05/29/19 11/09/23 History tablet,extended release 24 hr hydrocodone 10 mg-acetaminophen 1 tablet PO Q6H PRN Pain 07/22/23 11/09/23 History 325 mg tablet acetaminophen 500 mg capsule 1,000 mg PO Q6H PRN Pain 11/09/23 11/09/23 History bempedoic acid 180 mg tablet 180 mg PO HS 11/09/23 11/09/23 History (Nexletol) cyanocobalamin (vitamin B-12) 1,000 mcg PO DAILY 11/09/23 11/09/23 History 1,000 mcg capsule ezetimibe 10 mg tablet 10 mg PO QHS 11/09/23 11/09/23 History furosemide 20 mg tablet 20 mg PO QAM 11/09/23 11/09/23 History ibuprofen 800 mg tablet 800 mg PO TID PRN Pain 11/09/23 11/09/23 History icosapent ethyl 1 gram capsule 1 g PO BID 11/09/23 11/09/23 History (Vascepa) magnesium 500 mg tablet 15 mg PO DAILY 11/09/23 11/09/23 History omeprazole 40 mg capsule,delayed 40 mg PO QAM 11/09/23 11/09/23 History release pregabalin 75 mg capsule (Lyrica) 75 mg PO TID PRN Pain 11/09/23 11/09/23 History Patient hx anesthesia problems: none Family hx anesthesia problems: none Results Review: All pre-operative results and documents have been reviewed as part of the pre-operative evaluation. 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 Depression Gastroesophageal reflux disease Hyperlipidemia Hypertension Macular degeneration Pacemaker Pulmonary embolism Type 2 diabetes mellitus Surgical History Surgical History History of appendectomy History of cardiac catheterization December 2016 Dr. Serrano History of colonoscopy History of lumbar fusion L3-4 5 in S1 History of repair of left rotator cuff Family History Family History Mother Left bundle branch block Sibling Coronary artery disease Sister Father Cerebrovascular accident Social History Social History (Updated 07/22/23 @ 23:07 by Grace Deshpande PA-C) Social History: Surrogate medical decision maker: Gita Borjas, spouse. Code status: Full code. 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 Spiritual care concerns: No Agree to blood products: Yes Anes - Eval Final PreProcedure Day of Procedure 11/15/23 07:16 Patient weight: brody
[2023-11-15] MEDS: ceFAZolin 2 GM/D5W 50 ML 2 GM/50 ML BAG IVPB (07:35)
[2023-11-15] MEDS: BUPIVACAINE/EPINEPHRINE 0.5% 50 ML VIAL 30 ML INFILTRATE (08:29)
--- NOTE | 2023-11-15 10:19 | PM.OP ---
Procedure Note - Brief Procedure Note - Brief Date of procedure: 11/15/23 left lumbar radiculopathy Post-op diagnosis: Same Procedure performed: Left L4-5 hemilaminectomy Surgeon: Mayra Faulkner MD Paint Specialist: Maury Anesthesia: GETA Findings: Significant bone over lamina from previous fusion made identification of normal landmarks difficult. Ultimately, I removed the spinous process to better identify the midline. The dura was very thin and adherent to the ventral epidural space, so the microdiskectomy was not attempted. Estimated blood loss (mL): 25 Drains: No Packing: No Pathology: None sent Complications: None Condition: Stable Disposition: PACU
[2023-11-15] MEDS: BACITRACIN OINTMENT 15 GM TUBE 1 APPLIC TOPICAL (11:22)
[2023-11-15] MEDS: oxyCODONE HCL (*CRX) 5 MG TAB IR 10 MG PO (12:28)
--- NOTE | 2023-11-15 15:03 | W.PM.PROC2 ---
Procedure Note - Detailed Date of Procedure 11/15/23 Pre-op Diagnosis left lumbar radiculopathy Post-op Diagnosis Same Procedure Performed 1. Left L4-5 hemilaminectomy 2. Use of microscope for microsurgical dissection 3. Use of C-arm for fluoroscopy Surgeon Mayra Faulkner MD [employer] [facility] Anest[facility] General Indications Mr. Borjas is an 78-year-old male with history of left L5 lumbar radiculopathy since April for which he has physical therapy and multiple epidural steroid injections from which he did not get any relief. Although he does seem much more comfortable than when 1st came to know him, is still more pain than he can tolerate. He does seem to have developed some weakness dorsiflexion on the left since the last time I saw him. I reviewed the images with the patient and his in clinic. I have offered him surgery in the form of a left L4-5 hemilaminectomy and possible microdiskectomy. We discussed surgery in detail including risks, expected recovery, and restrictions after surgery. Risks including bleeding, infection, pain, CSF leak, nerve damage, failure to relieve symptoms, recurrent disc herniation, weakness, paresthesias, and anesthetic complications were discussed. The patient provided written informed consent to proceed. Description of Procedure The patient was brought to the operating room, and general anesthesia was induced. The patient was placed prone on the open Carlos table, and all pressure points were padded. Compression devices were placed on the patient's calves. The skin was cleaned with alcohol. The C-arm was brought onto the field to localize the appropriate disc space and assist with incisional planning. The area was prepped and draped in usual sterile fashion. A time out was conducted, and pre-operative antibiotics were administered. Local anesthesia was injected into the planned incision. A skin incision was made with a 10-blade scalpel, and dissection was carried down with the monopolar cautery to open the fascia. The left lamina of L4 was exposed. Due to the extensive amount of bone present at this level from his previous non-instrumented fusion, it was difficult to find any normal landmarks off the midline. A small space under the lamina was palpated with a currette and used to verify the L4-5 level with fluoroscopy. The drill was used to thin the excess bone above the lamina and to thin the lamina itself. Synovium was identified. Further bone medially was removed, but due to difficulty identifying normal structures, I eventually removed the spinous process in order to identify the midline. The ligamentum flavum was identified and elevated with a currette. This was removed with a kerrison. The dura was exposed to the left of midline and was noted to be very thin. The dura and nerve root were exposed and gradually freed of surrounding ligamentum and bone. I attempted to separate the dura from the ventral epidural space, but I aborted this due to adhesions and thin dura that would make dural repair exceedingly challenging if I were to encounter a durotomy. I therefore focused on removing all bone and ligament around the nerve root. I palpated along the nerve with a Woodsen, and it was noted to be decompressed. Hemostasis was achieved with Surgiflo and cottonoid patties. The area was copiously irrigated. No evidence of CSF leak was noted. The fascia was closed with 0-Vicryl in an interrupted fashion. The soft tissue was again copiously irrigated. The dermis was closed with 2-0 and 3-0 interrupted Vicryl. The skin was closed with subcuticular 4-0 monocryl. This was covered with skin glue. The patient was returned supine on the stretcher, extubated, and transferred to PACU without incident. Codes: 71327, 73790 Estimated Blood Loss 25 Urine Output 400 Drains No Packing No Pathology None sent Complications None Condition Stable Disposition PACU [facility] Billing Surgery - Charge Forward: Surgery Billing
--- NOTE | 2023-11-15 15:40 | PCPTNOTE ---
On 11/15/23, the student, [Kathie Coon], provided care and completed [facility] documentation on this patient. I have reviewed the student's documentation and agree with the findings.
[2023-11-15] MEDS: SODIUM CHLORIDE 0.9% IV 1,000 ML 100 ML IV CONT (16:21)
[2023-11-15] MEDS: PANTOPRAZOLE 40 MG TABLET PO (16:22)
[2023-11-15] MEDS: OMEGA 3 POLYUNSAT FATTY ACIDS 1 GM CAP PO (16:22)
[2023-11-15] MEDS: ceFAZolin 1 GM/NS 50 ML 1 GM/50 ML BAG IVPB ×2 (16:22→23:53)
[2023-11-15] MEDS: METOPROLOL SUCCINATE EXT REL 50 MG TABCR PO (16:24)
[2023-11-15] MEDS: oxyCODONE HCL (*CRX) 5 MG TAB IR PO ×2 (16:42→23:47)
[2023-11-15] MEDS: DOCUSATE SODIUM 100 MG CAPSULE PO (21:37)
[2023-11-15] MEDS: EZETIMIBE 10 MG TABLET PO (21:37)
[2023-11-15] MEDS: PREGABALIN (*CRX) 75 MG CAPSULE PO (23:46)
[2023-11-16 05:20] VITALS: BP 105/80; PULSE 80; RESP 18; TEMP 36.7; O2SAT 98
[2023-11-16 05:23] VITALS: BP 105/80; PULSE 80; RESP 18; TEMP 36.7; O2SAT 98
[2023-11-16] MEDS: oxyCODONE HCL (*CRX) 5 MG TAB IR PO (06:55)
[2023-11-16 08:00] VITALS: BP 130/74; PULSE 74; RESP 16; TEMP 36.8; O2SAT 98
[2023-11-16] MEDS: OMEGA 3 POLYUNSAT FATTY ACIDS 1 GM CAP PO (08:08)
[2023-11-16] MEDS: FUROSEMIDE 20 MG TABLET PO (08:08)
[2023-11-16] MEDS: ceFAZolin 1 GM/NS 50 ML 1 GM/50 ML BAG IVPB (08:08)
[2023-11-16] MEDS: PANTOPRAZOLE 40 MG TABLET PO (08:08)
[2023-11-16] MEDS: DOCUSATE SODIUM 100 MG CAPSULE PO (08:08)
--- NOTE | 2023-11-16 09:12 | PCPTNOTE ---
Attempted to see patient for PT, however patient was working with OT.
--- NOTE | 2023-11-16 10:26 | PCPTNOTE ---
Patient refused treatment this session due to low back pain. Patient reported he wanted pain medication prior to working with PT. RN aware.
[2023-11-16] MEDS: oxyCODONE HCL (*CRX) 5 MG TAB IR 10 MG PO (10:29)
--- NOTE | 2023-11-16 10:52 | WPDANESPN ---
Anes - Prog Note Post-Op Date/Time: 11/16/23 10:52 Cardiovascular status: normal Respiratory status: normal Airway patency: baseline Mental status: baseline Post-Op hydration status: normal Vital Signs: Last Vital Signs Temp 36.8 C 11/16/23 08:00 Pulse 74 11/16/23 08:00 Resp 16 11/16/23 08:00 BP 130/74 11/16/23 08:00 Pulse Ox 98 11/16/23 08:00 O2 Del Method Room Air 11/15/23 20:00 O2 Flow Rate 6 11/15/23 10:45 Pain Score (VAS): 5/10 I/O: Intake & Output 11/15/23 11/16/23 11/16/23 23:59 07:59 15:59 Intake Total 578.3 350 240 Output Total 700 150 Balance 578.3 -350 90 Post-procedural complaints: none Patient Feedback: Patient satisfied with anesthetic care.
[2023-11-16 13:20] VITALS: BP 120/70; PULSE 69; RESP 16; TEMP 36.7; O2SAT 99
--- NOTE | 2023-11-16 13:22 | WPDNEUROSGPN ---
Progress Note: A&P Assessment and Plan (1) Status post lumbar laminectomy: Code(s): Z98.890 - Other specified postprocedural states Status: Acute Plan -Discharge home today -Wound care and activity precautions reviewed at bedside -Follow up in 2 weeks Subjective Date/time seen: 11/16/23 13:22 Interval history: States he is not doing well because of surgical-site pain and lack of sleep last night but also states his leg pain has improved. He is noticing leg pain just when going from lying down to getting up, but he has no pain at rest or with walking. He is tolerating PO and voiding independently. Review of Systems Review of Systems: All systems reviewed & are unremarkable except as noted in HPI and below Exam Narrative: AOx4 Incision c/d/i Full strength lower extremities Sensation intact to light touch Objective Data Vital Signs Vital Signs: Vital Signs - 24 hr 11/15/23 14:00 11/15/23 16:30 11/15/23 21:00 Temperature 96.9 F L 98.2 F Pulse Rate 89 91 86 Respiratory Rate 16 18 18 Blood Pressure 140/68 134/53 L 122/54 L Pulse Oximetry 100 96 Oxygen Delivery 11/15/23 20:00 11/16/23 05:20 11/16/23 05:23 Temperature 98.1 F 98.1 F Pulse Rate 80 80 Respiratory Rate 18 18 Blood Pressure 105/80 105/80 Pulse Oximetry 98 98 Oxygen Delivery Room Air 11/16/23 08:00 Temperature 98.3 F Pulse Rate 74 Respiratory Rate 16 Blood Pressure 130/74 Pulse Oximetry 98 Oxygen Delivery Intake/Output Intake/Output: Intake & Output 11/13/23 11/14/23 11/15/23 11/16/23 23:59 23:59 23:59 23:59 Intake Total 928.3 640 Output Total 800 850 Balance 128.3 -210 Meds/Results Medications: Active Medications Generic Name Dose Route Start Last Admin Trade Name Freq PRN Reason Stop Dose Admin Acetaminophen 1,000 mg 11/15/23 10:22 Acetaminophen 500 Mg Tablet PO Q6H PRN Mild Pain (1-3) Al Hydrox/Mg Hydrox/Simethicone 20 ml 11/15/23 10:20 Mag Hydrox/Al Hydrox/Simeth 30 Ml Udc PO Q4H PRN Indigestion/Heartburn Bacitracin 1 applic 11/15/23 11:12 11/15/23 11:22 Bacitracin Ointment 15 Gm Tube TOPICAL 1 applic BID PRN Administration SKIN IRRIATION FROM TAPE Bisacodyl 10 mg 11/15/23 10:20 Bisacodyl 10 Mg Suppository RECTAL DAILY PRN Constipation Cyclobenzaprine HCl 10 mg 11/15/23 10:22 Cyclobenzaprine Hcl 10 Mg Tablet PO TID PRN Muscle Spasms Docusate Sodium 100 mg 11/15/23 21:00 11/16/23 08:08 Docusate Sodium 100 Mg Capsule PO 100 mg Q12HR JOY Administration Ezetimibe 10 mg 11/15/23 21:00 11/15/23 21:37 Ezetimibe 10 Mg Tablet PO 10 mg QHS JOY Administration Fish Oil 1 gm 11/15/23 17:00 11/16/23 08:08 [place] 3 Polyunsat Fatty Acids 1 Gm Cap PO 1 gm BID JOY Administration Furosemide 20 mg 11/16/23 09:00 11/16/23 08:08 Furosemide 20 Mg Tablet PO 20 mg QAM JOY Administration Cefazolin Sodium 1 gm in 50 mls @ 100 mls/hr 11/15/23 16:00 11/16/23 08:38 Ancef 1 Gm/Ns 50 Ml IVPB 11/16/23 15:59 Infused Q8H JOY Infusion Sodium Chloride 1,000 mls @ 100 mls/hr 11/15/23 10:20 11/16/23 05:32 Normal Saline Iv IV CONT Not Given .Q10H JOY Metoprolol Succinate 50 mg 11/15/23 18:00 11/15/23 16:24 Metoprolol Succinate Ext Rel 50 Mg Tabcr PO 50 mg QPM JOY Administration Miscellaneous Information 1 each 11/15/23 00:01 11/16/23 04:33 Bempedoic Acid Nonformulary, Can Patient Use From Home Or Hold Till Discharge? XX 12/15/23 00:00 Not Given CLARIFY JOY Non-Formulary Medication 180 mg 11/15/23 21:00 Bempedoic Acid [Nexletol] PO 12/15/23 20:59 HS JOY Ondansetron HCl 4 mg 11/15/23 10:20 Ondansetron Inj 4 Mg/2 Ml Vial IV PUSH Q8H PRN Nausea And Vomiting Oxycodone HCl 10 mg 11/15/23 10:22 11/16/23 10:29 Oxycodone Hcl (*Crx) 5 Mg Tab Ir PO 10 mg Q4H PRN Administration Pain Rated 7-10 Oxyco
[2023-11-16 14:00] VITALS: BP 120/70; PULSE 69; RESP 16; TEMP 36.7; O2SAT 99
== END 2023-11-16 15:20 | disposition home or self-care (01) ==
LOC: ANHSURGERY 06:08 → ANH3MEDSUR 15:06
PROVIDERS: PCP Physician Assistant; Visit Provider Neurological Surgery
PROC: (CPT 63005; principal; 2023-11-15 07:30)
DX: M54.16 Radiculopathy, lumbar region (principal); J44.9 Chronic obstructive pulmonary disease, unspecified; I44.2 Atrioventricular block, complete; I25.10 Atherosclerotic heart disease of native coronary artery without angina pectoris; I10 Essential (primary) hypertension; E78.5 Hyperlipidemia, unspecified; E11.9 Type 2 diabetes mellitus without complications; K21.9 Gastro-esophageal reflux disease without esophagitis; F32.A Depression, unspecified; H35.30 Unspecified macular degeneration; Z86.711 Personal history of pulmonary embolism; Z95.0 Presence of cardiac pacemaker; Z98.1 Arthrodesis status
CPT/HCPCS: 63030; 36415; 80048; 81003; 85027; 85610; 85730; 97116; 97161; 97165; 97530; 97535; 99199; A9270; J0330; J0690; J1100; J1170; J2371; J2704; J3010; J7030; J7120

== ENCOUNTER 2024-10-04 14:40 | Emergency (ER) | payer MEDICARE, SELFPAY ==
--- NOTE | ~2024-10-04 | XR_ITS ---
XR elbow LT min 3V Ordering provider: Wally Wade MD History: . injury . Comparison: No FINDINGS: BONES: No acute fracture or dislocation. JOINT SPACES: Mild osteoarthritic changes with osteophytes seen in the ulna. Possible opacification i n the medial collateral ligament. SOFT TISSUES: Ossification of the insertion of the triceps tendon. No definite joint effusion. Minima l elevation of the anterior fat pad may indicate subtle fracture. Follow-up advised. IMPRESSION: No definite acute osseous abnormality left elbow. Slight elevation of the anterior fat pad is seen wh ich may indicate a fracture in the area. Follow-up advised. Reviewed, dictated and finalized at location A. IMPRESSION: No definite acute osseous abnormality left elbow. Slight elevation of the anter ior fat pad is seen which may indicate a fracture in the area. Follow-up advise kisha
--- NOTE | ~2024-10-04 | XR_ITS ---
XR humerus LT Ordering provider: Wally Wade MD History: . injury . Comparison: None. FINDINGS: BONES: No acute fracture or dislocation. JOINT SPACES: Mild osteoarthritic changes of the glenohumeral joint and acromioclavicular joint. SOFT TISSUES: Normal. IMPRESSION: No definite acute osseous abnormality left humerus. Reviewed, dictated and finalized at location A.
[2024-10-04 14:42] VITALS: BP 151/58; PULSE 86; RESP 18; TEMP 36.6; O2SAT 97
--- OUTSIDE RECORDS SUMMARY | 2024-10-04 14:42 | XMS_ITS | Data Portability ---
Author Organization [facility] [employer], Main Office Address [address] [place] [address] Assessment No assessment recorded. Plan of Treatment Reminders Order Date Submit Date Provider Last Modified By Organization Details Last Modified Time Details Appointments None recorded. Lab hemoglobin A1C, fingerstic k 2024 025 [email or web address] s_g [facility], [address] [place] [address], [id number], 12:49:48 Referral registered dietitian referral - newly diagnosed Diabetic . Please instruct on diet 2000 kcal . Please call patient to schedule an appointmen t. Thank you 2024 025 RACHELE Alejandra Ms, Rdn, Ld-Dietitian, [address] [place] [address], [address], 5 15:15:27 Procedures None recorded. Surgeries None recorded. Imaging None recorded. Medication Orders metformin ER 500 mg tablet,ext ended release 24 hr 2024 025 LORI [facility] [id number], [address], 5 12:52:21 Depo-Medro l 80 mg/mL suspension for injection 2024 025 [email or web address] Not available 10:28:37 prednisone 20 mg tablet 2024 025 [email or web address] [facility] [address], [address], 5 11:40:50 ciprofloxa esme 500 mg tablet 2024 025 [email or web address] [facility] [address], [address], 5 11:40:46 Atrovent HFA 17 mcg/actuat ion aerosol inhaler 2024 025 [email or web address] [facility] [address], [address], 5 11:41:18 promethazi ne-DM 6.25 mg-15 mg/5 mL oral syrup 2024 025 [email or web address] [facility] [address], [address], 5 11:41:13 prednisone 20 mg tablet 2024 025 [email or web address] [facility] [address], [address], 5 11:40:50 Debrox 6.5 % ear drops 2023 024 [email or web address] [facility] [address], [address], 5 11:41:33 Patient TargetsNo targets recorded. Patient Instructions Encounter Date Encounter Id Patient Instructions Last Modified By Organization Details Last Modified Time 12/21/2023 [id number] dementia rating scale-2* [email or web address] Not available 12/21/2023 12:26:13 alcohol misuse* Not available 12/21/2023 12:26:19 depression screening* [email or web address] Not available 12/21/2023 12:26:30 Timed Up and Go test (TUG)* [email or web address] Not available 12/21/2023 12:26:41 multi-dimensiona l health assessment questionnaire* Not available 12/21/2023 12:26:07 Personalized a [facility] Plan and Screening Recommendations Advance Directives - Do you have one? No I have no recommendations Advance Directives - Do we have your advance directive on file in your health record? I have no recommendations Primary Prevention/Interven tion (prevents or decreases the chance of common diseases from occurring) Smoking Risk: Non Smoker I have no recommendations Alcohol Misuse Screening: Negative I have no recommendations Weight: Overweight try to lose 5% of your body weight Physical activity: Need more exercise/physical activity decrease sitting time to no more than 5hr/day Nutrition: Average Eat Heart Healthy Diet Fall Risk (screened today): High Recommend regular use of cane or walker Vaccines Pneumococcal: No further needed Influenza: Your next one in the fall of this year Chronic Disease Risks Stroke: Low Risk I have no recommendations Heart Attack: Low risk I have no recommendations Clogging of the Arteries: Low risk I have no recommendations Diabetes: Low Risk I have no recommendations Secondary Prevention/Interven tion (detects treatable diseases before they may cause symptoms, disability, or ) Prostate Cancer Screening: PSA screening necessary I have no recommendations Colon Cancer Screening: Colonoscopy No screening necessary Eye Disease Screening: No Eye exam necessary Dementia Risk: Low I have no recommendations Depression Screening: Negative I have no recommendations [email or web address] Not available 11/28/2023 15:54:23 07/17/2024 [id number] Maribeth taught him how to do fingerstick glucose test . test daily fasting , on a weekend test 2 hours after a meal [email or web address] Not available 07/17/2024 12:58:22 Reason for Referral Registered Dietitian Gladys reyes for Type 2 diabetes mellitus newly diagnosed Diabetic . Please instruct on diet 2000 kcal . Please call patient to schedule an appointment. Thank you Referring Physician: Sacha Haro, Family Medicine, Encounter Date: 07/17/2024 Results Created Date Observation Date Name Description Value Unit Range Abnormal Flag Note LastModifiedBy Organization Detail LastModifiedTime Result Notes None recorded. Problems Name Problem SNOMED Code Status Onset Date Resolution Date Notes Provider Name and Address Organization Details Recorded Time Neoplasm of skin 241559267 Active Not Available [facility] 3 00:35:27 Nocturia 704047430 Active Not Available [facility] 3 00:35:27 Constipati on 97435934 Active Not Available [facility] 3 00:35:27 Nausea present 087081469 Active Not Available [facility] 3 00:35:28 Blood glucose outside reference range 291468713 Active Not Available [facility] 3 00:35:28 Localized, primary osteoarthr itis 992884257 Active Not Available [facility] 3 00:35:28 Localized, primary osteoarthr itis of the shoulder region 516512033 Active Not Available [facility] 3 00:35:28 Chronic cholecysti tis 92306532 Active Not Available [facility] 3 00:35:28 Abdominal pain 29392685 Active Not Available [facility] 3 00:35:28 Gastroesop hageal reflux disease 600081825 Active Not Available [facility] 3 00:35:28 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 85253927 Active Not Available [facility] 3 00:35:28 Abnormal weight loss 615761067 Active Not Available [facility] 3 00:35:28 Eruption 793468399 Active Not Available [facility] 3 00:35:28 Thoracic back pain 912502518 Active Not Available [facility] 3 00:35:28 Rib pain 084376735 Active Not Available [facility] 3 00:35:28 Changing color of pigmented skin lesion 611178740 Active Not Available [facility] 3 00:35:28 Bronchitis 02075951 Active Not Available [facility] 3 00:35:28 Vitamin D deficiency 00178451 Active Not Available [facility] 3 00:35:28 Acute pharyngiti s 599092870 Active Not Available [facility] 3 00:35:28 Sinusitis 79671742 Active Not Available [facility] 3 00:35:28 Diverticul ar disease 074430888 Active Not Available [facility] 3 00:35:28 Tinea cruris 809139539 Active Not Available [facility] 3 00:35:28 Nausea 292371566 Active Not Available [facility] 3 00:35:28 Eczema 09185538 Active Not Available [facility] 3 00:35:28 Pain of shoulder region 06543642 Active Not Available [facility] 3 00:35:28 Hyperlipid emia 02169987 Active Not Available [facility] 3 00:35:28 Polyp of colon 06444398 Active Not Available [facility] 3 00:35:28 Muscle pain 58287886 Active Not Available [facility] 3 00:35:28 Cholelithi asis without obstructio n 35416643 Active Not Available [facility] 3 00:35:28 Hyperglyce kathy 01674112 Active Not Available [facility] 3 00:35:28 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 WESLY Dyer [address], [address] , [facility] 5 11:58:02 Acute sinusitis 54429883 Active 2022 Not Available [facility] 3 00:35:28 Pain in left foot 9844273633777 07 Active 2022 Not Available [facility] 3 00:35:28 Foreign body of foot 851347355 Active 2022 Not Available [facility] 3 00:35:28 COVID-19 142136589 Active 2022 Not Available [facility] 3 00:35:28 Otitis media of left ear 8169002869419 100 Active 2022 Not Available [facility] 3 00:35:27 Impacted cerumen 15993404 Active 2022 Not Available [facility] 3 00:35:28 Disorder of joint of left ankle 1829822242046 9107 Active 2022 Not Available [facility] 3 00:35:28 Left side sciatica 4664660387708 04 Active 2023 [address] Dyer [address], [address], [place], [address] , [place] [facility] 4 12:27:39 Sciatica 65992099 Active 2023 WESLY Dyer [address], [address], [place], [address] , [place] [facility] 4 10:58:41 Chronic idiopathic constipati on 80213228 Active 2023 WESLY Dyer [address], [address], [place], [address] , [place] [facility] 4 16:32:53 Osteoarthr itis of left hip joint 4812390472207 08 Active 2023 WESLY Dyer [address], [address], [place], [address] , [place] [facility] 4 13:47:59 Trochanter ic bursitis of left hip 8178730355403 03 Active 2023 WESLY Dyer [address], [address], [place], [address] , [email or web address] [place] [facility] 4 13:48:51 Administra tion of influenza vaccine Active 2023 WESLY Dyer [address], [address], [place], [address] , [place] [facility] 4 11:59:51 Wax in ear canal 854857122 Active 2023 WESLY Dyer [address], [address], [place], [address] , [place] [facility] 4 12:01:57 Screening for malignant neoplasm of prostate Active 2023 WESLY Dyer [address], [address], [place], [address] , [place] [facility] 4 15:17:34 Cough 09774963 Active 2024 WESLY Dyer [address], [address], [place], [address] , [facility] [employer] [facility] 5 15:44:57 Type 2 diabetes mellitus 06939886 Active 2024 WESLY Dyer [address], [place], [address] , [facility] [employer] [facility] 5 12:48:42 Notes:Some problems listed i n Documents: #[id number], #[id number] could not be added to this patient's chart. Please review these documents and add these problems to the patient's chart manually as needed. Problem Notes None recorded. Procedures Surgical History Date Name Laterality Status Provider Name and Address Organization Details Recorded Time 4 Medicare Wellness CPT Code, subsequent completed June JOSE Kapadia [facility] [employer] [facility] 11/28/2023 15:40:52 3 Ear Irrigation completed WESLY Dyre [address], [place], [address], [facility] [employer] [facility] 02/23/2023 12:57:27 7 Pacemaker completed Gricel Godinez [facility] [employer] 11/03/2022 11:46:21 Back Surgeries completed Not Available [facility] 05/18/2022 08:06:12 Rotator cuff surgery completed Not Available [facility] 05/18/2022 08:06:12 Imaging Results None recorded. Procedure Notes None recorded. Medical Equipment None Reported. Allergies Allergen ID Allergen Name Allergen Category Reaction Reaction Severity Criticality Documentation Date Start Date Code Code System Note Provider Name and Address Organization Details Recorded Time Trilipix medicatio n myalgias (muscle pain) Not available Not available 05/18/2022 29780 4 RxNorm Not Available [facility] 3 08:15:48 24593 tetanus and diphtheri a toxoids Not available other Not available Not available 05/18/2022 37776 UNK Not Available [facility] 3 08:15:48 99517 Demerol medicatio n other Not available Not available 05/18/2022 22587 1 RxNorm Not Available [facility] 3 08:15:48 Medications Name Sig Start Date Stop Date Status Note LastModified by Organization Details LastModified Time Prescript ion - Change active Not Available Not Available Not Available Elocon 0.1 % topical cream Apply 1 applicat ion twice a day by topical route as needed. 07/04 completed Not Available Not Available Not Available cyclobenz aprine 10 mg tablet TAKE 1 TABLET BY MOUTH THREE TIMES A DAY NEEDED FOR MUSCLE SPASMS FOR 10 DAYS active Not Available Not Available No t Available promethaz ine-DM 6.25 mg-15 mg/5 mL oral syrup Take 5 mL every 4 hours by oral route as needed for 10 days. 07/17 completed Not Available Not Available Not Available prednison e 10 mg tablet 07/17 completed Not Available Not Available Not Available doxycycli ne hyclate 100 mg capsule Take 1 capsule twice a day by oral route for 10 days. 10/02 completed Not Available Not Available Not Available ciproflox acin 750 mg tablet Take 1 tablet every 12 hours by oral route with meals for 7 days. 07/05 completed Not Available Not Available Not Available ibuprofen 800 mg tablet TAKE 1 TABLET BY MOUTH THREE TIMES A DAY WITH MEALS active Not Available Not Available No t Available benzonata te 200 mg capsule Take 1 capsule 3 times a day by oral route as needed. 11/06 completed Not Available Not Available Not Available metoprolo l succinate ER 50 mg tablet,ex tended release 24 hr TAKE 1 TABLET BY MOUTH EVERY DAY active Not Available Not Available No t Available Lotrisone 1 %-0.05 % topical cream APPLY TO THE AFFECTED AND SURROUND ING AREAS OF SKIN BY TOPICAL ROUTE 2 TIMES PER DAY IN THE MORNING AND EVENING FOR 2 WEEKS 07/04 completed Not Available Not Available Not Available hydrocodo ne 5 mg-acetam inophen 325 mg tablet TAKE 1 TABLET BY MOUTH EVERY 6 HOURS NEEDED active Not Available Not Available No t Available Celestone Soluspan 6 mg/mL suspensio n for injection 05/14 completed Not Available Not Available Not Available sucralfat e 1 gram tablet TAKE 1 TABLET BY MOUTH FOUR TIMES A DAY BEFORE MEALS (30 MINUTES BEFORE MEALS AND AT BEDTIME) 2023 active Not Available Not Available Not Avai lable Elidel 1 % topical cream APPLY A THIN LAYER TO THE AFFECTED AREA(S) BY TOPICAL ROUTE ONCE DAILY ; RUB IN GENTLY AND COMPLETE LY 02/17 completed Not Available Not Available Not Available Medrol (Robert) 4 mg tablets in a dose pack Use as directed 11/03 completed Not Available Not Available Not Available prednison e 20 mg tablet PLEASE SEE ATTACHED FOR DETAILED DIRECTIO NS 07/17 completed Not Available Not Available Not Available fluoroura cil 5 % topical cream 07/04 completed Not Available Not Available Not Available Rocephin 1 gram solution for injection 05/14 completed Not Available Not Available Not Available Zithromax Z-Robert 250 mg tablet Take 2 TABLET EVERY DAY by oral route for 1 day. Than 1 tablet for 4 days 11/06 completed Not Available Not Available Not Available Diflucan 150 mg tablet Take 1 tablet every day by oral route for 1 day. 10/02 completed Not Available Not Available Not Available ciproflox acin 500 mg tablet TAKE 1 TABLET BY MOUTH EVERY 12 HOURS FOR 10 DAYS 07/17 completed Not Available Not Available Not Available Tamiflu 75 mg capsule Take 1 capsule every day by oral route for 10 days. 11/06 completed Not Available Not Available Not Available hydrocodo ne 10 mg-acetam inophen 325 mg tablet TAKE 1 TABLET BY MOUTH THREE TIMES A DAY NEEDED FOR 30 DAYS 03/28 completed Not Available Not Available Not Available omeprazol e 40 mg capsule,d elayed release TAKE 1 CAPSULE BY MOUTH EVERY DAY BEFORE MEALS (30 MINUTES BEFORE FOOD) active Not Available Not Available No t Available aspirin 81 mg tablet,de layed release Take 1 tablet every day by oral route for 30 days. 12/17 completed Not Available Not Available Not Available ondansetr on 8 mg disintegr ating tablet Place 1 tablet twice a day by translin gual route as needed for 30 days. active Not Available Not Available No t Available Depo-Medr ol 80 mg/mL suspensio n for injection Take 1 mL by injectio n route for 1 day. 2024 active Not Available Not Available Not Avai lable Kenalog 40 mg/mL suspensio n for injection Take 1 mL by injectio n route. 11/06 completed Not Available Not Available Not Available Mobic 15 mg tablet Take 1 tablet every day by oral route in the morning for 30 days. active hurt pt stomach Not Available Not Available Not Available Zofran 8 mg tablet Take 1 tablet(s ) every 8 hours by oral route for 5 days. 07/04 completed PRN Not Available Not Available Not Available amoxicill in 875 mg tablet Take 1 tablet twice a day by oral route. 07/04 completed Not Available Not Available Not Available methocarb sangeetha 750 mg tablet Take 1 tablet twice a day by oral route for 10 days. 12/14 completed Not Available Not Available Not Available triamcino lone acetonide 0.025 % topical cream APPLY A THIN LAYER TO THE AFFECTED AREA(S) BY TOPICAL ROUTE 2 TIMES PER DAY active Not Available Not Available No t Available Flagyl 500 mg tablet Take 1 tablet every 8 hours by oral route with meals for 7 days. 07/05 completed Not Available Not Available Not Available hydrocodo ne 7.5 mg-acetam inophen 325 mg tablet Take 1 tablet every 6 hours by oral route as directed for 30 days. 07/04 completed Not Available Not Available Not Available cephalexi n 500 mg capsule 02/20 completed Not Available Not Available Not Available Daypro 600 mg tablet Take 1 tablet every day by oral route as directed for 30 days. active Not Available Not Available No t Available pantopraz ole 40 mg tablet,de layed release TAKE 1 TABLET BY MOUTH EVERY DAY 30 MINUTES BEFORE A MEAL active Not Available Not Available No t Available Ear Drops (carbamid e peroxide) 6.5 % INSTILL 10 DROPS IN THE AFFECTED EAR(S) ONCE DAILY 07/17 completed Not Available Not Available Not Available furosemid e 20 mg tablet TAKE 1 TABLET BY MOUTH EVERY DAY active Not Available Not Available No t Available gabapenti n 100 mg capsule TAKE 1 CAPSULE EVERY NIGHT AT BEDTIME FOR 30 DAYS 03/28 completed Not Available Not Available Not Available metoprolo l succinate ER 25 mg tablet,ex tended release 24 hr 03/19 completed changed to 50mg Not Available Not Available Not Available ergocalci ferol (vitamin D2) 1,250 mcg (50,000 unit) capsule TAKE 1 TABLET TWICE THIS WEEK AND THEN 1 TABLET WEEKLY 07/04 completed Not Available Not Available Not Available nystatin 100,000 unit/gram topical powder APPLY TO THE AFFECTED AREA(S) BY TOPICAL ROUTE 2 TIMES PER DAY 06/11 completed Not Available Not Available Not Available ketoconaz ole 2 % topical cream APPLY TO THE AFFECTED AREA(S) BY TOPICAL ROUTE ONCE DAILY 06/11 completed Not Available Not Available Not Available hydroxyzi ne HCl 10 mg tablet TAKE ONE TABLET BY MOUTH ONCE DAILY AT BEDTIME active Not Available Not Available No t Available fluticaso ne propionat e 50 mcg/actua tion nasal spray,[employer] [place] 2 sprays every day by intranas al route. 12/17 completed Not Available Not Available Not Available metformin ER 500 mg tablet,ex tended release 24 hr TAKE 4 TABLETS BY MOUTH EVERY DAY AT DINNER active Not Available Not Available No t Available doxycycli ne hyclate 100 mg tablet Take 1 tablet twice a day by oral route for 10 days. 10/02 completed Not Available Not Available Not Available amoxicill in 875 mg-potass ium clavulana te 125 mg tablet TAKE 1 TABLET BY MOUTH EVERY 12 HOURS 11/03 completed Not Available Not Available Not Available oxycodone 5 mg tablet TAKE 1 TABLET BY MOUTH EVERY 6 HOURS NEEDED FOR PAIN RATED 4 TO 6 FOR 7 DAYS 03/28 completed Not Available Not Available Not Available ezetimibe 10 mg tablet TAKE 1 TABLET BY MOUTH EVERY DAY active Not Available Not Available No t Available cyclobenz aprine 5 mg tablet Take 1 tablet every day by oral route at dinner for 30 days. 03/28 completed Not Available Not Available Not Available Alcohol Prep Pads USE DIRECTED . TEST ONCE DAILY active Not Available Not Available No t Available Atrovent HFA 17 mcg/actua tion aerosol inhaler Inhale 2 puffs 4 times a day by inhalati on route as needed for 10 days. 07/17 completed Not Available Not Available Not Available fenofibra te 160 mg tablet TAKE 1 TABLET BY MOUTH EVERY DAY active Not Available Not Available No t Available pregabali n 75 mg capsule 03/28 completed Not Available Not Available Not Available pregabali n 100 mg capsule TAKE 1 CAPSULE BY MOUTH THREE TIMES A DAY FOR 30 DAYS. STOP GABAPENT IN active Not Available Not Available No t Available pregabali n 150 mg capsule TAKE 1 CAPSULE BY MOUTH EVERY NIGHT active Not Available Not Available No t Available loratadin e 10mg daily 02/17 completed Not Available Not Available Not Available ProAir HFA 90 mcg/actua tion aerosol inhaler Inhale 2 puffs every 4 hours by inhalati on route as needed. active Not Available Not Available No t Available Symbicort 160 mcg-4.5 mcg/actua tion HFA aerosol inhaler Inhale 1 puff every 12 hours by inhalati on route. 12/14 completed SAMPLES GIVEN Not Available Not Available Not Available Trilipix 135 mg capsule,d elayed release Take 1 capsule every day by oral route. 12/11 completed pt. stopped taking Not Available Not Available Not Available ketorolac 30 mg/mL injection solution Inject 1 mL every 6 hours by intraven ous route. active [facility]# [id number] Not Available Not Available Not Available Pond5 1.5 billion cell capsule Take 1 capsule every day by oral route in the morning for 30 days. 07/28 completed Not Available Not Available Not Available OneTouch Verio test strips USE DIRECTED . TEST ONCE DAILY active Not Available Not Available No t Available Linzess 145 mcg capsule Take 1 capsule every day by oral route for 30 days. 07/17 completed Not Available Not Available Not Available Vascepa 1 gram capsule TAKE 1 CAPSULE BY MOUTH TWICE A DAY active Not Available Not Available No t Available OneTouch Verio Flex Meter USE TO TEST BLOOD SUGAR ONCE DAILY active Not Available Not Available No t Available OneTouch Delica Plus Lancet 33 gauge USE DIRECTED . TEST ONCE DAILY active Not Available Not Available No t Available Nexletol 180 mg tablet active Not Available Not Available Not Available Paxlovid 300 mg (150 mg x 2)-100 mg tablets in a dose pack Use as directed twice a day x 5 days 03/28 completed Not Available Not Available Not Available Vitals Date Recorded Body height Body mass index (BMI) Body weight Body temperature Heart rate Oxygen saturation Oxygen saturation in Arterial blood by Pulse oximetry Systolic And Diastolic Provider Name and Address Organization Details Last Updated DateTime 5 175.26 cm 26.7 kg/m2 27215.2 2 g 98.1 [degF] 74 /min 100 % 100 % 114/58 mm[Hg] Meredith Monreal RN [place] [facility] [employer] 5 15:23:53 Date Recorded Body height Body mass index (BMI) Body weight Body temperature Respiratory rate Heart rate Oxygen saturation Oxygen saturation in Arterial blood by Pulse oximetry Systolic And Diastolic Provider Name and Address Organization Details Last Updated DateTime 5 175.26 cm 26.7 kg/m2 92912.4 g 97.4 [degF] 16 /min 79 /min 97 % 97 % 130/70 mm[Hg] Echo Nevarez [facility] [employer] [facility] 5 12:33:24 Date Recorded Body height Body mass index (BMI) Body weight Body temperature Oxygen saturation Oxygen saturation in Arterial blood by Pulse oximetry Heart rate Systolic And Diastolic Provider Name and Address Organization Details Last Updated DateTime 5 175.26 cm 25.5 kg/m2 21790.4 8 g 97.3 [degF] 97 % 97 % 72 /min 122/68 mm[Hg] Maribeth Maldonado Laci [facility] [employer] [facility] 5 11:44:01 Date Recorded Body height Body mass index (BMI) Body weight Body temperature Heart rate Oxygen saturation Oxygen saturation in Arterial blood by Pulse oximetry Systolic And Diastolic Provider Name and Address Organization Details Last Updated DateTime 4 175.26 cm 25.5 kg/m2 14022.7 6 g 97.7 [degF] 60 /min 100 % 100 % 120/68 mm[Hg] June Gabriele Kapadia [facility] [employer] [facility] 4 11:27:42 Social History Question Answer Notes LastModified by [employer] Details LastModified Time Tobacco Smoking Status Never Smoker Not Available [facility] 05/18/2022 08:05:37 In The 14 Days Before Symptom Onset, Have You Had Close Contact With A Laboratory-confirm ed COVID-19 While That Case Was Ill? No [id number] Information not available 05/18/2022 In The 14 Days Before Symptom Onset, Have You Had Close Contact With A Person Who Is Under Investigation For COVID-19 While That Person Was Ill? No [id number] Information not available 05/18/2022 Sex: Unknown Functional Status Question Answer Note LastModified by [employer] Details LastModified Time What is your occupation? retired [id number] Information not available 05/18/2022 Mental Status None recorded. Family History Relationship Description Onset Age of this Age Resolved Age Notes LastModified by Organization Details LastModified Time Paternal Grandfather Family history of malignant neoplasm [id number] Not available 05/18/2022 08:06:13 Notes:mom 2 Medical History No medical history recorded. Immunizations Vaccine Type Date Status Note Provider Nam e and Address Organization Details Recorded Time Influenza, high-dose, quadrivalent, PF 3 completed Nahed Borjas RN [facility] [place] - [facility] 01/17/2023 11:38:39 Influenza, split virus, trivalent, preservative 6 completed Not Available [facility], [facility] 03/17/2023 00:35:29 Influenza, split virus, trivalent, preservative 4 completed Not Available [facility] 03/17/2023 00:35:29 Influenza, split virus, trivalent, preservative 3 completed Not Available [facility] 03/17/2023 00:35:29 Influenza, high-dose, quadrivalent, PF 2 completed Not Available [facility] 03/17/2023 00:35:28 Influenza, high-dose, quadrivalent, PF 1 completed Not Available [facility] 03/17/2023 00:35:28 Influenza, high-dose, quadrivalent, PF 0 completed Not Available [facility], [facility] 03/17/2023 00:35:28 Pneumococcal conjugate PCV 13 0 completed Not Available [facility], [facility] 03/17/2023 00:35:28 Influenza, high-dose, trivalent, PF 9 completed Not Available [facility] 03/17/2023 00:35:29 Influenza, split virus, quadrivalent, PF 9 completed Not Available [facility] 03/17/2023 00:35:29 Influenza, high-dose, trivalent, PF 7 completed Not Available [facility] 03/17/2023 00:35:28 Influenza, split virus, quadrivalent, preservative 6 completed Not Available [facility] 03/17/2023 00:35:28 Influenza, high-dose, trivalent, PF 4 completed Aleida Kapadia RN [facility] [place] [employer] [facility] [employer] 12/28/2023 17:05:35 Influenza, high-dose, trivalent, PF 4 completed WESLY Dyer [address], [facility] [address], [place], [address], [facility] [employer] [facility] [employer] 12/24/2023 15:12:39 Past Encounters Encounter ID Performer Location Encounter Start Date Encounter Closed Date Diagnosis/Indication Diagnosis SNOMED-CT Code Diagnosis ICD10 Code Diagnosis Note [id number] Damon Holley MD [facility] [address] [place] [address] [place] [address] 06/11/2020 00:00:00 06/12/2020 05:53:12 [id number] Damon Holley MD [facility] [address] [place] [address] [place] [address] 09/28/2020 00:00:00 09/28/2020 12:41:54 [id number] Damon Holley MD [facility] [address] [place] [address] [place] [address] 12/28/2020 00:00:00 12/28/2020 15:13:36 [id number] Damon Holley MD [facility] [address] [place] [address] [place] [address] 02/07/2022 00:00:00 02/07/2022 19:54:27 [id number] Damon Holley MD [facility] [address] [place] [address] [place] [address] 11/03/2022 11:31:25 11/03/2022 12:17:28 Pain in left foot 9912270954 32585 M79.788 [id number] Damon Holley MD [facility] [address] [place] [address] 01/13/2023 11:04:21 01/17/2023 18:03:38 [id number] Damon Holley MD [facility] [address] [place] [address] 02/08/2023 10:29:47 02/08/2023 10:56:35 Otitis media of left ear 8509869319 147791 H66.92 [id number] Damon Holley MD [facility] [address] [facility] [place] [address] 02/23/2023 12:16:41 02/23/2023 13:59:54 Impacted cerumen 77209974 H61.23 [id number] Damon Holley MD [facility] [address] [place] [address] [place] [address] 03/14/2023 14:30:57 03/14/2023 15:32:39 Disorder of joint of left ankle 4172304035 5393469 M25.872 Hyperlipidemia 95489741 E78.5 [id number] Theodore Barboza MD [facility] [address] [facility] [place] [address] 08/24/2023 09:15:10 08/24/2023 09:50:14 Left side sciatica 3773767222 33214 M54.32 Degenerati on of lumbar intervertebral disc 78956013 M51.36 Muscle pain 96875392 M79 .10 Osteoarthr itis of left hip joint 5967021656 27738 M16.12 Trochanter ic bursitis of left hip 5452358731 66011 M70.62 [id number] Theodore Barboza MD [facility] [address] [facility] [place] [address] 12/21/2023 10:51:27 12/21/2023 12:22:53 Adult health examination 362361663 Z00.00 Screening for disorder 249968315 Z13.9 Administra tion of influenza vaccine 72976456 Z23 Wax in ear canal 8050687 02 H61.22 H61.21 Chronic id iopathic constipation 98969193 K59.04 Gastroesop hageal reflux disease 182232649 K21.9 Hyperlipidemia 02591182 E78.5 Impacted cerumen 8813535 6 H61.23 Osteoarthr itis of left hip joint 2742895556 63677 M16.12 Vitamin D deficiency 347 93352 E55.9 [id number] Theodore Barboza MD [address] [address] 03/18/2024 12:24:53 03/18/2024 12:55:41 [id number] Theodore Barboza MD [address] [address] 03/28/2024 15:12:44 03/28/2024 16:07:46 Cough 83947444 R05.9 [id number] Theodore Barboza MD [address] [address] 06/10/2024 12:22:34 06/10/2024 13:52:54 Bronchitis 87988714 J40 Gastroesop hageal reflux disease 145144951 K21.9 Hyperlipidemia 41417512 E78.5 Osteoarthr itis of left hip joint 8233014438 74287 M16.12 [id number] Theodore Barboza MD [address] [address] 07/17/2024 11:29:45 07/17/2024 12:47:44 Blood glucose outside reference range 238265372 R73.09 Type 2 matthias betes mellitus 42645037 E11.9 Health Concerns Section Related Observation LastModified by Organization Detai ls LastModified Time None Recorded Concern Status LastModified by Organization Details LastModified Time None Recorded Advance Directives Directive None Recorded Payers Insurance Date Sequence Insurance Name Policy Number Policy Mo Covered Member ID Mo Member ID Guarantor Name 12/21/2023 1 [place] Kun Borjas [id number] Kun Borjas 12/21/[address] [facility] (MEDICARE SUPPLEMENT) [id number] Kun Borjas [id number] Kun Borjas 12/21/2023 2 [facility] (POS II) Kun Borjas [id number] Kun Borjas 12/21/2023 [facility] (MEDICARE REPLACEMENT/A DVANTAGE - PPO) [id number] Kun Borjas [id number] Kun Borjas 09/26/2024 1 [facility] (MEDICARE REPLACEMENT/A DVANTAGE - PPO) [id number] Kun Borjas [id number] Kun Borjas Notes Date Note Type Note Provider Name and Address Organization Details Recorded Time 12/21/2023 text/html ear wax is comin g back. had back surgery . It helped so much , the pain was constant before . Now he is fine WESLY Dyer [address], [place], [address], [employer] 12/24/2023 15:18:49 03/28/2024 text/html cough , so hard muscles sore, no fever WESLY Dyer [address], [place], [address], [employer] 04/02/2024 17:00:07 06/10/2024 text/html sings , but coug h is aggravating ; no fever WESLY Dyer [address], [place], [address], [employer] 06/17/2024 14:58:03 07/17/2024 text/html in the mornings left sciatica is intense . till noon , then stops hurting till the next morning WESLY Dyer [address], [place], [address], [employer] 07/22/2024 14:26:54
--- OUTSIDE RECORDS SUMMARY | 2024-10-04 14:42 | XMS_ITS | Clinical Summary ---
Author Organization [facility] Address [address] [place] [address] Care Team Providers Care Resizer Operator Name Role Phone Sacha Haro Primary Care Provider + Allergies Active Allergy Reactions Criticality Noted Date Comments Meperidine Hcl Other (see comment) 08/21/2023 Bradycardia Tetanus Immune Globulin Rash Low 08/21/2023 Medications acetaminophen (TYLENOL) 325 MG tablet Take 2 tablets (650 mg total) by mouth every 6 (six) hours as needed for Fever. Active HYDROcodone-samara taminophen (NORCO) 10-325 MG tablet Take 1 tablet by mouth every 6 (six) hours as needed for Pain. Active aspirin 81 MG chewable tablet Chew 1 tablet (81 mg total) by mouth daily. Active celecoxib (CELEBREX) 100 MG capsule Take 1 capsule (100 mg total) by mouth 2 (two) times daily. Active dexamethasone (DECADRON) 10 MG/ML injection Inject 1 mL (10 mg total) into the vein every 6 (six) hours. Active docusate sodium (COLACE) 100 MG capsule Take 1 capsule (100 mg total) by mouth 2 (two) times daily. Active fenofibrate 160 MG tablet Take 1 tablet (160 mg total) by mouth daily. Active glucagon 1 MG injection Inject into the muscle once as needed. Active HYDROmorphone (DILAUDID) 1 MG/ML Solution Inject 0.5 mLs (0.5 mg total) into the vein every 4 (four) hours as needed. Active lidocaine (HM LIDOCAINE PATCH) 4 % patch Place 2 patches onto the skin daily. Remove & Discard patch within 12 hours or as directed by Active loratadine-pseu doephedrine ER (CLARITIN-D 24-HR) 10-240 MG 24 hr tablet Take 1 tablet by mouth daily. Active Magnesium Oxide 420 MG Tab Take 400 mg by mouth daily. Active metoprolol succinate ER (TOPROL-XL) 50 MG 24 hr tablet Take 1 tablet (50 mg total) by mouth daily. Active multi vitamin/mineral s (THERA-M ENHANCED) tablet Take 1 tablet by mouth daily. Active ondansetron in sodium chloride solution Inject 4 mLs (4 mg total) into the vein every 4 (four) hours. Active pantoprazole EC (PROTONIX) 40 MG tablet Take 1 tablet (40 mg total) by mouth daily. Active polyethylene glycol (GLYCOLAX) packet Take 240 mLs (17 g total) by mouth daily as needed for Constipation. Dissolve powder in 240 mL water Active pregabalin (LYRICA) 75 MG capsule Take 1 capsule (75 mg total) by mouth 3 (three) times daily. Active vitamin D3 (CHOLECALCIFERO L) 10 mcg tablet Take 2.5 tablets (1,000 Units total) by mouth daily. Active Social History Tobacco Use Types Packs/Day Years Used Date Smoking Tobacco: Never Smokeless Tobacco: Never Tobacco Cessation:Counseling Given: Not Answered Alcohol Use Standard Drinks/Week Comments Never 0 (1 standard drink = 0.6 oz pur e alcohol) Sex and Gender Information Value Date Recorded Sex Assigned at Not on file Legal Sex Male 12:25 PM CDT Gender Identity Not on file Sexual Orientation Not on file Last Filed Vital Signs Vital Sign Reading Time Taken Comments Blood Pressure 137/68 08/21/2023 2:48 PM CDT Pulse 94 08/21/2023 2:48 PM CDT Temperature 37.6 C (99.6 F) 08/21/2023 2:48 PM CDT Respiratory Rate 18 08/21/2023 2:48 PM CDT Oxygen Saturation 97% 08/21/2023 2:48 PM CDT Inhaled Oxygen Concentration - - Weight 72.2 kg (159 lb 2.8 oz) 08/21/2023 10:00 AM CDT Height 175.3 cm (5' 9) 08/21/2023 10:00 AM CDT Body Mass Index 23.51 08/21/2023 10:00 AM CDT Plan of Treatment Health Maintenance Due Date Last Done Comments DTaP, Tdap and Td Vaccines (1 - Tdap) 1962 Zoster Vaccines (1 of 2) 1993 Annual Medicare Wellness Visit 2008 RSV Immunization or 60+ Years (1 - 1-dose 75+ series) 2018 COVID-19 Vaccine ( season) 2023 01/05/2023, 01/31/2022, 07/12/2021, Additional history exists Pneumococcal Vaccine: 50+ Years Completed 02/18/2021, 04/22/2019 Meningococcal B Vaccine Aged Out No l onger eligible based on patient's age to complete this topic Meningococcal Vaccine Aged Out No eric silvia eligible based on patient's age to complete this topic RSV Immunizations Under 20 Months Aged Out No longer eligible based on patient's age to complete this topic Medical Devices Implanted Type Area Inward Toll Operator Device Identifier Shelf Expiration Date Model / Serial / Lot Ra Lead-12/26/2016 Implanted:Qty: 1 on 12/26/2016 Lead Implant Right: Atrium [employer] FAILURE - DIV M 5076-52 / [id number] / Rv Lead-12/26/2016 Implanted:Qty: 1 on 12/26/2016 Lead Implant Right: Ventricle [employer] FAILURE - DIV M 5076-58 / [id number] / Pacemaker-12/26 Implanted:Qty: 1 on 12/26/2016 Pacemaker Chest [employer] FAILURE - DIV M [id number] / [id number] / Description: MRI Conditional under following conditions: Static magnetic field of 1.5 T or 3 T, Max spatial gradient field of 2000 gauss/cm or less, Max slew rate 200 T/m/s, 1.5 T whole body BHAVYA of 2 W/kg or less in Normal operating mode , Head BHAVYA 3.2 W/kg or less, 3T B1+LEO must be 2.8 mT or less when isocenter is inferior to C7, No B1+LEO restriction at 3T when isocenter is at or superior to C7, Supine or Prone only Insurance [facility] Care Teams Resizer Operator Relationship Specialty Start Date End Date Sacha Haro PA [facility] [place] [address] PCP - General PHYSICIAN CERTIFIED ATHLETIC TRAINER 07/07/23
--- OUTSIDE RECORDS SUMMARY | 2024-10-04 14:42 | XMS_ITS | Continuity of Care Document ---
Author Organization [facility] Address [address] [place] [address] [place] [address] Phone Care Team Providers Care Content Strategy Lead Name Role Phone Jose David Bravo DO Unavailable Unavailable Advance Directives Directive Yes / No Effective Date File Name No Information Encounters Encounter Description Practice Location Reason(s) For Visit Diagnoses Date Provider Providers Copied on Encounter [facility], [address], [place], [place], [id number], [place] tel:[phone] [facility] [place] No Information Shelly Chávez. [address] [facility], [place], [address], [place]. tel: [phone] Family History Family Member Type Diagnosis Age At Onset No Information Payers Payer name Insurance type Covered libertarian ID Authoriza tion(s) [place] [id number] Social History Type Description Quantity Date Captured Comments Sex Male Smoking Status No Information Chief Complaint And Reason For Visit No Information Reason For Referral Reason For Referral No Information History Of Present Illness Encounter Date Complaint History Of Prese nt Illness No Information Functional Status Date Functional Assessmen t No Information Instructions Date Instruction Additional Infor mation No Information Assessments Type Assessment Date No Information Patient Care Teams Name Effective Dates (start - stop) Status Members No Information
--- OUTSIDE RECORDS SUMMARY | 2024-10-04 14:43 | XMS_ITS | Data Portability ---
Author Organization [place] - [facility] OFFICE Address [address] [place] [id number] Care Team Providers Care Fluid Dynamicist Name Role Phone KVNG, AIYANA Primary Care Provider Assessment No assessment recorded. Plan of Treatment Reminders Order Date Submit Date Provider Last Modified By Organization Details Last Modified Time Details Appointments PACER 2024 12:15P M Pacemaker Schedule Not available Not available Not available JESS Rodrigues DETAIL ED 2024 11:30A M Shaji Serrano MD Not available Not available Not available Lab None record ed. Referral None record ed. Procedures None record ed. Surgeries None record ed. Imaging None record ed. Medication Orders Lasix 20 mg tablet 2023 024 [email or web address] [id number] [facility], [facility] [place], [address], 10/28/2023 13:32:44 Patient TargetsNo targets recorded. Patient Instructions Encounter Date Encounter Id Patient Instructions Last Modified By Organization Details Last Modified Time 05/09/2023 [id number] Exercise advised Low cholesterol diet advised Low sodium diet advised. [email or web address] Not available 05/09/2023 13:09:06 08/03/2024 [id number] Exercise advised Low cholesterol diet advised Low sodium diet advised. [email or web address] Not available 08/03/2024 12:35:56 Reason for Referral None Reported. Results Created Date Observation Date Name Description Value Unit Range Abnormal Flag Note LastModifiedBy Organization Detail LastModifiedTime 11/09/1911/05/2022 elect isidro gaviriagr am No observ ation record ed. [email or web address] Not Available 2022 15:21:18 02/01/20 23 01/24/2023 pacem sherice inter rogat ion (PROC ) No observ ation record ed. [email or web address] Not Available 2022 15:54:08 03/01/20 23 02/23/2023 pacem sherice inter rogat ion (PROC ) No observ ation record ed. [email or web address] Not Available 2022 09:08:13 05/09/19 24 05/09/2023 elect rocar diogr am No observ ation record ed. [email or web address] Not Available 2023 15:32:31 08/15/19 24 07/25/2023 pacem sherice inter rogat ion (PROC ) No observ ation record ed. [email or web address] Not Available 2023 10:24:31 10/31/19 24 10/28/2023 elect rocar diogr am No observ ation record ed. [email or web address] Not Available 2023 12:11:56 11/01/19 24 07/24/2023 , echoc ardio gram No observ ation record ed. [email or web address] Not Available 2023 10:48:49 11/15/19 24 10/31/2023 US, echoc ardio gram No observ ation record ed. [email or web address] Not Available 2023 09:17:00 02/12/20 24 01/23/2024 pacem sherice inter rogat ion (PROC ) No observ ation record ed. [email or web address] Not Available 2023 09:06:05 08/07/19 25 08/03/2024 elect rocar diogr am No observ ation record ed. [email or web address] Not Available 2024 13:04:08 08/21/19 25 07/23/2024 pacem sherice inter rogat ion (PROC ) No observ ation record ed. [email or web address] Not Available 2024 16:04:01 Result Notes Documentation Provider Name and Address Organization Details Recorded Time Lipid Panel, Blood : 02/28/23:Na 141,K 4.4,CL 101,CO2 30,GLU 116,BUN 17,Cr 1.02 . 02/28/23:TC 162,TG 256,HDL 31,LDL 80. Rajwinder Mijares null, [place] - [facility] 04/20/2023 11:17:37 Problems Name Problem SNOMED Code Status Onset Date Resolution Date Notes Provider Name and Address Organization Details Recorded Time Diabetes mellitus 02836609 Active 2016 Not Available [facility] 3 21:59:41 Cough 95254622 Active 2016 Not Available [facility] 3 21:59:41 Wheezing 31106403 Active 2016 Not Available [facility] 3 21:59:41 Essential hypertension 32220729 Active 2016 Not Available [facility] 3 21:59:41 Sick sinus syndrome 72654724 Active 2016 Not Available [facility] 3 21:59:41 Coronary atheroscleros is 544610260 Active 2016 Not Available [facility] 3 21:59:41 Dyslipidemia 023387373 Active 2016 Not Available [facility] 3 21:59:41 Pericardial effusion 793494363 Active 2016 Not Available [facility] 3 21:59:41 Cardiac pacemaker in situ 632276996 Active 2016 Not Available [facility] 3 21:59:41 Nonsustained ventricular tachycardia 090277916 Active 2019 Not Available [facility] 3 21:59:41 Intermittent claudication 02060091 Active 2019 Not Available [facility] 3 21:59:41 Notes:Some problems listed i n Documents: #[id number], #[id number], #[id number] could not be added to this patient's chart. Please review these documents and add these problems to the patient's chart manually as needed. Problem Notes None recorded. Medical Equipment None Reported. Allergies Allergen ID Allergen Name Allergen Category Reaction Reaction Severity Criticality Documentation Date Start Date Code Code System Note Provider Name and Address Organization Details Recorded Time 5296 Demerol medicatio n tachycard ia severe Not available 01/03/2017 08955 1 RxNorm Shaji Ladd i, MD [address] [place], [address] [place] [address] [facility] 7 15:38:18 5297 tetanus and diphtheri a toxoids Not available fever hives severe severe Not available 01/03/2017 18537 UNK Cristina Loyahammad gaspar [place] - [facility] 9 13:47:12 Medications Name Sig Start Date Stop Date Status Note LastModified by Organization Details LastModified Time cyclobenza ziyad 10 mg tablet TAKE 1 TABLET BY MOUTH THREE TIMES A DAY NEEDED FOR MUSCLE SPASMS FOR 10 DAYS 08/03 completed Not Available Not Available Not Available prednisone 10 mg tablet PLEASE SEE ATTACHED FOR DETAILED DIRECTIO NS 10/27 completed Not Available Not Available Not Available azithromyc in 250 mg tablet 07/04 completed Not Available Not Available Not Available ibuprofen 800 mg tablet TAKE 1 TABLET BY MOUTH THREE TIMES A DAY WITH MEALS active Not Available Not Available No t Available metoprolol succinate ER 50 mg tablet,ext ended release 24 hr TAKE 1 TABLET BY MOUTH EVERY DAY 2024 active Not Available Not Available Not Avai lable hydrocodon e 5 mg-acetami nophen 325 mg tablet Take 1 tablet every 6 hours by oral route as needed. 01/22 completed NEEDED 04/27/21 tc Not Available Not Available Not Available sucralfate 1 gram tablet TAKE 1 TABLET BY MOUTH FOUR TIMES A DAY BEFORE MEALS (30 MINUTES BEFORE MEALS AND AT BEDTIME) active Not Available Not Available No t Available prednisone 20 mg tablet PLEASE SEE ATTACHED FOR DETAILED DIRECTIO NS 08/03 completed Not Available Not Available Not Available fluorourac il 5 % topical cream 01/03 completed Not Available Not Available Not Available ciprofloxa esme 500 mg tablet TAKE 1 TABLET BY MOUTH EVERY 12 HOURS FOR 10 DAYS 08/03 completed Not Available Not Available Not Available hydrocodon e 10 mg-acetami nophen 325 mg tablet TAKE 1 TABLET BY MOUTH THREE TIMES A DAY NEEDED FOR 30 DAYS 01/24 completed Not Available Not Available Not Available omeprazole 40 mg capsule,de layed release TAKE 1 CAPSULE BY MOUTH EVERY DAY BEFORE MEALS (30 MINUTES BEFORE FOOD) active Not Available Not Available No t Available ondansetro n 8 mg disintegra ting tablet PLACE 1 TABLET ON TONGUE TWICE A DAY NEEDED FOR 30 DAYS. 01/24 completed Not Available Not Available Not Available cephalexin 500 mg capsule 01/03 completed Not Available Not Available Not Available pantoprazo le 40 mg tablet,del ayed release TAKE 1 TABLET BY MOUTH EVERY DAY 30 MINUTES BEFORE A MEAL 10/27 completed Not Available Not Available Not Available Ear Drops (carbamide peroxide) 6.5 % INSTILL 10 DROPS IN THE AFFECTED EAR(S) ONCE DAILY active Not Available Not Available No t Available furosemide 20 mg tablet TAKE 1 TABLET BY MOUTH EVERY DAY active Not Available Not Available No t Available gabapentin 100 mg capsule Take by oral route for 30 days. 01/24 completed Not Available Not Available Not Available metoprolol succinate ER 25 mg tablet,ext ended release 24 hr TAKE ONE TABLET BY MOUTH ONCE DAILY 04/30 completed Not Available Not Available Not Available methylpred nisolone 4 mg tablets in a dose pack TAKE 6 TABLETS ON DAY 1 DIRECTED ON PACKAGE AND DECREASE BY 1 TAB EACH DAY FOR A TOTAL OF 6 DAYS 10/19 completed Not Available Not Available Not Available metformin ER 500 mg tablet,ext ended release 24 hr PLEASE SEE ATTACHED FOR DETAILED DIRECTIO NS active Not Available Not Available No t Available amoxicilli n 875 mg-potassi um clavulanat e 125 mg tablet TAKE 1 TABLET BY MOUTH EVERY 12 HOURS 05/09 completed Not Available Not Available Not Available oxycodone 5 mg tablet TAKE 1 TABLET BY MOUTH EVERY 6 HOURS NEEDED FOR PAIN RATED 4 TO 6 FOR 7 DAYS 01/24 completed Not Available Not Available Not Available ezetimibe 10 mg tablet TAKE 1 TABLET BY MOUTH EVERY DAY 2024 active Not Available Not Available Not Avai lable cyclobenza ziyad 5 mg tablet TAKE 1 TABLET BY MOUTH EVERY DAY AT DINNER FOR 30 DAYS active Not Available Not Available No t Available Alcohol Prep Pads USE DIRECTED . TEST ONCE DAILY active Not Available Not Available No t Available fenofibrat e 160 mg tablet Take 1 tablet by mouth every day. 2024 active Not Available Not Available Not Avai lable pregabalin 100 mg capsule TAKE 1 CAPSULE BY MOUTH THREE TIMES A DAY FOR 30 DAYS. STOP GABAPENT IN active Not Available Not Available No t Available pregabalin 150 mg capsule TAKE 1 CAPSULE BY MOUTH EVERY NIGHT active Not Available Not Available No t Available Aspir-81 1 tab qd 04/27 completed Not Available Not Available Not Available loratadine 10 mg capsule Take 1 capsule every day by oral route as needed. 04/27 completed pt no longer takes 01/27/20 21 nj Not Available Not Available Not Available OneTouch Verio test strips USE DIRECTED . TEST ONCE DAILY active Not Available Not Available No t Available Vascepa 1 gram capsule TAKE 1 CAPSULE BY MOUTH TWICE A DAY 2024 active Not Available Not Available Not Avai lable OneTouch Verio Flex Meter USE TO TEST BLOOD SUGAR ONCE DAILY active Not Available Not Available No t Available OneTouch Delica Plus Lancet 33 gauge USE DIRECTED . TEST ONCE DAILY active Not Available Not Available No t Available Nexletol 180 mg tablet Take 1 tablet every day by oral route at bedtime. 2023 active Not Available Not Available Not Avai lable Nexlizet 180 mg-10 mg tablet Take 1 tablet every day by oral route. 12/24 completed pt is no longer taking due to not being able to afford / we never have samples . pt would like to know what else they can take . Not Available Not Available Not Available Vitals Date Recorded Body height Body mass index (BMI) Body weight Heart rate Oxygen saturation Oxygen saturation in Arterial blood by Pulse oximetry Systolic And Diastolic Provider Name and Address Organization Details Last Updated DateTime 4 175.26 cm 26.4 kg/m2 16562.0 3 g 73 /min 97 % 97 % 127/67 mm[Hg] Maribeth Souza [facility] 4 13:00:19 Date Recorded Body height Body mass index (BMI) Body weight Oxygen saturation Oxygen saturation in Arterial blood by Pulse oximetry Heart rate Systolic And Diastolic Provider Name and Address Organization Details Last Updated DateTime 5 175.26 cm 25.7 kg/m2 73398.0 7 g 98 % 98 % 70 /min 122/62 mm[Hg] Nica [facility] [address] 5 12:08:16 Date Recorded Body height Body mass index (BMI) Body weight Heart rate Oxygen saturation Oxygen saturation in Arterial blood by Pulse oximetry Systolic And Diastolic Provider Name and Address Organization Details Last Updated DateTime 4 175.26 cm 25.8 kg/m2 21771.6 6 g 77 /min 95 % 95 % 122/60 mm[Hg] Nica Dat [facility] 4 13:08:29 Date Recorded Body height Body mass index (BMI) Body weight Heart rate Respiratory rate Oxygen saturation Oxygen saturation in Arterial blood by Pulse oximetry Systolic And Diastolic Provider Name and Address Organization Details Last Updated DateTime 3 175.26 cm 27.5 kg/m2 40433.1 8 g 68 /min 16 /min 97 % 97 % 132/64 mm[Hg] Alber Vazquez [facility] 3 12:22:20 Date Recorded Body height Body mass index (BMI) Body weight Heart rate Oxygen saturation Oxygen saturation in Arterial blood by Pulse oximetry Systolic And Diastolic Provider Name and Address Organization Details Last Updated DateTime 4 175.26 cm 26.1 kg/m2 92530.4 9 g 76 /min 99 % 99 % 122/62 mm[Hg] Maribeth Souza [facility] 4 17:58:36 Social History Question Answer Notes LastModified by [email or web address] Details LastModified Time Tobacco Smoking Status Never Smoker Not Available [facility] 01/21/2020 03:30:41 What Is Your Level Of Caffeine Consumption? None [id number] Information not available 01/21/2020 How Much Tobacco Do You Chew? None [id number] Information not available 01/21/2020 What Type Of Diet Are You Following? CARDIAC [id number] Information not available 01/21/2020 Which Illicit Or Recreational Drugs Have You Used? No [id number] Information not available 01/21/2020 Marital Status Unknown [email or web address] Informatio n not available 01/03/2017 What Was The Date Of Your Most Recent Tobacco Screening? 07/31/2018 [id number] Information not available 01/21/2020 How Much Tobacco Do You Smoke? No [id number] Information not available 01/21/2020 How Many Years Have You Smoked Tobacco? 0 [id number] Information not available 01/21/2020 Sex: Unknown Functional Status Question Answer Note LastModified by [email or web address] Details LastModified Time What is your level of alcohol consumption? None [id number] Information not available 01/21/2020 Do you or have you ever used smokeless tobacco? Never used smokeless tobacco [id number] Information not available 01/21/2020 What is your occupation? retired [id number] Information not available 01/21/2020 Do you or have you ever used e-cigarettes or vape? Never used electronic cigarettes [id number] Information not available 01/21/2020 What is your exercise level? None [id number] Information not available 01/21/2020 Mental Status None recorded. Family History Relationship Description Onset Age of this Age Resolved Age Notes LastModified by Organization Details LastModified Time Father No current problems or disability [email or web address] Not available 01/03 15:21:12 Mother No current problems or disability Not available 01/03 15:21:12 Medical History Condition Response Coronary Artery Disease Y Arrhythmia Y Diabetes Y Hyperlipidemia Y Hypertension Y Past Encounters Encounter ID Performer Location Encounter Start Date Encounter Closed Date Diagnosis/Indication Diagnosis SNOMED-CT Code Diagnosis ICD10 Code Diagnosis Note [id number] Shaji Serrano MD [place] [facility] [place] [address] 01/03/2017 14:44:12 01/04/2017 11:53:29 Essential hypertension 92490885 I10 Wheezing 49452195 R06.2 Diabetes mellitus 667168 09 E11.9 Sick sinus syndrome 3608 3008 I49.5 with complete AV block, now has a pacer Cardiac pa cemaker in situ 098999728 Z95.0 Pacer follow up was done today, it seems to be functionin g well, no new events Coronary arteriosclerosis 30774108 I25.10 maximal Medical treatment Dyslipidemia 539932057 E 78.5 Needs to keep LDL less than 70, and HDL more than 40. Pericardial effusion 373 973090 I31.3 Echo FU with improved effusionFU later [id number] Shaji Serrano MD [place] [facility] [place] [address] 01/23/2017 15:01:02 01/24/2017 14:02:03 Examination of blood pressure 534597069 Z01.30 Diabetes mellitus 447006 09 E11.9 Sick sinus syndrome 3608 3008 I49.5 with complete AV block, now has a pacer, will fu Cardiac pa cemaker in situ 574607404 Z95.0 Pacer follow up was done today, it seems to be functionin g well, no new events Coronary arteriosclerosis 29235729 I25.10 maximal Medical treatment Dyslipidemia 536729771 E 78.5 Needs to keep LDL less than 70, and HDL more than 40. 12-25-2016 LDL 95 Pericardial effusion 373 414668 I31.3 Mild [id number] Shaji Serrano MD [place] [facility] [place] [address] 07/04/2017 15:01:52 07/05/2017 10:46:48 Examination of blood pressure 859187310 Z01.30 Diabetes mellitus 959709 09 E11.9 Sick sinus syndrome 3608 3008 I49.5 with complete AV block, now has a pacer, will fu Cardiac pa cemaker in situ 767211308 Z95.0 Pacer follow up here Coronary arteriosclerosis 85588848 I25.10 maximal Medical treatment Dyslipidemia 103531614 E 78.5 Needs to keep LDL less than 70, and HDL more than 40. 12-25-2016 LDL 95 Pericardial effusion 373 552202 I31.3 Mild [id number] Shaji Serrano MD [place] [facility] [place] [address] 01/30/2018 12:06:53 01/30/2018 13:27:52 Diabetes mellitus 59282970 E11.9 with fair control Sick sinus syndrome 3608 3008 I49.5 with complete AV block, Pacer follow up was done today, it seems to be functionin g well, no new events Cardiac pa cemaker in situ 532101542 Z95.0 Pacer follow up here, Pacer follow up was done today, it seems to be functionin g well, no new events Coronary arteriosclerosis 71589564 I25.10 now with sandie Zarate arrange for cardiac CTA, he has high Varna Risk score. he would benefit from CT to look for any Coronary Artery Disease Dyslipidemia 267196487 E 78.5 Needs to keep LDL less than 70, and HDL more than 40. 12-25-2016 LDL 95 Pericardial effusion 373 868830 I31.3 Mild [id number] Shaji Serrano MD [place] [facility] [place] [address] 07/31/2018 11:56:24 07/31/2018 13:45:26 Diabetes mellitus 87682942 E11.9 with fair control Sick sinus syndrome 3608 3008 I49.5 with complete AV block, Pacer follow up was done today, it seems to be functionin darby samuels, 2 episodes of NSVT on 07/23/2018, 1 sec v rate 171 bpm. A lead switch on 02/2018. Cardiac pa cemaker in situ 749558603 Z95.0 Pacer follow up here, Pacer follow up was done today, it seems to be functionin g prudencio, l, 2 episodes of NSVT on 07/23/2018, 1 sec v rate 171 bpm. A lead switch on 02/2018. Coronary arteriosclerosis 23218749 I25.10 CATH 01/18/17 : Left main,mediu m size artery no significan t disease or stenosis, LAD showed proximal acentric lesion about 50% narrowing otherwise no obstructiv e. Dyslipidemia 972166007 E 78.5 LDL is not at goal. On Fenofibrat e. Not taking statin due to cramps. Will order fasting lipids. Patient will start exercising and make diet changes. Declines restarting statin therapy. Needs to keep LDL less than 70, and HDL more than 40. 02/13/17: TC 145 ,TG 115, HDL 35 ,LDL 87,AST 24,ALT 43 Pericardial effusion 373 343574 I31.3 Mild. 08/01/17 ECHO :LV chamber size is normal. There is normal global systolic function and contractil ity. The estimated left ventricle ejection fraction is 55-60%(nor mal). There is mild tricuspid regurgitat ion. There is trace pericardia l effusion. [id number] Shaji Serrano MD [place] [facility] [place] [address] 01/29/2019 13:31:28 02/03/2019 21:54:24 Diabetes mellitus 73347400 E11.9 Treatment and evaluation by primary care doctor. Discussed importance of adequate glycemic control to minimize cardiovasc ular disease progressio n. A1C goal of < 7% for type 2 DM Sick sinus syndrome 3608 3008 I49.5 with complete AV block, Pacer follow up was done today, it seems to be functionin darby samuels, 2 episodes of NSVT on 07/23/2018, 1 sec v rate 171 bpm. Obtain echo to evaluate for structural /functiona l disease. Cardiac pa cemaker in situ 989633452 Z95.0 Pacer follow up here, Pacer follow up was done today, it seems to be functionin g well, 1 episode of NSVT for 2 seconds, rate 185 bpm. Coronary arteriosclerosis 28121720 I25.10 CATH 01/18/17 : Left main,mediu m size artery no significan t disease or stenosis, LAD showed proximal acentric lesion about 50% narrowing otherwise no obstructiv e.Maximal medical treatment. Dyslipidemia 393754650 E 78.5 LDL is not at goal. On Fenofibrat e. Not taking statin due to cramps. Will order fasting lipids. Patient will start exercising and make diet changes. Declines restarting statin therapy. Needs to keep LDL less than 70, and HDL more than 40.Will obtain results from PCP. 02/13/17: TC 145 ,TG 115, HDL 35 ,LDL 87,AST 24,ALT 43 Pericardial effusion 373 800946 I31.3 Mild. 08/01/17 ECHO :LV chamber size is normal. There is normal global systolic function and contractil ity. The estimated left ventricle ejection fraction is 55-60%(nor mal). There is mild tricuspid regurgitat ion. There is trace pericardia l effusion. Nonsustain ed ventricular tachycardia 216219272 I47.2 Will increase toprol to 50 Intermitte nt claudication 50222500 I73.9 [id number] Shaji Serrano MD [place] [facility] [place] [address] 04/30/2019 12:12:45 05/01/2019 12:29:24 Diabetes mellitus 38972193 E11.9 Treatment and evaluation by primary care doctor. Discussed importance of adequate glycemic control to minimize cardiovasc ular disease progressio n. A1C goal of < 7% for type 2 DM Sick sinus syndrome 3608 3008 I49.5 s/p pacemaker placementL ast pacer check showed 2 episodes of NSVT on 07/23/2018, 1 sec v rate 171 bpm. Home check not yet done this month. Next clinic pacer check 07/30/2019. Cardiac pa danae in situ 413599308 Z95.0 Coronary arteriosclerosis 02183248 I25.10 CATH 01/18/17 : Left main,mediu m size artery no significan t disease or stenosis, LAD showed proximal acentric lesion about 50% narrowing otherwise no obstructiv e.Maximal medical treatment. Dyslipidemia 080390974 E 78.5 LDL is not at goal. On Fenofibrat e. Not taking statin due to cramps. Will order fasting lipids. Patient will start exercising and make diet changes. Declines restarting statin therapy. Needs to keep LDL less than 70, and HDL more than 40.Will obtain results from PCP. (had recent fasting blood work) 02/13/17: TC 145 ,TG 115, HDL 35 ,LDL 87,AST 24,ALT 43 Pericardial effusion 373 530841 I31.3 Mild. 08/01/17 ECHO :LV chamber size is normal. There is normal global systolic function and contractil ity. The estimated left ventricle ejection fraction is 55-60%(nor mal). There is mild tricuspid regurgitat ion. There is trace pericardia l effusion. Nonsustain ed ventricular tachycardia 345549344 I47.2 Continue Metoprolol 50mg daily Intermitte nt claudication 46381169 I73.9 Will order VARGHESE to evaluate for peripheral artery disease. [id number] Shaji Serrano MD [place] [facility] [address] [place] [address] 01/28/2020 12:02:43 01/28/2020 13:00:42 Sick sinus syndrome 17149377 I49.5 01/28/2020 s/p pacemaker placement (2017) Last pacer check showed one episode of VT on 10/26/2019- 7 beats with 190bpm Cardiac pa cemaker in situ 670201684 Z95.0 01/28/2020 s/p pacemaker placement Last pacer check done 01/28/2020 showed one episode of VT on 10/26/2019- 7 beats with 190bpmOrde r CMP and magnesiumO btain echo to evaluate for structural /functiona l disease. Coronary arteriosclerosis 44655220 I25.10 01/28/2020 CATH 01/18/17 : Left main,mediu m size artery no significan t disease or stenosis, LAD showed proximal acentric lesion about 50% narrowing otherwise no obstructiv e.Maximal medical treatment. Dyslipidemia 347528065 E 78.5 01/27/2007 / LIPID: TC 152, TR 118, HDL 33, LDL 95Obtain fasting lipid panel LDL is not at goal. On Fenofibrat e. Not taking statin due to cramps. Will order fasting lipids. Patient will start exercising and make diet changes. Declines restarting statin therapy. Needs to keep LDL less than 70, and HDL more than 40. Pericardial effusion 373 196692 I31.3 01/28/2020 07/31/18 ECHO: Study quality: Technicall y difficult. LV chamber size is normal. LV wall thickness is mildly increased. There is normal systolic function and contractil ity. The estimated left ventricle ejection fraction is 55-60%(nor mal). Normal left atrial pressure and grade I diastolic dysfunctio n. There is trace mitral regurgitat ion. There is trace tricuspid regurgitat ion. There is mild pulmonary hypertensi on. Estimated RVSP is 36 mmHg. Nonsustain ed ventricular tachycardia 443016175 I47.2 01/28/2020 Continue Metoprolol 50mg daily Intermitte nt claudication 86349991 I73.9 01/28/2020 07/30/19 Arterial duplex- Mild PVD.No complaints at this time. 06/04/19 Arterial doppler: No significan t lower extremity peripheral arterial disease detected in right leg. Calcified non-compre ssible lower extremity arteries in lower left extremity. Vertigo 906464228 R42 01/28/2020 Reports post covid with no resolution with PTOrder CMP and magnesium [id number] Shaji Serrano MD [facility] [address] [place] [address] 07/28/2020 12:27:54 07/28/2020 13:37:26 Sick sinus syndrome 76457239 I49.5 s/p PPM (2017) Pacer check in clinic today shows good function with no new events Cardiac pa cemaker in situ 706824031 Z95.0 As above Coronary arteriosclerosis 58865377 I25.10 Remains asymptomat ic [facility] 01/18/2017 : Left main, medium size artery no significan t disease or stenosis. LAD showed proximal acentric lesion about 50% narrowing otherwise no obstructiv e. Maximal medical treatment Dyslipidemia 563461041 E 78.5 Needs to keep LDL less than 70, and HDL more than 40. 07/20/2020 LDL 96 Previously statin intolerant , will add Zetia. Will get fasting lipids for follow-up Pericardial effusion 373 796407 I31.3 Trace on recent echo Nonsustain ed ventricular tachycardia 567807233 I47.2 Continue Metoprolol 50mg daily Intermitte nt claudication 06514922 I73.9 Arterial duplex 07/30/2019 : Mild PVD Vertigo 778934346 R42 Resolved 39799 Shaji Serrano MD [facility] [address] [place] [address] 01/26/2021 15:39:46 01/26/2021 16:22:33 Sick sinus syndrome 20218582 I49.5 s/p PPM (2017) Pacer check in clinic today shows good function with no new events Cardiac pa cemaker in situ 241464219 Z95.0 As above Coronary arteriosclerosis 10115165 I25.10 Remains [facility] 01/18/2017 : Left main, medium size artery no significan t disease or stenosis. LAD showed proximal acentric lesion about 50% narrowing otherwise no obstructiv e. Maximal medical treatment Dyslipidemia 718579499 E 78.5 Needs to keep LDL less than 70, and HDL more than 40. 07/20/2020 LDL 96 Previously statin intolerant , will add Zetia. Will get fasting lipids for follow-up Pericardial effusion 373 528664 I31.3 Trace on recent echo Nonsustain ed ventricular tachycardia 981435330 I47.2 Continue Metoprolol 50mg daily Intermitte nt claudication 40286134 I73.9 Arterial duplex 07/30/2019 : Mild PVD Vertigo 743506187 R42 Resolved Left ventr icular systolic dysfunction 456482129 I50.20 16428 Shaji Serrano MD [facility] [address] [place] [address] 04/27/2021 14:24:46 04/27/2021 15:46:52 Sick sinus syndrome 72679508 I49.5 s/p PPM (2017) Pacer check in clinic today shows good function with no new events Cardiac pa cemaker in situ 925841031 Z95.0 As above Coronary arteriosclerosis 08046377 I25.10 [facility] : Left main, medium size artery no significan t disease or stenosis. LAD showed proximal acentric lesion about 50% narrowing otherwise no obstructiv e. Maximal medical treatment Dyslipidemia 306599393 E 78.5 Needs to keep LDL less than 70, and HDL more than 40. 07/20/2020 LDL 96 Previously statin intolerant , will add Zetia. Will get fasting lipids for follow-up Pericardial effusion 373 995612 I31.3 Trace on recent echo Nonsustain ed ventricular tachycardia 999426366 I47.2 Continue Metoprolol 50mg daily Intermitte nt claudication 96461255 I73.9 Arterial duplex 07/30/2019 : Mild PVD Vertigo 790577724 R42 Resolved Left ventr icular systolic dysfunction 621329624 I50.20 Essential hypertension 91929891 I10 73230 Shaji Serrano MD [facility] [address] [place] [address] 10/19/2021 15:06:41 10/19/2021 16:16:18 Sick sinus syndrome 16454594 I49.5 s/p PPM (2017) Pacer check in clinic today shows good function with no new events Cardiac pa cemaker in situ 167370781 Z95.0 As above Coronary arteriosclerosis 70019889 I25.10 Remains asymptomat ic [facility] 01/18/2017 : Left main, medium size artery no significan t disease or stenosis. LAD showed proximal acentric lesion about 50% narrowing otherwise no obstructiv e. Maximal medical treatment Dyslipidemia 194953239 E 78.5 Needs to keep LDL less than 70, and HDL more than 40.LDL is 31 and TG 291 done dd ing linus for his TGPrevious ly statin intolerant , will add Zetia. Will get fasting lipids for follow-up Pericardial effusion 373 966541 I31.3 Trace on recent echo Nonsustain ed ventricular tachycardia 145224517 I47.2 Continue Metoprolol 50mg daily Intermitte nt claudication 43743846 I73.9 Arterial duplex 07/30/2019 : Mild PVD Vertigo 564992534 R42 Resolved Left ventr icular systolic dysfunction 014545528 I50.20 Essential hypertension 63587103 I10 Blood pressure is elevated today, but this is only one reading, will keep close follow up, and consider medication change if blood pressure is still elevated next visit. [id number] Shaji Serrano MD [facility] [address] [place] [address] 05/06/2022 12:15:29 05/06/2022 13:02:14 Sick sinus syndrome 75313641 I49.5 s/p PPM (2016) Pacer check in clinic last week shows good function with no new events Cardiac pa cemaker in situ 565400961 Z95.0 As above Coronary arteriosclerosis 53148505 I25.10 Remains asymptomat [facility] 01/18/2017 : Left main, medium size artery no significan t disease or stenosis. LAD showed proximal acentric lesion about 50% narrowing otherwise no obstructiv e. Maximal medical treatment Dyslipidemia 442428742 E 78.5 Needs to keep LDL less than 70, and HDL more than 40.LDL is 31 and TG 291 done dd ing vascepa for his TGWill get fasting lipids for follow-up Intermitte nt claudication 64987574 I73.9 Arterial duplex 07/30/2019 : Mild PVD Vertigo 674130593 R42 Resolved Left ventr icular systolic dysfunction 628777729 I50.20 Essential hypertension 46175908 I10 Blood pressure is elevated today, but this is only one reading, will keep close follow up, and consider medication change if blood pressure is still elevated next visit. 38281 Shaji Serrano MD [facility] [address] [place] [address] 11/05/2022 12:11:52 11/05/2022 12:49:28 Sick sinus syndrome 05637090 I49.5 s/p PPM (2016) Pacer check in clinic last week shows good function with no new events Cardiac pa cemaker in situ 127004765 Z95.0 As above Coronary arteriosclerosis 80917529 I25.10 Remains asymptomat [facility] 01/18/2017 : Left main, medium size artery no significan t disease or stenosis. LAD showed proximal acentric lesion about 50% narrowing otherwise no obstructiv e. Maximal medical treatment Dyslipidemia 086571213 E 78.5 Needs to keep LDL less than 70, and HDL more than 40.LDL is 31 and TG 291 done dd ing vascepa for his TGWill get fasting lipids for follow-up Intermitte nt claudication 94746927 I73.9 Arterial duplex 07/30/2019 : Mild PVD Vertigo 926507854 R42 Resolved Left ventr icular systolic dysfunction 258992918 I50.20 Essential hypertension 96280732 I10 Now well controlled 356151 Shaji Serrano MD [facility] [address] [place] [address] 05/09/2023 12:42:24 05/09/2023 13:13:28 Sick sinus syndrome 42712077 I49.5 s/p PPM (2016) Pacer check in clinic last week shows good function with no new events Cardiac pa cemaker in situ 015669047 Z95.0 As above Coronary arteriosclerosis 41696994 I25.10 Remains asymptomat [facility] 01/18/2017 : Left main, medium size artery no significan t disease or stenosis. LAD showed proximal acentric lesion about 50% narrowing otherwise no obstructiv e. Maximal medical treatment Dyslipidemia 883584277 E 78.5 Needs to keep LDL less than 70, and HDL more than 40.LDL is 31 and TG 291 done 2add ing linus for his TGWill get fasting lipids for follow-up Intermitte nt claudication 13835840 I73.9 Arterial duplex 07/30/2019 : Mild PVD Left ventr icular systolic dysfunction 411644975 I50.20 Obtain echo to evaluate for structural /functiona l disease. Essential hypertension 66930757 I10 Now well controlled [id number] Shaji Serrano MD [facility] [address] [place] [address] 10/28/2023 12:45:12 10/28/2023 13:35:48 Sick sinus syndrome 68934578 I49.5 s/p PPM (2017) Pacer check in clinic last week shows good function with no new events Cardiac pa cemaker in situ 012483268 Z95.0 As above Coronary arteriosclerosis 27401548 I25.10 Remains asymptomat [facility] 01/18/2017 : Left main, medium size artery no significan t disease or stenosis. LAD showed proximal acentric lesion about 50% narrowing otherwise no obstructiv e. Maximal medical treatment Dyslipidemia 297234353 E 78.5 Needs to keep LDL less than 70, and HDL more than 40.LDL is 31 and TG 291 done 2add ing vascepa for his TGWill get fasting lipids for follow-up Intermitte nt claudication 30232526 I73.9 Arterial duplex 07/30/2019 : Mild PVD Left ventr icular systolic dysfunction 228691727 I50.20 Obtain echo to evaluate for structural /functiona l disease. Essential hypertension 84668895 I10 Now well controlled Pre-surger y evaluation 236366354 Z01.818 Now well controlled Obtain echo to evaluate for structural /functiona l disease. Edema of l ower extremity 930088671 R60.0 Obtain echo to evaluate for structural /functiona l disease. 119402 Shaji Serrano MD [facility] [place] [address] 01/25/2024 17:39:20 01/25/2024 18:31:33 Sick sinus syndrome 37398833 I49.5 s/p PPM (2016) Pacer check in clinic shows good function with no new events Cardiac pa cemaker in situ 615724459 Z95.0 As above Coronary arteriosclerosis 18277488 I25.10 Remains asymptomat ic [facility] 01/18/2017 : Left main, medium size artery no significan t disease or stenosis. LAD showed proximal acentric lesion about 50% narrowing otherwise no obstructiv e. Maximal medical treatment Dyslipidemia 632551711 E 78.5 Needs to keep LDL less than 70, and HDL more than 40.LDL is 31 and TG 291 done dd ing vascepa for his TGWill get fasting lipids for follow-up Intermitte nt claudication 46876763 I73.9 Arterial duplex 07/30/2019 : Mild PVD Left ventr icular systolic dysfunction 558853109 I50.20 Had ECHO on 10/31/23 showed V chamber size is normal. LV wall thickness is mildly increased. The estimated left ventricle ejection fraction is 55-60% (normal). Essential hypertension 76967264 I10 Now well controlled [id number] Shaji Serrano MD [facility] [address] [place] [address] 08/03/2024 11:52:49 08/03/2024 12:41:07 Sick sinus syndrome 24212698 I49.5 s/p PPM (2017) Pacer check in clinic shows good function with no new events Cardiac pa danae in situ 523335062 Z95.0 As above Coronary arteriosclerosis 48984418 I25.10 Remains asymptomat ic [facility] 01/18/2017 : Left main, medium size artery no significan t disease or stenosis. LAD showed proximal acentric lesion about 50% narrowing otherwise no obstructiv e. Maximal medical treatment Dyslipidemia 426616331 E 78.5 Needs to keep LDL less than 70, and HDL more than 40.LDL is 31 and TG 291 done dd ing vascepa for his TGWill get fasting lipids for follow-up Intermitte nt claudication 67413645 I73.9 Arterial duplex 07/30/2019 : Mild PVD Left ventr icular systolic dysfunction 074212102 I50.20 Had ECHO on 10/31/23 showed V chamber size is normal. LV wall thickness is mildly increased. The estimated left ventricle ejection fraction is 55-60% (normal). Essential hypertension 97277903 I10 Now well controlled Type 2 matthias betes mellitus 37428736 E11.9 Treatment and evaluation by primary care doctor. Discussed importance of adequate glycemic control to minimize cardiovasc ular disease progressio n. A1C goal of < 7% for type 2 DM Health Concerns Section Related Observation LastModified by Organization Detai ls LastModified Time None Recorded Concern Status LastModified by Organization Details LastModified Time None Recorded Advance Directives Directive None Recorded Payers Insurance Date Sequence Insurance Name Policy Number Policy Mo Covered Member ID Mo Member ID Guarantor Name 08/01/2024 1 [facility] (MEDICARE REPLACEMENT/A DVANTAGE - PPO) [id number] Kun Borjas [id number] Kun Borjas 10/28/2023 2 [place] Kun Borjas [id number] Kun Borjas 10/28/2023 1 [place] Kun Borjas [id number] Kun Borjas 10/28/2023 1 [place] [id number] [employer] (POS) Kun Borjas [id number] Kun Borjas Notes Date Note Type Note Provider Name and Address Organization Details Recorded Time 11/05/2022 text/html 11/05/22CC : Car diac follow up, dyspnea on [id number] man with history of Hypertension, and SSS s/p pacemaker placement, moderate CAD (01/2017 50% LAD stenosis), trace pericardial effusion 2018, is here for 6 month follow-up. He was last seen in the clinic on 05/06/22, since then he has foot pain and swellingHe denies ER visits and hospitalizations since he was last seen. Denies chest pain.Denies shortness of breath at rest. Has mild dyspnea on exertion.No orthopnea. No PNDs.Denies heart palpitations.Denies dizziness. Denies syncope or near syncope.No ankle or leg edema.No major bleeding events.No reported side effects from medications. Taking medications as prescribed with no missed doses.Denies snoring, daytime somnolence and AM headache.*Last LDL was 31 done on 09/21/21.Pt dose not takes any statins. Previously:He got COVID in January. He is following up with pain management for his back and injection was help control his pain. Last LDL was 96 done on 07/19/20 .Pt dose not takes any statins due to muscle pain. *Had ECHO done in 02/26/21 showed LV chamber size is normal,LV wall thickness is mildly increased,diastolic function is difficult to determine,left atrium chamber is mildly dilated,there is mild aortic root calcification,mild elevation RV systolic pressure ,pacemaker pace. *Had arterial duplex done in 07/30/19 showed mild PVD . Recent pacer check 07-29-19 functioning well without irregularities or arrythmias.At previous appt, pacer check 04-30-19 showed NSVT; increased Metoprolol xl to 50mg daily. *Had CATH done in 01/18/17 revealed Left main,medium size artery no significant disease or stenosis, LAD showed proximal eccentric lesson about 50% narrowing otherwise no obstructive. Results from this visit, or from the past: CMP, serum or plasma 07-20-2020 07/20/20 CMP: Na 142, K 4.7, CL 103, CO2 28, GL 15.7, B 21, CR 1.22, AST 31, ALT 18, CK 105, Mg 2.1 lipid panel, blood 07-20-2020 07/20/20 LIPID: TC 154, TG 150, HDL 28, LDL 96 10/02/18 CMP: NA 141, K 4.2, CL 105, CO2 26, GLU 94, BUN 23, CR 1.19, AST 58, ALT 67 10/02/18 LIPID: TC 152, TR 118, HDL 33, LDL 95 02/13/17: Na 141 ,K 4.3, CL 104 ,CO2 28 ,GLU 113 ,BUN 20 ,CR 1.15 ,TC 145 ,TG 115, HDL 35 ,LDL 87,AST 24,ALT : CK 65 12/27/16:SOD 140, K 4.1, CL 105, CO2 28, GL 99, BUN 15, CR 1.00 12-25-2016 SOD 140, K 4.1, CL 105, CO2 28, GL 99, BUN 15, CR 1.0237-04-5390 SOD 141, K 4.0, CL 107, CO2 24, GL 117, BUN 17, CR 1.10 TC 140, HDL 25, TR 284, LDL 95 EKG, 04/30/09: NSR, WNL; mu07/04/17 EKst degree A-V block. Probably old anterior CA. Possibly acute inferior CA.; smEKG 01/23/17 : abnormality of unclear orgin, Anterior myocardial infarction age undetermined Possibly acute inferior myocardial [id number] EKG: Atrial sense -electronic ventricular pacemaker. No further interpretation is possible. Atypical ECG EKG 01/03/17: Probably NSR within normal limits 07/31/18 ECHO: Study quality: Technically difficult. LV chamber size is normal. LV wall thickness is mildly increased. There is normal systolic function and contractility. The estimated left ventricle ejection fraction is 55-60%(normal). Normal left atrial pressure and grade I diastolic dysfunction. There is trace mitral regurgitation. There is trace tricuspid regurgitation. There is mild pulmonary hypertension. Estimated RVSP is 36 mmHg. Had ECHO done in 08/01/17 showed normal global systolic function , EF 55-60% , mild tricuspid regurgitation, trace pericardial effusion. 12/27/16 ECHO: Normal left ventricular size. Normal left ventricular wall thickness. Normal global left ventricular systolic function. Normal right ventricular size. Normal right ventricular systolic function. Small circumferential pericardial effusion. No echocardiographic evidence to suggest pericardial tamponade. Limited study for assessment of pericardial effusion. 12/26/16 ECHO: Normal left ventricular size, normal left ventricular wall thickness. Normal global left ventricular systolic function. Small pericardial effusion. No echocardiographic evidence to suggest pericardial tamponade. 07/30/19 Arterial duplex- Mild PVD. 06/04/19 Arterial doppler: No significant lower extremity peripheral arterial disease detected in right leg. Calcified non-compressible lower extremitiy arteries in lower left extremity. CATH 01/18/17 : Left main,medium size artery no significant disease or stenosis, LAD showed proximal eccentric lesion about 50% narrowing otherwise no obstructive. 02/24/17 CT ABDOMEN/PELVIS: No CT evidence of obstructive uropathy or acute inflammatory process. Diverticulosis. Cardiomegaly with small pericardial effusion. Shaji Serrano MD [address] [place], [address], [facility] 11/05/2022 12:45:52 05/09/2023 text/html 05/09/23CC : Car dia follow [id number] man with history of Hypertension, and SSS s/p pacemaker placement, moderate CAD (01/2017 50% LAD stenosis), trace pericardial effusion 2017, is here for 6 month follow-up with labs results. He was last seen in the clinic on 11/05/22, since then he had one time of BP monitor reading of heart rate of 37 but his pacer interrogation was perfictHe denies ER visits and hospitalizations since he was last seen. Denies chest pain. no ccDenies shortness of breath at rest. Has mild dyspnea on exertion.No orthopnea. No PNDs.Denies heart palpitations.Denies dizziness. Denies syncope or near syncope.No ankle or leg edema.No major bleeding events.No reported side effects from medications. Taking medications as prescribed with no missed doses.Denies snoring, daytime somnolence and AM headache.*Last LDL was 80 done on 02/27/23.Pt takes ezetimibe 10 mg. 02/28/23:Na 141,K 4.4,CL 101,CO2 30,GLU 116,BUN 17,Cr 1.02 .02/28/23:TC 162,TG 256,HDL 31,LDL 80. Previously:He has foot pain and swelling. He got COVID in January. He is following up with pain management for his back and injection was help control his pain. Last LDL was 96 done on 07/19/20 .Pt dose not takes any statins due to muscle pain. *Had ECHO done in 02/26/21 showed LV chamber size is normal,LV wall thickness is mildly increased,diastolic function is difficult to determine,left atrium chamber is mildly dilated,there is mild aortic root calcification,mild elevation RV systolic pressure ,pacemaker pace. *Had arterial duplex done in 07/30/19 showed mild PVD . Recent pacer check 07-29-19 functioning well without irregularities or arrythmias.At previous appt, pacer check 04-30-19 showed NSVT; increased Metoprolol xl to 50mg daily. *Had CATH done in 01/18/17 revealed Left main,medium size artery no significant disease or stenosis, LAD showed proximal eccentric lesson about 50% narrowing otherwise no obstructive. Results from this visit, or from the past: CMP, serum or plasma 07-20-2020 07/20/20 CMP: Na 142, K 4.7, CL 103, CO2 28, GL 15.7, B 21, CR 1.22, AST 31, ALT 18, CK 105, Mg 2.1 lipid panel, blood 07-20-2020 07/20/20 LIPID: TC 154, TG 150, HDL 28, LDL 96 10/02/18 CMP: NA 141, K 4.2, CL 105, CO2 26, GLU 94, BUN 23, CR 1.19, AST 58, ALT 67 10/02/18 LIPID: TC 152, TR 118, HDL 33, LDL 95 02/13/17: Na 141 ,K 4.3, CL 104 ,CO2 28 ,GLU 113 ,BUN 20 ,CR 1.15 ,TC 145 ,TG 115, HDL 35 ,LDL 87,AST 24,ALT : CK 65 12/27/16:SOD 140, K 4.1, CL 105, CO2 28, GL 99, BUN 15, CR 1.00 12-25-2016 SOD 140, K 4.1, CL 105, CO2 28, GL 99, BUN 15, CR 1.8209-08-6524 SOD 141, K 4.0, CL 107, CO2 24, GL 117, BUN 17, CR 1.10 TC 140, HDL 25, TR 284, LDL 95 EKG, 04/30/09: NSR, WNL; mu07/04/17 EKst degree A-V block. Probably old anterior CA. Possibly acute inferior CA.; smEKG 01/23/17 : abnormality of unclear orgin, Anterior myocardial infarction age undetermined Possibly acute inferior myocardial [id number] EKG: Atrial sense -electronic ventricular pacemaker. No further interpretation is possible. Atypical ECG EKG 01/03/17: Probably NSR within normal limits 07/31/18 ECHO: Study quality: Technically difficult. LV chamber size is normal. LV wall thickness is mildly increased. There is normal systolic function and contractility. The estimated left ventricle ejection fraction is 55-60%(normal). Normal left atrial pressure and grade I diastolic dysfunction. There is trace mitral regurgitation. There is trace tricuspid regurgitation. There is mild pulmonary hypertension. Estimated RVSP is 36 mmHg. Had ECHO done in 08/01/17 showed normal global systolic function , EF 55-60% , mild tricuspid regurgitation, trace pericardial effusion. 12/27/16 ECHO: Normal left ventricular size. Normal left ventricular wall thickness. Normal global left ventricular systolic function. Normal right ventricular size. Normal right ventricular systolic function. Small circumferential pericardial effusion. No echocardiographic evidence to suggest pericardial tamponade. Limited study for assessment of pericardial effusion. 12/26/16 ECHO: Normal left ventricular size, normal left ventricular wall thickness. Normal global left ventricular systolic function. Small pericardial effusion. No echocardiographic evidence to suggest pericardial tamponade. 07/30/19 Arterial duplex- Mild PVD. 06/04/19 Arterial doppler: No significant lower extremity peripheral arterial disease detected in right leg. Calcified non-compressible lower extremitiy arteries in lower left extremity. CATH 01/18/17 : Left main,medium size artery no significant disease or stenosis, LAD showed proximal eccentric lesion about 50% narrowing otherwise no obstructive. 02/24/17 CT ABDOMEN/PELVIS: No CT evidence of obstructive uropathy or acute inflammatory process. Diverticulosis. Cardiomegaly with small pericardial effusion. Shaji Serrano MD [address] [place], [address], [facility] 05/09/2023 13:09:23 10/28/2023 text/html 10/28/23CC : Cardiac follow up, pre op -khvq-zhb man with history of Hypertension, and SSS s/p pacemaker placement, moderate CAD (01/2017 50% LAD stenosis), trace pericardial effusion 2017, is here for 6 month follow-up. He was last seen in the clinic on 05/09/23, since then he has back pain, and is getting back surgeryHe denies ER visits and hospitalizations since he was last seen. Denies chest pain.Denies shortness of breath at rest. Has mild dyspnea on exertion.No orthopnea. No PNDs.Denies heart palpitations.Denies dizziness. Denies syncope or near syncope.No ankle or leg edema.No major bleeding events.No reported side effects from medications. Taking medications as prescribed with no missed doses.Denies snoring, daytime somnolence and AM headache.*Last LDL was 80 done on 02/27/23.Pt takes ezetimibe 10 mg. He has foot pain and swelling. He is following up with pain management for his back and injection was help control his pain. Last LDL was 96 done on 07/19/20 .Pt dose not takes any statins due to muscle pain. *Had ECHO done in 02/26/21 showed LV chamber size is normal,LV wall thickness is mildly increased,diastolic function is difficult to determine,left atrium chamber is mildly dilated,there is mild aortic root calcification,mild elevation RV systolic pressure ,pacemaker pace. *Had arterial duplex done in 07/30/19 showed mild PVD . Recent pacer check 07-29-19 functioning well without irregularities or arrythmias.At previous appt, pacer check 04-30-19 showed NSVT; increased Metoprolol xl to 50mg daily. *Had CATH done in 01/18/17 revealed Left main,medium size artery no significant disease or stenosis, LAD showed proximal eccentric lesson about 50% narrowing otherwise no obstructive. Results from this visit, or from the past:CMP, serum or plasma 07-20-2020 07/20/20 CMP: Na 142, K 4.7, CL 103, CO2 28, GL 15.7, B 21, CR 1.22, AST 31, ALT 18, CK 105, Mg 2.1 lipid panel, blood 07-20-2020 07/20/20 LIPID: TC 154, TG 150, HDL 28, LDL 96 10/02/18 CMP: NA 141, K 4.2, CL 105, CO2 26, GLU 94, BUN 23, CR 1.19, AST 58, ALT 67 10/02/18 LIPID: TC 152, TR 118, HDL 33, LDL 95 02/13/17: Na 141 ,K 4.3, CL 104 ,CO2 28 ,GLU 113 ,BUN 20 ,CR 1.15 ,TC 145 ,TG 115, HDL 35 ,LDL 87,AST 24,ALT : CK 65 12/27/16:SOD 140, K 4.1, CL 105, CO2 28, GL 99, BUN 15, CR 1.00 12-25-2016 SOD 140, K 4.1, CL 105, CO2 28, GL 99, BUN 15, CR 1.6622-91-0870 SOD 141, K 4.0, CL 107, CO2 24, GL 117, BUN 17, CR 1.10 TC 140, HDL 25, TR 284, LDL 95 EKG, 04/30/09: NSR, WNL; mu07/04/17 EKst degree A-V block. Probably old anterior CA. Possibly acute inferior CA.; smEKG 01/23/17 : abnormality of unclear orgin, Anterior myocardial infarction age undetermined Possibly acute inferior myocardial [id number] EKG: Atrial sense -electronic ventricular pacemaker. No further interpretation is possible. Atypical ECG EKG 01/03/17: Probably NSR within normal limits 07/31/18 ECHO: Study quality: Technically difficult. LV chamber size is normal. LV wall thickness is mildly increased. There is normal systolic function and contractility. The estimated left ventricle ejection fraction is 55-60%(normal). Normal left atrial pressure and grade I diastolic dysfunction. There is trace mitral regurgitation. There is trace tricuspid regurgitation. There is mild pulmonary hypertension. Estimated RVSP is 36 mmHg. Had ECHO done in 08/01/17 showed normal global systolic function , EF 55-60% , mild tricuspid regurgitation, trace pericardial effusion. 12/27/16 ECHO: Normal left ventricular size. Normal left ventricular wall thickness. Normal global left ventricular systolic function. Normal right ventricular size. Normal right ventricular systolic function. Small circumferential pericardial effusion. No echocardiographic evidence to suggest pericardial tamponade. Limited study for assessment of pericardial effusion. 12/26/16 ECHO: Normal left ventricular size, normal left ventricular wall thickness. Normal global left ventricular systolic function. Small pericardial effusion. No echocardiographic evidence to suggest pericardial tamponade. 07/30/19 Arterial duplex- Mild PVD. 06/04/19 Arterial doppler: No significant lower extremity peripheral arterial disease detected in right leg. Calcified non-compressible lower extremitiy arteries in lower left extremity. CATH 01/18/17 : Left main,medium size artery no significant disease or stenosis, LAD showed proximal eccentric lesion about 50% narrowing otherwise no obstructive. 02/24/17 CT ABDOMEN/PELVIS: No CT evidence of obstructive uropathy or acute inflammatory process. Diverticulosis. Cardiomegaly with small pericardial effusion. Shaji Serrano MD [address] [place], [address], [facility] 10/28/2023 13:32:49 01/25/2024 text/html 01/25/24CC : Cardiac follow [id number] man with history of Hypertension, and SSS s/p pacemaker placement, moderate CAD (01/2017 50% LAD stenosis), trace pericardial effusion 2017, is here for 3 month follow-up with ECHO results. He was last seen in the clinic on 10/28/23, since then he Had ECHO on 10/31/23 showed V chamber size is normal. LV wall thickness is mildly increased. The estimated left ventricle ejection fraction is 55-60% (normal).He denies ER visits and hospitalizations since he was last seen. Today reports:no ccDenies chest pain.Denies shortness of breath at rest. Has mild dyspnea on exertion.No orthopnea. No PNDs.Denies heart palpitations.Denies dizziness. Denies syncope or near syncope.no more leg edema.No major bleeding events.No reported side effects from medications. Taking medications as prescribed with no missed doses.Denies snoring, daytime somnolence and AM headache.*Last LDL was 80 done on 02/27/23.Pt takes ezetimibe 10 mg. *Had ECHO on 10/31/23 showed V chamber size is normal. LV wall thickness is mildly increased. The estimated left ventricle ejection fraction is 55-60% (normal). The aortic valve is mildly calcified. There is mild tricuspid regurgitation. Mild elevation of estimated RV systolic pressure. Estimated RVSP systolic pressure is 45.34 mmHg. Pacemaker-Unknown pace. Previously:*Had arterial duplex done in 07/30/19 showed mild PVD . *Had CATH done in 01/18/17 revealed Left main,medium size artery no significant disease or stenosis, LAD showed proximal eccentric lesson about 50% narrowing otherwise no obstructive. Results from this visit, or from the past:CMP, serum or plasma 07-20-2020 07/20/20 CMP: Na 142, K 4.7, CL 103, CO2 28, GL 15.7, B 21, CR 1.22, AST 31, ALT 18, CK 105, Mg 2.1 lipid panel, blood 07-20-2020 07/20/20 LIPID: TC 154, TG 150, HDL 28, LDL 96 10/02/18 CMP: NA 141, K 4.2, CL 105, CO2 26, GLU 94, BUN 23, CR 1.19, AST 58, ALT 67 10/02/18 LIPID: TC 152, TR 118, HDL 33, LDL 95 02/13/17: Na 141 ,K 4.3, CL 104 ,CO2 28 ,GLU 113 ,BUN 20 ,CR 1.15 ,TC 145 ,TG 115, HDL 35 ,LDL 87,AST 24,ALT : CK 65 12/27/16:SOD 140, K 4.1, CL 105, CO2 28, GL 99, BUN 15, CR 1.00 12-25-2016 SOD 140, K 4.1, CL 105, CO2 28, GL 99, BUN 15, CR [id number] SOD 141, K 4.0, CL 107, CO2 24, GL 117, BUN 17, CR 1.10 TC 140, HDL 25, TR 284, LDL 95 EKG, 04/30/09: NSR, WNL; mu07/04/17 EKst degree A-V block. Probably old anterior CA. Possibly acute inferior CA.; smEKG 01/23/17 : abnormality of unclear orgin, Anterior myocardial infarction age undetermined Possibly acute inferior myocardial [id number] EKG: Atrial sense -electronic ventricular pacemaker. No further interpretation is possible. Atypical ECG EKG 01/03/17: Probably NSR within normal limits 07/31/18 ECHO: Study quality: Technically difficult. LV chamber size is normal. LV wall thickness is mildly increased. There is normal systolic function and contractility. The estimated left ventricle ejection fraction is 55-60%(normal). Normal left atrial pressure and grade I diastolic dysfunction. There is trace mitral regurgitation. There is trace tricuspid regurgitation. There is mild pulmonary hypertension. Estimated RVSP is 36 mmHg. Had ECHO done in 08/01/17 showed normal global systolic function , EF 55-60% , mild tricuspid regurgitation, trace pericardial effusion. 12/27/16 ECHO: Normal left ventricular size. Normal left ventricular wall thickness. Normal global left ventricular systolic function. Normal right ventricular size. Normal right ventricular systolic function. Small circumferential pericardial effusion. No echocardiographic evidence to suggest pericardial tamponade. Limited study for assessment of pericardial effusion. 12/26/16 ECHO: Normal left ventricular size, normal left ventricular wall thickness. Normal global left ventricular systolic function. Small pericardial effusion. No echocardiographic evidence to suggest pericardial tamponade. 07/30/19 Arterial duplex- Mild PVD. 06/04/19 Arterial doppler: No significant lower extremity peripheral arterial disease detected in right leg. Calcified non-compressible lower extremitiy arteries in lower left extremity. CATH 01/18/17 : Left main,medium size artery no significant disease or stenosis, LAD showed proximal eccentric lesion about 50% narrowing otherwise no obstructive. 02/24/17 CT ABDOMEN/PELVIS: No CT evidence of obstructive uropathy or acute inflammatory process. Diverticulosis. Cardiomegaly with small pericardial effusion. Shaji Serrano MD [address] [place], [address], [facility] 01/25/2024 18:28:29 08/03/2024 text/html 08/03/24CC : Cardiac follow up, dyspnea on [id number] man with history of Hypertension, and SSS s/p pacemaker placement, moderate CAD (01/2017 50% LAD stenosis), trace pericardial effusion 2017, is here for 6 month follow-up. He was last seen in the clinic on 01/25/24, since then he now has Diabetes MellitusHe denies ER visits and hospitalizations since he was last seen. Today reports:Denies chest pain.Denies shortness of breath at rest. Has mild dyspnea on exertion.No orthopnea. No PNDs.Denies heart palpitations.Denies dizziness. Denies syncope or near syncope.No ankle or leg edema.No major bleeding events.No reported side effects from medications. Taking medications as prescribed with no missed doses.Denies snoring, daytime somnolence and AM headache.*Last LDL was 80 done on 02/28/23.Pt takes ezetimibe 10 mg . Previously:*Had ECHO on 10/31/23 showed V chamber size is normal. LV wall thickness is mildly increased. The estimated left ventricle ejection fraction is 55-60% (normal). The aortic valve is mildly calcified. There is mild tricuspid regurgitation. Mild elevation of estimated RV systolic pressure. Estimated RVSP systolic pressure is 45.34 mmHg. Pacemaker-Unknown pace. *Had arterial duplex done in 07/30/19 showed mild PVD . *Had CATH done in 01/18/17 revealed Left main,medium size artery no significant disease or stenosis, LAD showed proximal eccentric lesson about 50% narrowing otherwise no obstructive. Results from this visit, or from the past:CMP, serum or plasma 07-20-2020 07/20/20 CMP: Na 142, K 4.7, CL 103, CO2 28, GL 15.7, B 21, CR 1.22, AST 31, ALT 18, CK 105, Mg 2.1 lipid panel, blood 07-20-2020 07/20/20 LIPID: TC 154, TG 150, HDL 28, LDL 96 10/02/18 CMP: NA 141, K 4.2, CL 105, CO2 26, GLU 94, BUN 23, CR 1.19, AST 58, ALT 67 10/02/18 LIPID: TC 152, TR 118, HDL 33, LDL 95 02/13/17: Na 141 ,K 4.3, CL 104 ,CO2 28 ,GLU 113 ,BUN 20 ,CR 1.15 ,TC 145 ,TG 115, HDL 35 ,LDL 87,AST 24,ALT : CK 65 12/27/16:SOD 140, K 4.1, CL 105, CO2 28, GL 99, BUN 15, CR 1.00 12-25-2016 SOD 140, K 4.1, CL 105, CO2 28, GL 99, BUN 15, CR [id number] SOD 141, K 4.0, CL 107, CO2 24, GL 117, BUN 17, CR 1.10 TC 140, HDL 25, TR 284, LDL 95 EKG, 04/30/09: NSR, WNL; mu07/04/17 EKst degree A-V block. Probably old anterior CA. Possibly acute inferior CA.; smEKG 01/23/17 : abnormality of unclear orgin, Anterior myocardial infarction age undetermined Possibly acute inferior myocardial [id number] EKG: Atrial sense -electronic ventricular pacemaker. No further interpretation is possible. Atypical ECG EKG 01/03/17: Probably NSR within normal limits 07/31/18 ECHO: Study quality: Technically difficult. LV chamber size is normal. LV wall thickness is mildly increased. There is normal systolic function and contractility. The estimated left ventricle ejection fraction is 55-60%(normal). Normal left atrial pressure and grade I diastolic dysfunction. There is trace mitral regurgitation. There is trace tricuspid regurgitation. There is mild pulmonary hypertension. Estimated RVSP is 36 mmHg. Had ECHO done in 08/01/17 showed normal global systolic function , EF 55-60% , mild tricuspid regurgitation, trace pericardial effusion. 12/27/16 ECHO: Normal left ventricular size. Normal left ventricular wall thickness. Normal global left ventricular systolic function. Normal right ventricular size. Normal right ventricular systolic function. Small circumferential pericardial effusion. No echocardiographic evidence to suggest pericardial tamponade. Limited study for assessment of pericardial effusion. 12/26/16 ECHO: Normal left ventricular size, normal left ventricular wall thickness. Normal global left ventricular systolic function. Small pericardial effusion. No echocardiographic evidence to suggest pericardial tamponade. 07/30/19 Arterial duplex- Mild PVD. 06/04/19 Arterial doppler: No significant lower extremity peripheral arterial disease detected in right leg. Calcified non-compressible lower extremitiy arteries in lower left extremity. CATH 01/18/17 : Left main,medium size artery no significant disease or stenosis, LAD showed proximal eccentric lesion about 50% narrowing otherwise no obstructive. 02/24/17 CT ABDOMEN/PELVIS: No CT evidence of obstructive uropathy or acute inflammatory process. Diverticulosis. Cardiomegaly with small pericardial effusion. Shaji Serrano MD [address] [place], [address], [facility] 08/03/2024 12:36:28
--- NOTE | 2024-10-04 16:54 | ED.GENADULT ---
HPI - General Adult General Chief complaint: Extremity Injury, Upper Stated complaint: fall L upper arm pain Time Seen by Provider: 10/04/24 15:44 History of Present Illness HPI narrative: 79-year-old male present to the emergency department for evaluation for left elbow and left shoulder pain. Patient had a mechanical fall during which she tripped over a curb and injured his left arm. Patient states he does have macular degeneration with loss of vision in the eye which causes some to have poor depth perception. Patient reports he has had multiple falls. Patient does have some left elbow pain but primarily appearance of left shoulder pain. Patient is unable to actively move the shoulder secondary to pain but does have almost full range of motion with passive movement of the left arm. Related Data Home Medications ?Medication ?Instructions ?Recorded ?Confirmed ?Last Taken ?Type fenofibrate 160 mg tablet 160 mg PO QPM 05/29/19 11/09/23 06/05/23 19:45 History metoprolol succinate 50 mg 50 mg PO QPM 05/29/19 11/09/23 06/05/23 19:45 History tablet,extended release 24 hr acetaminophen 500 mg capsule 1,000 mg PO Q6H PRN Pain 11/09/23 11/09/23 Unknown History bempedoic acid 180 mg tablet 180 mg PO HS 11/09/23 11/09/23 Unknown History (Nexletol) cyanocobalamin (vitamin B-12) 1,000 mcg PO DAILY 11/09/23 11/09/23 Unknown History 1,000 mcg capsule ezetimibe 10 mg tablet 10 mg PO QHS 11/09/23 11/09/23 Unknown History furosemide 20 mg tablet 20 mg PO QAM 11/09/23 11/09/23 Unknown History ibuprofen 800 mg tablet 800 mg PO TID PRN Pain 11/09/23 11/09/23 Unknown History icosapent ethyl 1 gram capsule 1 g PO BID 11/09/23 11/09/23 Unknown History (Vascepa) magnesium 500 mg tablet 15 mg PO DAILY 11/09/23 11/09/23 Unknown History omeprazole 40 mg capsule,delayed 40 mg PO QAM 11/09/23 11/09/23 Unknown History release Allergies Allergy/AdvReac Type Severity Reaction Status Date / Time meperidine Allergy Severe STOPS HIS Verified 02/28/24 13:32 HEART Tetanus Vaccines and Toxoid Allergy Intermediate Rash Verified 02/28/24 13:32 adhesive tape AdvReac Rash Verified 02/28/24 13:32 Review of Systems Review of Systems: All systems reviewed & are unremarkable except as noted in HPI and below PMFSH Past Medical History Medical History Type 2 diabetes mellitus Coronary artery disease Nonobstructive coronary artery disease with 50% stenosis of the LAD and 40% stenosis of the RCA on cardiac catheterization December 2016. Gastroesophageal reflux disease Chronic obstructive pulmonary disease Macular degeneration Depression Complete heart block Status post pacemaker placement Pulmonary embolism Hyperlipidemia Hypertension Pacemaker Surgical History Surgical History History of lumbar fusion L3-4 5 in S1 History of repair of left rotator cuff History of appendectomy History of colonoscopy History of cardiac catheterization December 2016 Dr. Serrano Family History Family History Mother Left bundle branch block Sibling Coronary artery disease Sister Father Cerebrovascular accident Social History Social History Social History: Surrogate medical decision maker: Gitaval Borjas, spouse. Code status: Full code. 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 Spiritual care concerns: No Agree to blood products: Yes Exam Narrative: APPEARANCE: Well appearing, no pain, no distress, well-nourished. HEAD: normocephalic, atraumatic. EYES: PERRLA/EOMI, conjunctivae clear. NOSE: Normal no drainage EARS:TMS clear with good light reflex. THROAT: Pharynx clear, no exudate. NECK: Supple. No adenopathy, no masses. RESPIRATORY: Airway patent, respirations nonlabored. Clear to auscultation bilaterally, no rales, rhonchi, wheezing. CARDIOVASCULAR: Regular rate and rhythm without murmurs rubs or gallops. ABDOMINAL: Soft, nontender, nondistended, normal bowel sounds MUSCULOSKELETAL: Normal passive range of motion of the left shoulder, minimal tenderness to left elbow NEURO: Alert. Cranial nerves II through XII intact. Good gait. Good coordination SKIN: Warm, dry. Normal Color Course Vital Signs Vital signs: Vital Signs Temperature 97.8 F 10/04/24 14:42 Pulse Rate 86 10/04/24 14:42 Respiratory Rate 18 10/04/24 14:42 Blood Pressure 151/58 H 10/04/24 14:42 Pulse Oximetry 97 10/04/24 14:42 Oxygen Delivery Room Air 10/04/24 14:42 Temperature 97.6 F 10/04/24 17:23 Pulse Rate 78 10/04/24 17:23 Respiratory Rate 16 10/04/24 17:23 Blood Pressure 130/80 10/04/24 17:23 Pulse Oximetry 100 10/04/24 17:23 Oxygen Delivery Room Air 10/04/24 14:42 Medical Decision Making MDM Narrative Medical decision making narrative: 79-year-old male present to the emergency department for left shoulder strain left elbow pain. X-rays were negative for acute fracture dislocation of shoulder or elbow. Patient's exam is consistent with rotator cuff strain. X-ray was concerning for possible occult fracture of the left elbow. Patient was provided a sling for comfort and treatment of the possible occult elbow fracture. Patient was provided outpatient follow-up with Orthopedics. Differential Diagnosis Differential Diagnosis: Elbow fracture, elbow contusion, shoulder fracture, rotator cuff injury, shoulder contusion Vital Signs Vital Signs: Vital Signs Temperature 97.8 F 10/04/24 14:42 Pulse Rate 86 10/04/24 14:42 Respiratory Rate 18 10/04/24 14:42 Blood Pressure 151/58 H 10/04/24 14:42 Pulse Oximetry 97 10/04/24 14:42 Oxygen Delivery Room Air 10/04/24 14:42 Temperature 97.6 F 10/04/24 17:23 Pulse Rate 78 10/04/24 17:23 Respiratory Rate 16 10/04/24 17:23 Blood Pressure 130/80 10/04/24 17:23 Pulse Oximetry 100 07/18/25 17:23 Oxygen Delivery Room Air 10/04/24 14:42 Imaging Data Radiologist's impression: Impressions Elbow X-Ray 10/04/24 15:52 IMPRESSION: No definite acute osseous abnormality left elbow. Slight elevation of the anterior fat pad is seen which may indicate a fracture in the area. Follow-up advised. Humerus X-Ray 10/04/24 15:59 IMPRESSION: No definite acute osseous abnormality left humerus. Discharge Plan Discharge Clinical Impression: Injury of left shoulder, Injury of elbow, left Patient Disposition: Home Condition: Stable Instructions: Antibiotic Form, Rotator Cuff Injury (ED), Elbow Fracture (DC), How to Use a Sling (ED) Additional Instructions: Splint care as directed for the elbow and shoulder injury. Tylenol for pain control, replace Tylenol with [place] as needed for additional pain control. Do not take Tylenol and [place] at the same time as both to contain acetaminophen. Have close follow-up with Orthopedics. If you have any worsening symptoms then please call or return to the emergency department. Patient Language: Croatian Prescriptions: New hydrocodone-acetaminophen 5-325 mg tablet 1 tablet PO Q12H PRN (Reason: pain) Qty: 14 0RF cyclobenzaprine 10 mg tablet 10 mg PO BID PRN (Reason: muscle spasm) Qty: 14 0RF No Action pregabalin 150 mg capsule 150 mg PO .at night Qty: 30 5RF metoprolol succinate 50 mg Tablet Extended Release 24 Hr 50 mg PO QPM fenofibrate 160 mg Tablet 160 mg PO QPM Patient Comments: ALTERNATE WITH NEXLETOL(SAMPLES) ibuprofen 800 mg tablet 800 mg PO TID PRN (Reason: Pain) Nexletol 180 mg Tablet 180 mg PO HS Patient Comments: ALTERNATES WITH FENFIBRATE acetaminophen 500 mg Capsule 1,000 mg PO Q6H PRN (Reason: Pain) furosemide 20 mg tablet 20 mg PO QAM icosapent ethyl [Vascepa] 1 gram capsule 1 g PO BID omeprazole 40 mg capsule,delayed release(DR/EC) 40 mg PO QAM ezetimibe 10 mg tablet 10 mg PO QHS Patient Comments: TAKES WITH FENOFIBRATE/ALTERNATES WITH NEXETOL magnesium 500 mg Tablet 15 mg PO DAILY cyanocobalamin (vitamin B-12) 1,000 mcg Capsule 1,000 mcg PO DAILY cyclobenzaprine 10 mg Tablet 10 mg PO TID PRN (Reason: Muscle Spasms) 10 Days Qty: 30 0RF oxycodone 5 mg Tablet 5 mg PO Q6H PRN (Reason: Pain Rated 4-6) 7 Days Qty: 28 0RF Follow-up/Referrals: Dario Coe MD [Physician] - Misti Bynum APRN [Primary Care Provider] -
[2024-10-04] MEDS: HYDROcodone/acetaminophen (*CRX) 5-325 MG TABLET 1 TAB PO (17:14)
[2024-10-04 17:23] VITALS: BP 130/80; PULSE 78; RESP 16; TEMP 36.4; O2SAT 100
--- OUTSIDE RECORDS SUMMARY | 2024-10-04 18:48 | XMS_ITS | Continuity of Care Document ---
Author Organization [facility] Address [address] [place] [address] [place] [address] Phone Care Team Providers Care Picture Frame Maker Name Role Phone Jose David Bravo DO Unavailable Unavailable Advance Directives Directive Yes / No Effective Date File Name No Information Encounters Encounter Description Practice Location Reason(s) For Visit Diagnoses Date Provider Providers Copied on Encounter [facility], [address] [place], [place], [id number], [place] tel:[phone] No Information Shelly Chávez. [address] [facility], [place], [address], [place]. tel: [phone] Family History Family Member Type Diagnosis Age At Onset No Information Payers Payer name Insurance type Covered republican ID Authoriza tion(s) [place] [id number] Social History Type Description Quantity Date Captured [...]
--- OUTSIDE RECORDS SUMMARY | 2024-10-04 18:48 | XMS_ITS | Clinical Summary ---
Author Organization [facility] Address [address] [place] [address] Care Team Providers Care Floor Inspector Name Role Phone Sacha Haro Primary Care [...] this topic Medical Devices Implanted Type Area Chief Clinical Dietitian Device Identifier Shelf Expiration Date Model / Serial / Lot Ra Lead-12/26/2016 Implanted:Qty: 1 on 12/26/2016 Lead Implant Right: Atrium [employer] FAILURE - DIV M 5076-52 / [id number] / Rv Lead-12/26/2016 Implanted:Qty: 1 on 12/26/2016 Lead Implant Right: Ventricle [employer] FAILURE - DIV M 5076-58 / [id number] / Pacemaker-12/26 Implanted:Qty: 1 on 12/26/2016 Pacemaker Chest [employer] FAIL[employer] - DIV M [id number] / [id number] / Description: MRI Conditional under following [...] to C7, Supine or Prone only Insurance [facility] Care Teams Floor Inspector Relationship Specialty Start Date End Date Sacha Haro PA [facility] [place] [id number] PCP - General PHYSICIAN PURCHASER 07/07/23
== END 2024-10-04 18:50 | disposition home or self-care (01) ==
LOC: ANHED 18:47
PROVIDERS: Emergency Provider Emergency Medicine; PCP Nurse Practitioner Adult Health
DX: S49.92XA Unspecified injury of left shoulder and upper arm, initial encounter (principal); S59.902A Unspecified injury of left elbow, initial encounter; I25.10 Atherosclerotic heart disease of native coronary artery without angina pectoris; I10 Essential (primary) hypertension; E11.9 Type 2 diabetes mellitus without complications; E78.5 Hyperlipidemia, unspecified; J44.9 Chronic obstructive pulmonary disease, unspecified; H35.30 Unspecified macular degeneration; K21.9 Gastro-esophageal reflux disease without esophagitis; F32.A Depression, unspecified; Z95.0 Presence of cardiac pacemaker; Z98.1 Arthrodesis status; Z86.711 Personal history of pulmonary embolism; Z79.899 Other long term (current) drug therapy; W10.1XXA Fall (on)(from) sidewalk curb, initial encounter
CPT/HCPCS: 73060; 73080; 99284; A4565; A9270

== ENCOUNTER 2024-10-18 15:14 | Outpatient (CLI) | payer MEDICARE, SELFPAY ==
--- NOTE | ~2024-10-18 | XR_ITS ---
EXAMINATION: XR shoulder LT min 2V DATE: 10/18/2024 15:36 INDICATION: Rotator cuff muscle and tendon strain at the left shoulder TECHNIQUE: AP internally and externally rotated, AP oblique externally rotated and transscapular Y vi ews of the left shoulder were obtained. COMPARISON: None FINDINGS: Normal alignment. No fracture.Mild glenohumeral osteoarthritis with prominent marginal osteophytes a long the posterior and inferior glenoid. Mild acromion clavicular osteoarthritis. Large anterior suba cromial spur. Subtly amorphous calcific density overlying the left humeral head consistent with rotat or cuff calcific tendinitis. Visualized portion of the left lung are clear. Partially visualized to a cardiac pacemaker with lead tips extending through the left brachiocephalic vein and beyond the [place] ins of the field of imaging. IMPRESSION: 1. 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 No acute osseous adenop athy. 2. Large anterior subacromial spur which could predispose towards rotator cuff tear. 3. Rotator cuff calcific tendinitis. Reviewed, dictated and finalized at location A. IMPRESSION: 1. 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 N o acute osseous adenopathy. 2. Large anterior subacromial spur which could predispose towards rotator cuff tear. 3. Rotator cuff calcific tendinitis.
--- OUTSIDE RECORDS SUMMARY | 2024-10-18 15:21 | XMS_ITS | Clinical Summary ---
Author Organization [facility] Address [address] [place] [address] Care Team Providers Care Assistant Professor Of Art Name Role Phone Sacha Haro Primary Care [...] this topic Medical Devices Implanted Type Area Brewery Representative Device Identifier Shelf Expiration Date Model / Serial / Lot Ra Lead-12/26/2016 Implanted:Qty: 1 on 12/26/2016 Lead Implant Right: Atrium [employer] CARDI[employer] RHY[employer]M AND HEART FAILURE - DIV M 5076-52 / [id number] / Rv Lead-12/26/2016 Implanted:Qty: 1 on 12/26/2016 Lead Implant Right: Ventricle [employer] C[employer] RHYTHM AND HEART FAILURE - DIV M 5076-58 / [id number] / Pacemaker-12/26 Implanted:Qty: 1 on 12/26/2016 Pacemaker Chest [employer] C[employer] RHY[employer] HEART FAILURE - DIV M [id number] / [id number] / Description: MRI Conditional under following [...] to C7, Supine or Prone only Insurance [facility] Care Teams Assistant Professor Of Art Relationship Specialty Start Date End Date Sacha Haro PA [facility] [place] [id number] PCP - General PHYSICIAN ANALYST BUSINESS ANALYSIS 07/07/23
--- OUTSIDE RECORDS SUMMARY | 2024-10-18 15:21 | XMS_ITS | Continuity of Care Document ---
Author Organization [facility] Address [address] [place] [address] [place] [address] Phone Care Team Providers Care Low Raw Sugar Cutter Name Role Phone Jose David Bravo DO Unavailable Unavailable Advance Directives Directive Yes / No Effective Date File Name No Information Encounters Encounter Description Practice Location Reason(s) For Visit Diagnoses Date Provider Providers Copied on Encounter [facility], [address] [place], [place], [id number], [place] tel:[phone] [facility] No Information Shelly Chávez. [address] [facility], [place], [address], [place]. tel: [phone] Family History Family Member Type Diagnosis Age At Onset No Information Payers Payer name Insurance type Covered constitution party ID Authoriza tion(s) [place] [id number] Social History Type Description Quantity Date Captured [...]
== END 2024-10-18 15:15 | disposition home or self-care (01) ==
PROVIDERS: PCP Nurse Practitioner Adult Health; Visit Provider Orthopaedic Surgery
DX: M19.012 Primary osteoarthritis, left shoulder (principal); M77.8 Other enthesopathies, not elsewhere classified; M65.812 Other synovitis and tenosynovitis, left shoulder; M25.812 Other specified joint disorders, left shoulder; S46.012A Strain of muscle(s) and tendon(s) of the rotator cuff of left shoulder, initial encounter; X58.XXXA Exposure to other specified factors, initial encounter
CPT/HCPCS: 73030

== ENCOUNTER 2024-12-17 16:45 | Outpatient (CLI) | payer MEDICARE, SELFPAY ==
--- NOTE | ~2024-12-17 | XR_ITS ---
XR lumbar spine 2-3V Indication: M54.16 - Radiculopathy, lumbar region, BACK SX 2023 Comparison: None Findings: Moderate loss of vertebral height throughout. Grade 1 retrolisthesis of L1 on L2. Moderate to severe loss of disc height throughout. Soft tissues unremarkable Impression: No acute abnormality. Reviewed, dictated and finalized at location P. Impression: No acute abnormality.
--- NOTE | ~2024-12-17 | XR_ITS ---
EXAMINATION: XR pelvis 1-2V, 12/17/2024 17:05 CDT HISTORY: R10.2 - Pelvic and perineal pain COMPARISON: No comparisons available. Findings: No acute fracture or malalignment. 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 Impression: No acute fracture or malalignment. Reviewed, dictated and finalized at location P. Impression: No acute fracture or malalignment.
== END 2024-12-17 16:46 | disposition home or self-care (01) ==
PROVIDERS: PCP Nurse Practitioner Adult Health; Visit Provider Nurse Practitioner Adult Health
DX: R10.2 Pelvic and perineal pain (principal); M54.16 Radiculopathy, lumbar region; Z98.890 Other specified postprocedural states
CPT/HCPCS: 72100; 72170